=== PATIENT | female | born 1960 | race Caucasian/White ===

== ENCOUNTER 2023-01-25 14:20 | Emergency (ER) | payer OTHER ==
--- OUTSIDE RECORDS SUMMARY | 2023-01-25 14:42 | XMS REPORT | Continuity of Care Document ---
:1960 Author Organization [facility] t Address [address] [place] [address] Care Team Providers Name Role Phone LUCY SMART Attending Clinician Unavailable YISSEL OLVERA Attending Clinician Unavailable Polo Arredondo Attending Clinician Unavailable Polo Cm Attending Clinician Unavailable Von Vallejo Attending Clinician Unavailable Quintin Alanis Attending Clinician Unavailable Thelma, Rosita Sanford Attending Clinician Unavailable Abdoulaye Zarate Attending Clinician Unavailable MICHAELA ARMENDARIZ Attending Clinician Unavailable CONCEPCION ARMANDO Attending Clinician Unavailable OWEN HEMPHILL Attending Clinician Unavailable Pieter Rebolledo Attending Clinician Unavailable MICHAELA ARMENDARIZ Admitting Clinician Unavailable CONCEPCION ARMANDO Admitting Clinician Unavailable OWEN HEMPHILL Admitting Clinician Unavailable Payers Payer Name Policy Type Policy Number Effective Date Expiration Date S ource Problems Condition Condition Condition Status Onset Resolution Last Treating Co mments Source Name Details Category Date Date Treatment Clinician Date h/o Problem 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 (urinary Von tract Regiona infection) l Health Nausea and Problem Inactiv St. vomiting e [facility] Abdominal Problem Active St. pain [facility] Chest pain Problem Inactiv St. e [facility] Severe Problem Active St. malnutriti Von on [facility]a l [facility] Allergies, Adverse Reactions, Alerts Allergy Allergy Status Severity Reaction(s) Onset Inactive Treating Comm ents Source Name Type Date Date Clinician Opioids Allergy Active St[facility] Von Morphine substanc 18:27: Region a Analogue e 04 l s Health Opioids [facility] Morphine substanc 17:27: St. Analogue e 04 [facility] ([place]) Opioids DA [facility] Morphine 00:00: [place] Analogue 00 n s Family History Family Member Diagnosis Comments Start Date Stop Date Source Father Family Myocardial [facility] Regional Infarction? Yes Health Father Family Stroke? Yes [facility] Father Family Diabetes? Yes [facility] Mother Family Breast Cancer? [facility] Yes Health Social History Social Habit Start Date Stop Date Quantity Comments Source Sex Assigned At [birth year] Female [facility] 00:00:00 00:00:00 [facility] Smoking Status Start Date Stop Date Source Unknown if ever smoked [facility] Medications Ordered Filled Start Stop Current Ordering Indication Dosage Frequency Signature Comments Components Source Medication Medication Date Date Medication? Clinician (SIG) Name Name Omeprazole 2019- No 40MG Bedtime St. 03-15 Von 17:58: 18:29 Regiona 05 :50 l Health Omeprazole 2019- No 40MG Bedtime St. 03-15 Von 17:58: 18:29 Regiona 05 :50 l Health Omeprazole 2019- No 40MG Bedtime St. 03-15 Von 17:58: 18:29 Regiona 05 :50 l Health Omeprazole 2019- No 40MG Bedtime [facility] 03[facility]15 [facility] - 16:58: 17:29 St. 05 :50 Von ([place]) Vital Signs Vital Name Observation Time Observation Value Comments Source WEIGHT 2019-05-22 18:25:00 40.179658 kg HEIGHT 2019-05-22 18:25:00 162.56 cm WEIGHT 2019-04-28 04:13:00 39.611437 kg HEIGHT 2019-04-28 04:13:00 162.56 cm WEIGHT 2019-03-15 17:51:00 40.437998 kg HEIGHT 2019-03-15 17:51:00 162.56 cm Procedures Procedure Date / Time Performed Performing Clinician [facility] e CT Abdomen Pelvis W 2022-03-10 14:44:[address] [facility] [address] Brain WO Con 2021-10-31 18:12:00 [facility] ([place]) EKG 12 Lead in 2021-10-31 17:50:00 [facility] Von ([place]) Encounters Start End Encounter Admission Attending Care Care Encounter Source Date/Time Date/Time Type Type Clinicians Facility Department ID 2022-12-30 2022-12-30 Outpatient DIPAK SMART [facility] [id number] [place] 16:02:00 16:02:00 LUCY -[id number] [facility] 2022-12-13 2022-12-13 Outpatient YISSEL ONTIVEROS [facility] [id number] [place] 10:57:00 10:57:00 -[id number] [facility] 2022-03-10 2022-03-10 Emergency ER Arnulfo, STLSJB STLSJB [id number] 14:23:00 17:15:00 Polo -[id number] Jose Renteria n 2022-03-10 2022-03-10 Departed [id number] Reid cfaaaf a1-b St. 14:23:00 17:15:00 Emergency [id number] [place] [id number] 4-a Mckenna -[id number] [facility] [id number] Reg brittany [id number] Ctr-EMERGEN [id number] l Health SERVICES/BS [facility] 2022-02-26 2022-02-26 Emergency ER Bludorn, STLSJB STLSJB [id number] 11:09:00 11:58:00 Polo -[id number] Jose Anno n 2022-02-26 2022-02-26 Outpatient Reid Mathews [id number] St. 11:09:00 11:58:00 [facility] 03 [facility] Ctr-EMERGEN l Ctr-EMERG Health [facility] SERVICES/BS SERVICES/ [facility] 2022-02-26 2022-02-26 Departed [id number] Reid [id number] 40-2 St. 11:09:00 11:58:00 Emergency [id number] [facility] [place] [id number] 8-a Von -afb3-39d Health [id number] Reg brittany [id number] Ctr-EMERGEN [id number] [facility] SERVICES/BS [facility] 2022-02-16 2022-02-16 Departed [id number] Reid [id number] 4d-c St. 13:44:00 16:00:00 Emergency [id number] [facility] [place] [id number] 9-e Von -eba9-8f5 Health [id number] Reg brittany [id number] Ctr-EMERGEN [id number] [facility] SERVICES/BS [facility] 2022-02-16 2022-02-16 [facility] [id number] 13:44:00 16:00:00 Von -[id number] Jose Renteria nando 2021-10-31 2021-10-31 Emergency [facility] [id number] [facility] 16:32:00 22:27:00 Quintin -[id number] Jose Grajeda [place] 2021-10-31 2021-10-31 Departed [id number] [facility] [place] 161e [id number] [facility] 16:32:00 22:27:00 Emergency [id number] [facility] [id number] [facility] - -s7e5-04m [facility] [id number] St [id number] Ctr-EMERGEN [id number] [facility] SERVICES (Randy ) 2021-03-31 2021-03-31 Emergency ER Deneen, STLSJB STLS [id number] 18:07:00 20:29:00 Von -[id number] Jose shaun Anno n 2020-05-14 2020-05-14 Emergency ER [facility] [id number] [facility] 16:39:00 19:40:00 -[id number] Jose shaun Anneloy n 2019-05-24 2019-05-24 Emergency ER Deneen, STLS [facility] [id number] 13:54:00 14:40:00 Von -[id number] Jose Renteria n 2019-05-22 2019-05-23 Inpatient ER Kala, [facility] MED [id number] 16:15:00 16:56:00 Michaela -[id number] Jose Graf 2019-05-09 2019-05-09 Emergency ER Annabelle, [facility] M[id number] [facility] 14:41:00 17:27:00 Quintin -[id number] Jose Graf 2019-04-24 2019-04-28 Inpatient ER Janusz, [facility] [id number] 16:22:00 18:34:00 Concepcion -[id number] Jose Graf 2019-03-15 2019-03-25 Inpatient ER Joby, [facility] [id number] 15:59:00 15:59:00 Owen -[id number] Jose Graf 2018-11-22 2018-11-22 Outpatient R Amaury, [facility] [id number] 07:59:00 08:00:00 Pieter -[id number] Jose Graf Results Test Description Test Time Test Comments Results Result Comments Source Chemistry 2022-03-10 15:14:00 Test Item Value Reference Range Interpretation Comme nts Chemistry (test code = NA-T) 139 mmol/L 136-145 N Chemistry (test code = K-T) 4.1 mmol/L 3.5-5.1 N Chemistry (test code = CL) 103 mmol/L 98-107 N Chemistry (test code = CO2) 27 mmol/L 22-29 N Chemistry (test code = ANGP) 13 mmol/L 10-20 N Chemistry (test code = BUN) 7 mg/dL 9.8-20.1 L Chemistry (test code = CREATT) 0.71 mg/dL 0.6-1.1 N Chemistry (test code = EGFRCR) 98 Reference Range for Estimated GFR: Greater th an 90 mL/min/1.73 m2R eported eGFR is based on the CK D-EPI 2020 equation thatdo es not use a race coefficien t. Chemistry (test code = GLU-T) 95 mg/dL 70-105 N Chemistry (test code = CA) 8.8 mg/dL 7.8-10.44 N Chemistry (test code = TBILI-T) 0.6 mg/dL 0.2-1.2 N Chemistry (test code = TP) 6.3 g/dL 6.0-8.3 N Chemistry (test code = ALB) 4.0 g/dL 3.5-5.0 N Chemistry (test code = GLOB) 2.3 g/dL 2.4-3.5 L Chemistry (test code = AG) 1.7 g/dL 1.2-2.2 N Chemistry (test code = ALP) 56 U/L 40-110 N Chemistry (test code = AST) 15 U/L 5-34 N Chemistry (test code = ALT) 13 U/L 8-55 N [id number] 15:14:00 Test Item Value Reference Range Interpretation Comments Chemistry (test code = LIP) 32 U/L 8-78 N [id number] 15:13:00 Test Item Value Reference Range Interpretation Comments Urinalysis (test code = UACLR) Yellow Yellow Urinalysis (test code = UACLY) Clear Clear Urinalysis (test code = SPGR) 1.015 1.005-1.030 N Urinalysis (test code = NAYELI) 7.5 5.0-9.0 N Urinalysis (test code = UALEU) Negative Negative Urinalysis (test code = UANIT) Negative Negative Urinalysis (test code = Negative mg/dL Neg-Trace PROUADIP) Urinalysis (test code = GLUCU) Negative mg/dL Negative Urinalysis (test code = KETU) Negative mg/dL Negative Urinalysis (test code = 0.2 mg/dL Less than 2 UAUROB) Urinalysis (test code = UABIL) Negative Negative Urinalysis (test code = UABLD) Negative Negative Comment clear yellowUrine Source: Urine Clean CatchUrine [id number] 15:05:00 Test Item Value Reference Range Interpretation Comments Urine Color (test code = 5778-6) Yellow Yellow [facility] [id number] 15:05:00 Test Item Value Reference Range Interpretation Comments Urine Clarity (test code = 97110-3) Clear Clear [facility] gravity of Urine by Test [id number] 15:05:00 Test Item Value Reference Range Interpretation Comments Urine Specific [place] (test code = 1.015 1.005-1.030 5811-5) [facility] pH measurement by automated test [id number] 15:05:00 Test Item Value Reference Range Interpretation Comments Urine pH (test code = 16480-9) 7.5 5.0-9.0 [facility] leukocyte esterase detection by automated test [id number] 15:05:00 Test Item Value Reference Range Interpretation Comments Urine Leukocyte Esterase (test code Negative Negative = 56723-6) [facility] in Urine by Test [id number] 15:05:00 Test Item Value Reference Range Interpretation Comments Urine Nitrite (test code = 5802-4) Negative Negative [facility] protein measurement by automated test strip (mass/volume)2022-03-10 15:05:00 Test Item Value Reference Range Interpretation Comments Urine Protein (test code = Negative mg/dL Neg-Trace 44476-4) [facility] glucose measurement by test strip (mass/volume) 2022-03-10 15:05:00 Test Item Value Reference Range Interpretation Comments Urine Glucose (UA) (test code Negative mg/dL Negative = 5792-7) [facility] ketones measurement by automated test strip (mass/volume)2022-03-10 15:05:00 Test Item Value Reference Range Interpretation Comments Urine Ketones (test code = Negative mg/dL Negative 28403-6) [facility] urobilinogen measurement (units/volume) by test [id number] 15:05:00 Test Item Value Reference Range Interpretation Comments Urine Urobilinogen (test code = 0.2 mg/dL Less than 2 52270-6) [facility] total bilirubin detection by automated test [id number] 15:05:00 Test Item Value Reference Range Interpretation Comments Urine Bilirubin (test code = Negative Negative 37901-5) [facility] hemoglobin detection by automated test strip 2022-03-10 15:05:00 Test Item Value Reference Range Interpretation Comments Urine Blood (test code = 46897-8) Negative Negative [facility]2022-06-30 14:56:00 Test Item Value Reference Range Interpretation Comments Hematology (test code = WBCT) 6.7 thou/uL 4.8-10.8 N Hematology (test code = RBCT) 4.03 mill/uL 4.20-5.40 L Hematology (test code = HGBT) 13.2 g/dL 12.0-16.0 N Hematology (test code = HCTT) 38.7 % 36.0-47.0 N Hematology (test code = MCV) 96.1 fL 78.0-98.0 N Hematology (test code = MCH) 32.8 pg 27.0-31.0 H Hematology (test code = MCHC) 34.2 g/dL 32.0-36.0 N Hematology (test code = RDW) 12.5 % 11.5-14.5 N Hematology (test code = PLTT) 234 thou/uL 130-400 N Hematology (test code = MPV) 7.9 fL 7.4-10.4 N Hematology (test code = %NEUT) 69.3 % 42.0-75.0 N Hematology (test code = %LYMPH) 25.5 % 21.0-51.0 N Hematology (test code = %MONO) 4.3 % 0.0-10.0 N Hematology (test code = %EOS) 0.3 % 0.0-10.0 N Hematology (test code = %BASO) 0.6 % 0.0-1.0 N Hematology (test code = NEUT#) 4.6 thou/uL 1.40-6.50 N Hematology (test code = LYMPH#) 1.7 thou/uL 1.20-3.40 N Hematology (test code = MONO#) 0.3 thou/uL 0.11-0.59 N Hematology (test code = EOS#) 0.0 thou/uL 0.0-0.7 N Hematology (test code = BASO#) 0.0 thou/uL 0.0-0.2 N Automated blood platelet count (count/volume)2022-03-10 14:48:00 Test Item Value Reference Range Interpretation Comments Platelet Count (test code = 234 thou/uL 130-400 777-3) [facility] platelet mean [id number] 14:48:00 Test Item Value Reference Range Interpretation Comments Mean Platelet Volume (test code = 7.9 fL 7.4-10.4 64916-0) [facility] Center[facility] blood neutrophils/100 [id number] 14:48:00 Test Item Value Reference Range Interpretation Comments Neutrophils % (test code = 770-8) 69.3 % 42.0-75.0 [facility] CenterLymphocytes/100 leukocytes in Blood by Automated count 2022-03-10 14:48:00 Test Item Value Reference Range Interpretation Comments Lymphocytes % (test code = 736-9) 25.5 % 21.0-51.0 [facility] monocytes/100 [id number] 14:48:00 Test Item Value Reference Range Interpretation Comments Monocytes % (test code = 5905-5) 4.3 % 0.0-10.0 [facility] eosinophils/100 [id number] 14:48:00 Test Item Value Reference Range Interpretation Comments Eosinophils % (test code = 713-8) 0.3 % 0.0-10.0 [facility] basophils/100 [id number] 14:48:00 Test Item Value Reference Range Interpretation Comments Basophils % (test code = 706-2) 0.6 % 0.0-1.0 [facility] neutrophils automated count (number/volume) 2022-03-10 14:48:00 Test Item Value Reference Range Interpretation Comments Neutrophils # (test code = 751-8) 4.6 thou/uL 1.40-6.50 [facility] Center[facility]ymph[facility] [#/volume] in Blood by Automated count 2022-03-10 14:48:00 Test Item Value Reference Range Interpretation Comments Lymphocytes # (test code = 731-0) 1.7 thou/uL 1.20-3.40 [facility] Center[facility] monocytes automated count (number/volume) 2022-03-10 14:48:00 Test Item Value Reference Range Interpretation Comments Monocytes # (test code = 742-7) 0.3 thou/uL 0.11-0.59 [facility] eosinophils automated count (count/volume) 2022-03-10 14:48:00 Test Item Value Reference Range Interpretation Comments Eosinophils # (test code = 711-2) 0.0 thou/uL 0.0-0.7 [facility] Center[facility] blood basophil count (count/volume) 2022-03-10 14:48:00 Test Item Value Reference Range Interpretation Comments Basophils # (test code = 704-7) 0.0 thou/uL 0.0-0.2 [facility] or plasma sodium measurement (moles/volume) 2022-03-10 14:48:00 Test Item Value Reference Range Interpretation Comments Sodium Level (test code = 2951-2) 139 mmol/L 136-145 [facility] or plasma potassium measurement (moles/volume) 2022-03-10 14:48:00 Test Item Value Reference Range Interpretation Comments Potassium Level (test code = 4.1 mmol/L 3.5-5.1 2823-3) [facility] or plasma chloride measurement (moles/volume) 2022-03-10 14:48:00 Test Item Value Reference Range Interpretation Comments Chloride Level (test code = 103 mmol/L 98-107 5-0) [facility] or plasma carbon dioxide, total measurement (moles/volume)2022-03-10 14:48:00 Test Item Value Reference Range Interpretation Comments Carbon Dioxide Level (test code = 27 mmol/L -29 8-9) [facility] or plasma anion [id number] 14:48:00 Test Item Value Reference Range Interpretation Comments Anion Gap (test code = 59978-3) 13 mmol/L 10-20 [facility] or plasma urea nitrogen measurement (mass/volume)2022-03-10 14:48:00 Test Item Value Reference Range Interpretation Comments Blood Urea Nitrogen (test code = 7 mg/dL 9.8-20.1 3094-0) [facility] or plasma creatinine measurement (mass/volume) 2022-03-10 14:48:00 Test Item Value Reference Range Interpretation Comments Creatinine (test code = 2160-0) 0.71 mg/dL 0.6-1.1 [facility] CenterGlomerular filtration rate/1.73 sq M.predicted [Volume Rate/Area] in Serum, Plasma [id number] 14:48:00 Test Item Value Reference Range Interpretation Comments Estimated GFR (CKD-EPI 2020) (test code 98 = 49372-9) [facility] CenterGlucose [Mass/volume] in Serum or [id number] 14:48:00 Test Item Value Reference Range Interpretation Comments Glucose Level (test code = 2345-7) 95 mg/dL 70-105 [facility] or plasma calcium measurement (mass/volume) 2022-03-10 14:48:00 Test Item Value Reference Range Interpretation Comments Calcium Level (test code = 02149-3) 8.8 mg/dL 7.8-10.44 [facility] or plasma total bilirubin measurement (mass/volume)2022-03-10 14:48:00 Test Item Value Reference Range Interpretation Comments Total Bilirubin (test code = 0.6 mg/dL 0.2-1.2 1974-2) [facility] or plasma protein measurement (mass/volume) 2022-03-10 14:48:00 Test Item Value Reference Range Interpretation Comments Serum Total Protein (test code = 6.3 g/dL 6.0-8.3 2885-2) [facility] or plasma albumin measurement by bromocresol green (BCG) dye binding method ([id number] 14:48:00 Test Item Value Reference Range Interpretation Comments Albumin (test code = 09189-3) 4.0 g/dL 3.5-5.0 [facility] CenterGlobulin [Mass/volume] in Serum by calculation 2022-03-10 14:48:00 Test Item Value Reference Range Interpretation Comments Globulin (test code = 98107-3) 2.3 g/dL 2.4-3.5 [facility] CenterAlbumin/Globulin [Mass Ratio] in Serum or Plasma 2022-03-10 14:48:00 Test Item Value Reference Range Interpretation Comments Albumin/Globulin Ratio (test code = 1.7 g/dL 1.2-2.2 1759-0) [facility] [Enzymatic activity/volume] in Serum or [id number] 14:48:00 Test Item Value Reference Range Interpretation Comments Alkaline Phosphatase (test code = 56 U/L 40-110 6768-6) [facility] or plasma aspartate aminotransferase measurement (enzymatic activity/volume)2022-03-10 14:48:00 Test Item Value Reference Range Interpretation Comments Aspartate Amino Transf (AST/SGOT) 15 U/L 5-34 (test code = 1920-8) [facility] or plasma alanine aminotransferase measurement without P-5'-P (enzymatic [id number] 14:48:00 Test Item Value Reference Range Interpretation Comments Alanine Aminotransferase (ALT/SGPT) 13 U/L 8-55 (test code = 1744-2) [facility] or plasma lipase measurement (enzymatic activity/volume)2022-03-10 14:48:00 Test Item Value Reference Range Interpretation Comments Lipase (test code = 3040-3) 32 U/L 8-78 [facility] CenterLeukocytes [#/volume] in Blood by Automated count 2022-03-10 14:48:00 Test Item Value Reference Range Interpretation Comments White Blood Count (test code = 6.7 thou/uL 4.8-10.8 6690-2) [facility] erythrocytes automated count (number/volume) 2022-03-10 14:48:00 Test Item Value Reference Range Interpretation Comments Red Blood Count (test code = 4.03 mill/uL 4.20-5.40 789-8) [facility] hemoglobin measurement (mass/volume)2022-03-10 14:48:00 Test Item Value Reference Range Interpretation Comments Hemoglobin (test code = 718-7) 13.2 g/dL 12.0-16.0 [facility] CenterAutom[facility] erythrocyte mean corpuscular volume 2022-03-10 14:48:00 Test Item Value Reference Range Interpretation Comments Mean Corpuscular Volume (test code = 96.1 fL 78.0-98.0 787-2) [facility] eryth[facility] mean corpuscular hemoglobin (mass per erythrocyte)2022-03-10 14:48:00 Test Item Value Reference Range Interpretation Comments Mean Corpuscular Hemoglobin (test 32.8 pg 27.0-31.0 code = 785-6) [facility] CenterAutom[facility] erythrocyte mean corpuscular hemoglobin concentration measurement (mass/[id number] 14:48:00 Test Item Value Reference Range Interpretation Comments Mean Corpuscular Hemoglobin Concent 34.2 g/dL 32.0-36.0 (test code = 786-4) [facility] erythrocyte distribution width ratio 2022-03-10 14:48:00 Test Item Value Reference Range Interpretation Comments Red Cell Distribution Width (test code 12.5 % 11.5-14.5 = 788-0) [facility] CenterUrinalysis2022-06-08 15:26:00 Test Item Value Reference Range Interpretation Comments Urinalysis (test code = UACLR) Yellow Yellow Urinalysis (test code = UACLY) Clear Clear Urinalysis (test code = SPGR) 1.015 1.005-1.030 N Urinalysis (test code = NAYELI) 7.0 5.0-9.0 N Urinalysis (test code = UALEU) Negative Negative Urinalysis (test code = UANIT) Negative Negative Urinalysis (test code = Negative mg/dL Neg-Trace PROUADIP) Urinalysis (test code = GLUCU) Negative mg/dL Negative Urinalysis (test code = KETU) Negative mg/dL Negative Urinalysis (test code = 0.2 mg/dL Less than 2 UAUROB) Urinalysis (test code = UABIL) Negative Negative Urinalysis (test code = UABLD) Trace Negative A Urine Source: Urine Clean [id number] 15:26:00 Test Item Value Reference Range Interpretation Comments Urinalysis (test code = UARBC) None Seen HPF 0-3 Urinalysis (test code = UAWBC) None Seen HPF 0-3 Urinalysis (test code = 0-3 HPF 0-3 UASQUAM) Urinalysis (test code = UABAC) None Seen HPF None Seen Urine Source: Urine Clean CatchUrine [id number] 15:15:00 Test Item Value Reference Range Interpretation Comments Urine Color (test code = 5778-6) Yellow Yellow [facility] CenterUrine [id number] 15:15:00 Test Item Value Reference Range Interpretation Comments Urine Clarity (test code = 65283-1) Clear Clear [facility] gravity of Urine by Test [id number] 15:15:00 Test Item Value Reference Range Interpretation Comments Urine Specific [place] (test code = 1.015 1.005-1.030 5811-5) [facility] pH measurement by automated test [id number] 15:15:00 Test Item Value Reference Range Interpretation Comments Urine pH (test code = 42821-8) 7.0 5.0-9.0 [facility] leukocyte esterase detection by automated test [id number] 15:15:00 Test Item Value Reference Range Interpretation Comments Urine Leukocyte Esterase (test code Negative Negative = 55145-4) [facility] in Urine by Test [id number] 15:15:00 Test Item Value Reference Range Interpretation Comments Urine Nitrite (test code = 5802-4) Negative Negative [facility] protein measurement by automated test strip (mass/volume)2022-02-16 15:15:00 Test Item Value Reference Range Interpretation Comments Urine Protein (test code = Negative mg/dL Neg-Trace 89842-8) [facility] glucose measurement by test strip (mass/volume) 2022-02-16 15:15:00 Test Item Value Reference Range Interpretation Comments Urine Glucose (UA) (test code Negative mg/dL Negative = 5792-7) [facility] ketones measurement by automated test strip (mass/volume)2022-02-16 15:15:00 Test Item Value Reference Range Interpretation Comments Urine Ketones (test code = Negative mg/dL Negative 88438-4) [facility] urobilinogen measurement (units/volume) by test [id number] 15:15:00 Test Item Value Reference Range Interpretation Comments Urine Urobilinogen (test code = 0.2 mg/dL Less than 2 53691-2) [facility] total bilirubin detection by automated test [id number] 15:15:00 Test Item Value Reference Range Interpretation Comments Urine Bilirubin (test code = Negative Negative 49610-1) [facility] hemoglobin detection by automated test strip 2022-02-16 15:15:00 Test Item Value Reference Range Interpretation Comments Urine Blood (test code = 72424-4) Trace Negative [facility] sediment erythrocyte count by microscopy (number/high power field)2022-02-16 15:15:00 Test Item Value Reference Range Interpretation Comments Urine RBC (test code = 47430-7) None [facility] sediment by light [id number] 15:15:00 Test Item Value Reference Range Interpretation Comments Urine WBC (test code = 87165-8) None Seen HPF [facility] CenterSquamous epithelial cells detection in urine sediment by light [id number] 15:15:00 Test Item Value Reference Range Interpretation Comments Urine Squamous Epithelial Cells (test 0-3 HPF code = 45266-8) [facility] urine sediment by light [id number] 15:15:00 Test Item Value Reference Range Interpretation Comments Urine Bacteria (test code = None Seen HPF None Seen 67309-2) [facility] [id number] 15:15:00 Test Item Value Reference Range Interpretation Comments Urine Color (test code = 5778-6) Yellow Yellow [facility] [id number] 15:15:00 Test Item Value Reference Range Interpretation Comments Urine Clarity (test code = 82344-0) Clear Clear [facility] gravity of Urine by Test [id number] 15:15:00 Test Item Value Reference Range Interpretation Comments Urine Specific [place] (test code = 1.015 1.005-1.030 5811-5) [facility] pH measurement by automated test [id number] 15:15:00 Test Item Value Reference Range Interpretation Comments Urine pH (test code = 52723-1) 7.0 5.0-9.0 [facility] leukocyte esterase detection by automated test [id number] 15:15:00 Test Item Value Reference Range Interpretation Comments Urine Leukocyte Esterase (test code Negative Negative = 18928-9) [facility]Pres[facility] in Urine by Test [id number] 15:15:00 Test Item Value Reference Range Interpretation Comments Urine Nitrite (test code = 5802-4) Negative Negative [facility] protein measurement by automated test strip (mass/volume)2022-02-16 15:15:00 Test Item Value Reference Range Interpretation Comments Urine Protein (test code = Negative mg/dL Neg-Trace 87462-1) [facility] glucose measurement by test strip (mass/volume) 2022-02-16 15:15:00 Test Item Value Reference Range Interpretation Comments Urine Glucose (UA) (test code Negative mg/dL Negative = 5792-7) [facility] ketones measurement by automated test strip (mass/volume)2022-02-16 15:15:00 Test Item Value Reference Range Interpretation Comments Urine Ketones (test code = Negative mg/dL Negative 30116-9) [facility] urobilinogen measurement (units/volume) by test [id number] 15:15:00 Test Item Value Reference Range Interpretation Comments Urine Urobilinogen (test code = 0.2 mg/dL Less than 2 06548-3) [facility] total bilirubin detection by automated test [id number] 15:15:00 Test Item Value Reference Range Interpretation Comments Urine Bilirubin (test code = Negative Negative 48667-8) [facility] hemoglobin detection by automated test strip 2022-02-16 15:15:00 Test Item Value Reference Range Interpretation Comments Urine Blood (test code = 63707-7) Trace Negative [facility] sediment erythrocyte count by microscopy (number/high power field)2022-02-16 15:15:00 Test Item Value Reference Range Interpretation Comments Urine RBC (test code = 87264-6) None [facility]en HPF [facility] Center[facility]ukocytes detection in urine sediment by light [id number] 15:15:00 Test Item Value Reference Range Interpretation Comments Urine WBC (test code = 74122-0) None Seen HPF [facility] CenterSquamous epithelial cells detection in urine sediment by light [id number] 15:15:00 Test Item Value Reference Range Interpretation Comments Urine Squamous Epithelial Cells (test 0-3 HPF code = 99117-6) [facility] Center[facility] in urine sediment by light [id number] 15:15:00 Test Item Value Reference Range Interpretation Comments Urine Bacteria (test code = None Seen HPF None Seen 98742-6) [facility] [id number] 15:15:00 Test Item Value Reference Range Interpretation Comments Urine Color (test code = 5778-6) Yellow Yellow [facility] [id number] 15:15:00 Test Item Value Reference Range Interpretation Comments Urine Clarity (test code = 81893-5) Clear Clear [facility] gravity of Urine by Test [id number] 15:15:00 Test Item Value Reference Range Interpretation Comments Urine Specific [place] (test code = 1.015 1.005-1.030 5811-5) [facility] pH measurement by automated test [id number] 15:15:00 Test Item Value Reference Range Interpretation Comments Urine pH (test code = 58225-8) 7.0 5.0-9.0 [facility] leukocyte esterase detection by automated test [id number] 15:15:00 Test Item Value Reference Range Interpretation Comments Urine Leukocyte Esterase (test code Negative Negative = 52024-9) [facility] by Test [id number] 15:15:00 Test Item Value Reference Range Interpretation Comments Urine Nitrite (test code = 5802-4) Negative Negative [facility] protein measurement by automated test strip (mass/volume)2022-02-16 15:15:00 Test Item Value Reference Range Interpretation Comments Urine Protein (test code = Negative mg/dL Neg-Trace 02819-0) [facility] glucose measurement by test strip (mass/volume) 2022-02-16 15:15:00 Test Item Value Reference Range Interpretation Comments Urine Glucose (UA) (test code Negative mg/dL Negative = 5792-7) [facility] ketones measurement by automated test strip (mass/volume)2022-02-16 15:15:00 Test Item Value Reference Range Interpretation Comments Urine Ketones (test code = Negative mg/dL Negative 72005-9) [facility] urobilinogen measurement (units/volume) by test [id number] 15:15:00 Test Item Value Reference Range Interpretation Comments Urine Urobilinogen (test code = 0.2 mg/dL Less than 2 61316-4) [facility] total bilirubin detection by automated test [id number] 15:15:00 Test Item Value Reference Range Interpretation Comments Urine Bilirubin (test code = Negative Negative 55045-7) [facility] by automated test strip 2022-02-16 15:15:00 Test Item Value Reference Range Interpretation Comments Urine Blood (test code = 33510-8) Trace Negative [facility] sediment erythrocyte count by microscopy (number/high power field)2022-02-16 15:15:00 Test Item Value Reference Range Interpretation Comments Urine RBC (test code = 93993-9) None Seen HPF [facility] CenterLeukocytes detection in urine sediment by light [id number] 15:15:00 Test Item Value Reference Range Interpretation Comments Urine WBC (test code = 33693-4) None Seen HPF [facility] CenterSquamous epithelial cells detection in urine sediment by light pxghifzqmc6975-22-55 15:15:00 Test Item Value Reference Range Interpretation Comments Urine Squamous Epithelial Cells (test 0-3 HPF code = 48767-8) [facility] CenterB[facility] detection in urine sediment by light [id number] 15:15:00 Test Item Value Reference Range Interpretation Comments Urine Bacteria (test code = None Seen HPF None Seen 91654-5) [facility] Center[facility]istry20[facility] 14:40:00 Test Item Value Reference Range Interpretation Comments Chemistry (test code 141 mmol/L 136-145 N = NA-T) Chemistry (test code 4.1 mmol/L 3.5-5.1 N = K-T) Chemistry (test code 104 mmol/L 98-107 N = CL) Chemistry (test code 27 mmol/L 22-29 N = CO2) Chemistry (test code 14 mmol/L 10-20 N = ANGP) Chemistry (test code 8 mg/dL 9.8-20.1 L = BUN) Chemistry (test code 0.73 mg/dL 0.6-1.1 N = CREATT) Chemistry (test code 82 Referen ce Range for = EGFRMDRD) Estimated GFR: Greater than 90 mL/min/ 1.73 m2NOTE:The MDRD equation has no t been validated for u se with theelderly (ove r 70 years of age), women, patients with serious comorbi d condition or pe rsons with extremes o fbody size, muscle ma ss, or nutritional sta tus. Chemistry (test code 95 mg/dL 70-105 N = GLU-T) Chemistry (test code 9.0 mg/dL 7.8-10.44 N = CA) Chemistry (test code 0.5 mg/dL 0.2-1.2 N = TBILI-T) Chemistry (test code 6.2 g/dL 6.0-8.3 N = TP) Chemistry (test code 4.0 g/dL 3.5-5.0 N = ALB) Chemistry (test code 2.2 g/dL 2.4-3.5 L = GLOB) Chemistry (test code 1.8 g/dL 1.2-2.2 N = AG) Chemistry (test code 64 U/L 40-110 N = ALP) Chemistry (test code 16 U/L 5-34 N = AST) Chemistry (test code 11 U/L 8-55 N = ALT) [id number] 14:24:00 Test Item Value Reference Range Interpretation Comments Hematology (test code = WBCT) 6.2 thou/uL 4.8-10.8 N Hematology (test code = RBCT) 4.03 mill/uL 4.20-5.40 L Hematology (test code = HGBT) 13.4 g/dL 12.0-16.0 N Hematology (test code = HCTT) 38.8 % 36.0-47.0 N Hematology (test code = MCV) 96.3 fL 78.0-98.0 N Hematology (test code = MCH) 33.3 pg 27.0-31.0 H Hematology (test code = MCHC) 34.6 g/dL 32.0-36.0 N Hematology (test code = RDW) 12.7 % 11.5-14.5 N Hematology (test code = PLTT) 177 thou/uL 130-400 N Hematology (test code = MPV) 8.2 fL 7.4-10.4 N Hematology (test code = %NEUT) 66.2 % 42.0-75.0 N Hematology (test code = %LYMPH) 28.0 % 21.0-51.0 N Hematology (test code = %MONO) 4.9 % 0.0-10.0 N Hematology (test code = %EOS) 0.4 % 0.0-10.0 N Hematology (test code = %BASO) 0.6 % 0.0-1.0 N Hematology (test code = NEUT#) 4.1 thou/uL 1.40-6.50 N Hematology (test code = LYMPH#) 1.7 thou/uL 1.20-3.40 N Hematology (test code = MONO#) 0.3 thou/uL 0.11-0.59 N Hematology (test code = EOS#) 0.0 thou/uL 0.0-0.7 N Hematology (test code = BASO#) 0.0 thou/uL 0.0-0.2 N Serum or plasma sodium measurement (moles/volume)2022-02-16 14:16:00 Test Item Value Reference Range Interpretation Comments Sodium Level (test code = 2951-2) 141 mmol/L 136-145 [facility] or plasma potassium measurement (moles/volume) 2022-02-16 14:16:00 Test Item Value Reference Range Interpretation Comments Potassium Level (test code = 4.1 mmol/L 3.5-5.1 2823-3) [facility] or plasma chloride measurement (moles/volume) 2022-02-16 14:16:00 Test Item Value Reference Range Interpretation Comments Chloride Level (test code = 104 mmol/L 98-107 5-0) [facility] or plasma carbon dioxide, total measurement (moles/volume)2022-02-16 14:16:00 Test Item Value Reference Range Interpretation Comments Carbon Dioxide Level (test code = 27 mmol/L 22-29 2027-) [facility] or plasma anion [id number] 14:16:00 Test Item Value Reference Range Interpretation Comments Anion Gap (test code = 11035-0) 14 mmol/L 10-20 [facility] or plasma urea nitrogen measurement (mass/volume)2022-02-16 14:16:00 Test Item Value Reference Range Interpretation Comments Blood Urea Nitrogen (test code = 8 mg/dL 9.8-20.1 3094-0) [facility] or plasma creatinine measurement (mass/volume) 2022-02-16 14:16:00 Test Item Value Reference Range Interpretation Comments Creatinine (test code = 2160-0) 0.73 mg/dL 0.6-1.1 [facility]Gl[facility] [Mass/volume] in Serum or Sqpbgf8487-03-11 14:16:00 Test Item Value Reference Range Interpretation Comments Glucose Level (test code = 2345-7) 95 mg/dL 70-105 [facility] or plasma calcium measurement (mass/volume) 2022-02-16 14:16:00 Test Item Value Reference Range Interpretation Comments Calcium Level (test code = 76576-6) 9.0 mg/dL 7.8-10.44 [facility] or plasma total bilirubin measurement (mass/volume)2022-02-16 14:16:00 Test Item Value Reference Range Interpretation Comments Total Bilirubin (test code = 0.5 mg/dL 0.2-1.2 1974-2) [facility] or plasma protein measurement (mass/volume) 2022-02-16 14:16:00 Test Item Value Reference Range Interpretation Comments Serum Total Protein (test code = 6.2 g/dL 6.0-8.3 2885-2) [facility] or plasma albumin measurement by bromocresol green (BCG) dye binding method ([id number] 14:16:00 Test Item Value Reference Range Interpretation Comments Albumin (test code = 12842-1) 4.0 g/dL 3.5-5.0 [facility] CenterGlobulin [Mass/volume] in Serum by calculation 2022-02-16 14:16:00 Test Item Value Reference Range Interpretation Comments Globulin (test code = 89301-1) 2.2 g/dL 2.4-3.5 [facility] Center[facility]/Globulin [Mass Ratio] in Serum or Plasma 2022-02-16 14:16:00 Test Item Value Reference Range Interpretation Comments Albumin/Globulin Ratio (test code = 1.8 g/dL 1.2-2.2 1759-0) [facility] [Enzymatic activity/volume] in Serum or [id number] 14:16:00 Test Item Value Reference Range Interpretation Comments Alkaline Phosphatase (test code = 64 U/L 40-110 6768-6) [facility] or plasma aspartate aminotransferase measurement (enzymatic activity/volume)2022-02-16 14:16:00 Test Item Value Reference Range Interpretation Comments Aspartate Amino Transf (AST/SGOT) 16 U/L 5-34 (test code = 1920-8) [facility] or plasma alanine aminotransferase measurement without P-5'-P (enzymatic [id number] 14:16:00 Test Item Value Reference Range Interpretation Comments Alanine Aminotransferase (ALT/SGPT) 11 U/L 8-55 (test code = 1744-2) [facility] CenterLeukocytes [#/volume] in Blood by Automated count 2022-02-16 14:16:00 Test Item Value Reference Range Interpretation Comments White Blood Count (test code = 6.2 thou/uL 4.8-10.8 6690-2) [facility] erythrocytes automated count (number/volume) 2022-02-16 14:16:00 Test Item Value Reference Range Interpretation Comments Red Blood Count (test code = 4.03 mill/uL 4.20-5.40 789-8) [facility] hemoglobin measurement (mass/volume)2022-02-16 14:16:00 Test Item Value Reference Range Interpretation Comments Hemoglobin (test code = 718-7) 13.4 g/dL 12.0-16.0 [facility] CenterAutom[facility] erythrocyte mean corpuscular volume 2022-02-16 14:16:00 Test Item Value Reference Range Interpretation Comments Mean Corpuscular Volume (test code = 96.3 fL 78.0-98.0 787-2) [facility] CenterAutom[facility] erythrocyte mean corpuscular hemoglobin (mass per erythrocyte)2022-02-16 14:16:00 Test Item Value Reference Range Interpretation Comments Mean Corpuscular Hemoglobin (test 33.3 pg 27.0-31.0 code = 785-6) [facility] CenterAutom[facility] erythrocyte mean corpuscular hemoglobin concentration measurement (mass/mun7687-06-05 14:16:00 Test Item Value Reference Range Interpretation Comments Mean Corpuscular Hemoglobin Concent 34.6 g/dL 32.0-36.0 (test code = 786-4) [facility] width ratio 2022-02-16 14:16:00 Test Item Value Reference Range Interpretation Comments Red Cell Distribution Width (test code 12.7 % 11.5-14.5 = 788-0) [facility] platelet count (count/volume) 2022-02-16 14:16:00 Test Item Value Reference Range Interpretation Comments Platelet Count (test code = 177 thou/uL 130-400 777-3) [facility] mean [id number] 14:16:00 Test Item Value Reference Range Interpretation Comments Mean Platelet Volume (test code = 8.2 fL 7.4-10.4 50962-2) [facility] neutrophils/100 wlajiuxvny5399-58-39 14:16:00 Test Item Value Reference Range Interpretation Comments Neutrophils % (test code = 770-8) 66.2 % 42.0-75.0 [facility] CenterLymphocytes/100 leukocytes in Blood by Automated count 2022-02-16 14:16:00 Test Item Value Reference Range Interpretation Comments Lymphocytes % (test code = 736-9) 28.0 % 21.0-51.0 [facility] monocytes/100 hnbitlzbot7905-50-92 14:16:00 Test Item Value Reference Range Interpretation Comments Monocytes % (test code = 5905-5) 4.9 % 0.0-10.0 [facility] eosinophils/100 lfwxslavtk5245-06-25 14:16:00 Test Item Value Reference Range Interpretation Comments Eosinophils % (test code = 713-8) 0.4 % 0.0-10.0 [facility] basophils/100 ciojlxfgpy4349-00-34 14:16:00 Test Item Value Reference Range Interpretation Comments Basophils % (test code = 706-2) 0.6 % 0.0-1.0 [facility] neutrophils automated count (number/volume) 2022-02-16 14:16:00 Test Item Value Reference Range Interpretation Comments Neutrophils # (test code = 751-8) 4.1 thou/uL 1.40-6.50 [facility] CenterLymph[facility] [#/volume] in Blood by Automated count 2022-02-16 14:16:00 Test Item Value Reference Range Interpretation Comments Lymphocytes # (test code = 731-0) 1.7 thou/uL 1.20-3.40 [facility] monocytes automated count (number/volume) 2022-02-16 14:16:00 Test Item Value Reference Range Interpretation Comments Monocytes # (test code = 742-7) 0.3 thou/uL 0.11-0.59 [facility] eosinophils automated count (count/volume) 2022-02-16 14:16:00 Test Item Value Reference Range Interpretation Comments Eosinophils # (test code = 711-2) 0.0 thou/uL 0.0-0.7 [facility] CenterAutom[facility] blood basophil count (count/volume) 2022-02-16 14:16:00 Test Item Value Reference Range Interpretation Comments Basophils # (test code = 704-7) 0.0 thou/uL 0.0-0.2 [facility] or plasma sodium measurement (moles/volume) 2022-02-16 14:16:00 Test Item Value Reference Range Interpretation Comments Sodium Level (test code = 2951-2) 141 mmol/L 136-145 [facility] or plasma potassium measurement (moles/volume) 2022-02-16 14:16:00 Test Item Value Reference Range Interpretation Comments Potassium Level (test code = 4.1 mmol/L 3.5-5.1 2823-3) [facility] or plasma chloride measurement (moles/volume) 2022-02-16 14:16:00 Test Item Value Reference Range Interpretation Comments Chloride Level (test code = 104 mmol/L 98-107 5-0) [facility] or plasma carbon dioxide, total measurement (moles/volume)2022-02-16 14:16:00 Test Item Value Reference Range Interpretation Comments Carbon Dioxide Level (test code = 27 mmol/L -29 2028-05) [facility] or plasma anion [id number] 14:16:00 Test Item Value Reference Range Interpretation Comments Anion Gap (test code = 91756-1) 14 mmol/L 10-20 [facility] or plasma urea nitrogen measurement (mass/volume)2022-02-16 14:16:00 Test Item Value Reference Range Interpretation Comments Blood Urea Nitrogen (test code = 8 mg/dL 9.8-20.1 3094-0) [facility] or plasma creatinine measurement (mass/volume) 2022-02-16 14:16:00 Test Item Value Reference Range Interpretation Comments Creatinine (test code = 2160-0) 0.73 mg/dL 0.6-1.1 [facility] CenterGlucose [Mass/volume] in Serum or Tmgioc1997-77-38 14:16:00 Test Item Value Reference Range Interpretation Comments Glucose Level (test code = 2345-7) 95 mg/dL 70-105 [facility] or plasma calcium measurement (mass/volume) 2022-02-16 14:16:00 Test Item Value Reference Range Interpretation Comments Calcium Level (test code = 80739-6) 9.0 mg/dL 7.8-10.44 [facility] or plasma total bilirubin measurement (mass/volume)2022-02-16 14:16:00 Test Item Value Reference Range Interpretation Comments Total Bilirubin (test code = 0.5 mg/dL 0.2-1.2 1975-2) [facility] or plasma protein measurement (mass/volume) 2022-02-16 14:16:00 Test Item Value Reference Range Interpretation Comments Serum Total Protein (test code = 6.2 g/dL 6.0-8.3 2885-2) [facility] or plasma albumin measurement by bromocresol green (BCG) dye binding method ([id number] 14:16:00 Test Item Value Reference Range Interpretation Comments Albumin (test code = 53727-0) 4.0 g/dL 3.5-5.0 [facility] CenterGl[facility] [Mass/volume] in Serum by calculation 2022-02-16 14:16:00 Test Item Value Reference Range Interpretation Comments Globulin (test code = 76946-5) 2.2 g/dL 2.4-3.5 [facility] CenterAlbum[facility]/Globulin [Mass Ratio] in Serum or Plasma 2022-02-16 14:16:00 Test Item Value Reference Range Interpretation Comments Albumin/Globulin Ratio (test code = 1.8 g/dL 1.2-2.2 1759-0) [facility] [Enzymatic activity/volume] in Serum or Bjfcat7790-17-29 14:16:00 Test Item Value Reference Range Interpretation Comments Alkaline Phosphatase (test code = 64 U/L 40-110 6768-6) [facility] aspartate aminotransferase measurement (enzymatic activity/volume)2022-02-16 14:16:00 Test Item Value Reference Range Interpretation Comments Aspartate Amino Transf (AST/SGOT) 16 U/L 5-34 (test code = 1920-8) [facility] alanine aminotransferase measurement without P-5'-P (enzymatic czefua4889-07-04 14:16:00 Test Item Value Reference Range Interpretation Comments Alanine Aminotransferase (ALT/SGPT) 11 U/L 8-55 (test code = 1744-2) [facility]Leuk[facility] [#/volume] in Blood by Automated count 2022-02-16 14:16:00 Test Item Value Reference Range Interpretation Comments White Blood Count (test code = 6.2 thou/uL 4.8-10.8 6690-2) [facility] erythrocytes automated count (number/volume) 2022-02-16 14:16:00 Test Item Value Reference Range Interpretation Comments Red Blood Count (test code = 4.03 mill/uL 4.20-5.40 789-8) [facility] hemoglobin measurement (mass/volume)2022-02-16 14:16:00 Test Item Value Reference Range Interpretation Comments Hemoglobin (test code = 718-7) 13.4 g/dL 12.0-16.0 [facility] CenterAutom[facility] erythrocyte mean corpuscular volume 2022-02-16 14:16:00 Test Item Value Reference Range Interpretation Comments Mean Corpuscular Volume (test code = 96.3 fL 78.0-98.0 787-2) [facility] mean corpuscular hemoglobin (mass per erythrocyte)2022-02-16 14:16:00 Test Item Value Reference Range Interpretation Comments Mean Corpuscular Hemoglobin (test 33.3 pg 27.0-31.0 code = 785-6) [facility] CenterAutom[facility] erythrocyte mean corpuscular hemoglobin concentration measurement (mass/jmr2654-56-86 14:16:00 Test Item Value Reference Range Interpretation Comments Mean Corpuscular Hemoglobin Concent 34.6 g/dL 32.0-36.0 (test code = 786-4) [facility] width ratio 2022-02-16 14:16:00 Test Item Value Reference Range Interpretation Comments Red Cell Distribution Width (test code 12.7 % 11.5-14.5 = 788-0) [facility] count (count/volume) 2022-02-16 14:16:00 Test Item Value Reference Range Interpretation Comments Platelet Count (test code = 177 thou/uL 130-400 777-3) [facility] blood platelet mean [id number] 14:16:00 Test Item Value Reference Range Interpretation Comments Mean Platelet Volume (test code = 8.2 fL 7.4-10.4 55810-5) [facility] blood neutrophils/100 ayulkggymu6720-75-78 14:16:00 Test Item Value Reference Range Interpretation Comments Neutrophils % (test code = 770-8) 66.2 % 42.0-75.0 [facility] leukocytes in Blood by Automated count 2022-02-16 14:16:00 Test Item Value Reference Range Interpretation Comments Lymphocytes % (test code = 736-9) 28.0 % 21.0-51.0 [facility]/100 [id number] 14:16:00 Test Item Value Reference Range Interpretation Comments Monocytes % (test code = 5905-5) 4.9 % 0.0-10.0 [facility]/100 [id number] 14:16:00 Test Item Value Reference Range Interpretation Comments Eosinophils % (test code = 713-8) 0.4 % 0.0-10.0 [facility] bas[facility]/100 [id number] 14:16:00 Test Item Value Reference Range Interpretation Comments Basophils % (test code = 706-2) 0.6 % 0.0-1.0 [facility] neutrophils automated count (number/volume) 2022-02-16 14:16:00 Test Item Value Reference Range Interpretation Comments Neutrophils # (test code = 751-8) 4.1 thou/uL 1.40-6.50 [facility] by Automated count 2022-02-16 14:16:00 Test Item Value Reference Range Interpretation Comments Lymphocytes # (test code = 731-0) 1.7 thou/uL 1.20-3.40 [facility] count (number/volume) 2022-02-16 14:16:00 Test Item Value Reference Range Interpretation Comments Monocytes # (test code = 742-7) 0.3 thou/uL 0.11-0.59 [facility] eosinophils automated count (count/volume) 2022-02-16 14:16:00 Test Item Value Reference Range Interpretation Comments Eosinophils # (test code = 711-2) 0.0 thou/uL [facility]7 [facility] count (count/volume) 2022-02-16 14:16:00 Test Item Value Reference Range Interpretation Comments Basophils # (test code = 704-7) 0.0 thou/uL 0.0-0.2 [facility] or plasma sodium measurement (moles/volume) 2022-02-16 14:16:00 Test Item Value Reference Range Interpretation Comments Sodium Level (test code = 2951-2) 141 mmol/L 136-145 [facility] or plasma potassium measurement (moles/volume) 2022-02-16 14:16:00 Test Item Value Reference Range Interpretation Comments Potassium Level (test code = 4.1 mmol/L 3.5-5.1 2823-3) [facility] or plasma chloride measurement (moles/volume) 2022-02-16 14:16:00 Test Item Value Reference Range Interpretation Comments Chloride Level (test code = 104 mmol/L 98-107 5-0) [facility] or plasma carbon dioxide, total measurement (moles/volume)2022-02-16 14:16:00 Test Item Value Reference Range Interpretation Comments Carbon Dioxide Level (test code = 27 mmol/L -29 2028-05) [facility] or plasma anion [id number] 14:16:00 Test Item Value Reference Range Interpretation Comments Anion Gap (test code = 90757-8) 14 mmol/L 10-20 [facility] or plasma urea nitrogen measurement (mass/volume)2022-02-16 14:16:00 Test Item Value Reference Range Interpretation Comments Blood Urea Nitrogen (test code = 8 mg/dL 9.8-20.1 3094-0) [facility] or plasma creatinine measurement (mass/volume) 2022-02-16 14:16:00 Test Item Value Reference Range Interpretation Comments Creatinine (test code = 2160-0) 0.73 mg/dL 0.6-1.1 [facility] [Mass/volume] in Serum or [id number] 14:16:00 Test Item Value Reference Range Interpretation Comments Glucose Level (test code = 2345-7) 95 mg/dL 70-105 [facility] or plasma calcium measurement (mass/volume) 2022-02-16 14:16:00 Test Item Value Reference Range Interpretation Comments Calcium Level (test code = 09926-2) 9.0 mg/dL 7.8-10.44 [facility] or plasma total bilirubin measurement (mass/volume)2022-02-16 14:16:00 Test Item Value Reference Range Interpretation Comments Total Bilirubin (test code = 0.5 mg/dL 0.2-1.2 1975-2) [facility] or plasma protein measurement (mass/volume) 2022-02-16 14:16:00 Test Item Value Reference Range Interpretation Comments Serum Total Protein (test code = 6.2 g/dL 6.0-8.3 2885-2) [facility] or plasma albumin measurement by bromocresol green (BCG) dye binding method ([id number] 14:16:00 Test Item Value Reference Range Interpretation Comments Albumin (test code = 55112-3) 4.0 g/dL 3.5-5.0 [facility] [Mass/volume] in Serum by calculation 2022-02-16 14:16:00 Test Item Value Reference Range Interpretation Comments Globulin (test code = 68391-0) 2.2 g/dL 2.4-3.5 [facility]Globulin [Mass Ratio] in Serum or Plasma 2022-02-16 14:16:00 Test Item Value Reference Range Interpretation Comments Albumin/Globulin Ratio (test code = 1.8 g/dL 1.2-2.2 1759-0) [facility] CenterAlk[facility] phosphatase [Enzymatic activity/volume] in Serum or [id number] 14:16:00 Test Item Value Reference Range Interpretation Comments Alkaline Phosphatase (test code = 64 U/L 40-110 6768-6) [facility]ate aminotransferase measurement (enzymatic activity/volume)2022-02-16 14:16:00 Test Item Value Reference Range Interpretation Comments Aspartate Amino Transf (AST/SGOT) 16 U/L 5-34 (test code = 1920-8) [facility] or plasma alanine aminotransferase measurement without P-5'-P (enzymatic [id number] 14:16:00 Test Item Value Reference Range Interpretation Comments Alanine Aminotransferase (ALT/SGPT) 11 U/L 8-55 (test code = 1744-2) [facility]uk[facility] [#/volume] in Blood by Automated count 2022-02-16 14:16:00 Test Item Value Reference Range Interpretation Comments White Blood Count (test code = 6.2 thou/uL 4.8-10.8 6690-2) [facility] erythrocytes automated count (number/volume) 2022-02-16 14:16:00 Test Item Value Reference Range Interpretation Comments Red Blood Count (test code = 4.03 mill/uL 4.20-5.40 789-8) [facility] hemoglobin measurement (mass/volume)2022-02-16 14:16:00 Test Item Value Reference Range Interpretation Comments Hemoglobin (test code = 718-7) 13.4 g/dL 12.0-16.0 [facility] Center[facility] erythrocyte mean corpuscular volume 2022-02-16 14:16:00 Test Item Value Reference Range Interpretation Comments Mean Corpuscular Volume (test code = 96.3 fL 78.0-98.0 787-2) [facility] mean corpuscular hemoglobin (mass per erythrocyte)2022-02-16 14:16:00 Test Item Value Reference Range Interpretation Comments Mean Corpuscular Hemoglobin (test 33.3 pg 27.0-31.0 code = 785-6) [facility] erythrocyte mean corpuscular hemoglobin concentration measurement (mass/[id number] 14:16:00 Test Item Value Reference Range Interpretation Comments Mean Corpuscular Hemoglobin Concent 34.6 g/dL 32.0-36.0 (test code = 786-4) [facility] distribution width ratio 2022-02-16 14:16:00 Test Item Value Reference Range Interpretation Comments Red Cell Distribution Width (test code 12.7 % 11.5-14.5 = 788-0) [facility] blood platelet count (count/volume) 2022-02-16 14:16:00 Test Item Value Reference Range Interpretation Comments Platelet Count (test code = 177 thou/uL 130-400 777-3) [facility] blood platelet mean [id number] 14:16:00 Test Item Value Reference Range Interpretation Comments Mean Platelet Volume (test code = 8.2 fL 7.4-10.4 14819-6) [facility] blood neutrophils/100 chhateaqre3536-93-14 14:16:00 Test Item Value Reference Range Interpretation Comments Neutrophils % (test code = 770-8) 66.2 % 42.0-75.0 [facility] leukocytes in Blood by Automated count 2022-02-16 14:16:00 Test Item Value Reference Range Interpretation Comments Lymphocytes % (test code = 736-9) 28.0 % 21.0-51.0 [facility] blood monocytes/100 [id number] 14:16:00 Test Item Value Reference Range Interpretation Comments Monocytes % (test code = 5905-5) 4.9 % 0.0-10.0 [facility]/100 urqnqvhson5664-88-01 14:16:00 Test Item Value Reference Range Interpretation Comments Eosinophils % (test code = 713-8) 0.4 % 0.0-10.0 [facility] basophils/100 [id number] 14:16:00 Test Item Value Reference Range Interpretation Comments Basophils % (test code = 706-2) 0.6 % 0.0-1.0 [facility] neutrophils automated count (number/volume) 2022-02-16 14:16:00 Test Item Value Reference Range Interpretation Comments Neutrophils # (test code = 751-8) 4.1 thou/uL 1.40-6.50 [facility] CenterL[facility] [#/volume] in Blood by Automated count 2022-02-16 14:16:00 Test Item Value Reference Range Interpretation Comments Lymphocytes # (test code = 731-0) 1.7 thou/uL 1.20-3.40 [facility] monocytes automated count (number/volume) 2022-02-16 14:16:00 Test Item Value Reference Range Interpretation Comments Monocytes # (test code = 742-7) 0.3 thou/uL 0.11-0.59 [facility] eosinophils automated count (count/volume) 2022-02-16 14:16:00 Test Item Value Reference Range Interpretation Comments Eosinophils # (test code = 711-2) 0.0 thou/uL 0.0-0.7 [facility] basophil count (count/volume) 2022-02-16 14:16:00 Test Item Value Reference Range Interpretation Comments Basophils # (test code = 704-7) 0.0 thou/uL 0.0-0.2 [facility] CenterChemistry20[facility] 18:47:00 Test Item Value Reference Range Interpretation Comments Chemistry (test code 139 mmol/L 136-145 N = NA-T) Chemistry (test code 3.4 mmol/L 3.5-5.1 L = K-T) Chemistry (test code 108 mmol/L 98-107 H = CL) Chemistry (test code 23 mmol/L 22-29 N = CO2) Chemistry (test code 11 mmol/L 10-20 N = ANGP) Chemistry (test code 8 mg/dL 9.8-20.1 L = BUN) Chemistry (test code 0.76 mg/dL 0.6-1.1 N = CREATT) Chemistry (test code 78 Referen ce Range for = EGFRMDRD) Estimated GFR: Greater than 90 mL/min/ 1.73 m2NOTE:The MDRD equation has no t been validated for u se with theelderly (ove r 70 years of age), women, patients with serious comorbi d condition or pe rsons with extremes o fbody size, muscle ma ss, or nutritional sta tus. Chemistry (test code 86 mg/dL 70-105 N = GLU-T) Chemistry (test code 8.5 mg/dL 7.8-10.44 N = CA) Chemistry (test code 0.5 mg/dL 0.2-1.2 N = TBILI-T) Chemistry (test code 5.8 g/dL 6.0-8.3 L = TP) Chemistry (test code 3.8 g/dL 3.5-5.0 N = ALB) Chemistry (test code 2.0 g/dL 2.4-3.5 L = GLOB) Chemistry (test code 1.9 g/dL 1.2-2.2 N = AG) Chemistry (test code 62 U/L 40-110 N = ALP) Chemistry (test code 15 U/L 5-34 N = AST) Chemistry (test code 7 U/L 8-55 L = ALT) [id number] 18:47:00 Test Item Value Reference Range Interpretation Comments Chemistry (test code = CK) 50 U/L 29-168 N Ymrbjyagi4512-61-52 18:47:00 Test Item Value Reference Range Interpretation Comments Chemistry (test code = LIP) 77 U/L 8-78 N Gabevuqiq1482-01-86 18:47:00 Test Item Value Reference Range Interpretation Comments Chemistry (test code = MG-T) 2.0 mg/dL 1.6-2.6 N Rvzziswlo2319-27-64 18:46:00 Test Item Value Reference Range Interpretation Comments Chemistry (test Less than < 0.028 code = TROPI-R) 0.010 ng/mL Reference Ra nge 0.00 - 0.028 ng /mL Negative 0.029 - 0.29 ng/mL Indetermi flaquita Greater or Equa l to 0.3 ng/mL Stron gly suggests [place] [id number] 18:23:00 Test Item Value Reference Range Interpretation Comments Hematology (test code = WBCT) 4.7 thou/uL 4.8-10.8 L Hematology (test code = RBCT) 3.79 mill/uL 4.20-5.40 L Hematology (test code = HGBT) 12.5 g/dL 12.0-16.0 N Hematology (test code = HCTT) 37.2 % 36.0-47.0 N Hematology (test code = MCV) 98.2 fL 78.0-98.0 H Hematology (test code = MCH) 33.1 pg 27.0-31.0 H Hematology (test code = MCHC) 33.7 g/dL 32.0-36.0 N Hematology (test code = RDW) 11.7 % 11.5-14.5 N Hematology (test code = PLTT) 170 thou/uL 130-400 N Hematology (test code = MPV) 8.6 fL 7.4-10.4 N Hematology (test code = %NEUT) 55.9 % 42.0-75.0 N Hematology (test code = %LYMPH) 37.6 % 21.0-51.0 N Hematology (test code = %MONO) 5.5 % 0.0-10.0 N Hematology (test code = %EOS) 0.6 % 0.0-10.0 N Hematology (test code = %BASO) 0.4 % 0.0-1.0 N Hematology (test code = NEUT#) 2.6 thou/uL 1.40-6.50 N Hematology (test code = LYMPH#) 1.8 thou/uL 1.20-3.40 N Hematology (test code = MONO#) 0.3 thou/uL 0.11-0.59 N Hematology (test code = EOS#) 0.0 thou/uL 0.0-0.7 N Hematology (test code = BASO#) 0.0 thou/uL 0.0-0.2 N [id number] 18:05:00 Test Item Value Reference Range Interpretation Comments Urinalysis (test code = Colorless Yellow UACLR) Urinalysis (test code = Clear Clear UACLY) Urinalysis (test code = SPGR) 1.003 1.002-1.036 N Urinalysis (test code = NAYELI) 6.5 5.0-9.0 N Urinalysis (test code = Negative Trista/uL Negative UALEU) Urinalysis (test code = Negative Negative UANIT) Urinalysis (test code = Negative mg/dL Neg-Trace PROUADIP) Urinalysis (test code = Normal mg/dL Negative GLUCU) Urinalysis (test code = KETU) Negative mg/dL Negative Urinalysis (test code = Normal mg/dL Less than 2 UAUROB) Urinalysis (test code = Negative Negative UABIL) Urinalysis (test code = Negative Negative UABLD) Urine Source: Urine VoidedSerum or plasma sodium measurement (moles/volume) 2021-10-31 18:03:00 Test Item Value Reference Range Interpretation Comments Sodium Level (test code = 2951-2) 139 mmol/L 136-[address] [facility])Serum or plasma potassium measurement (moles/volume)2021-10-31 18:03:00 Test Item Value Reference Range Interpretation Comments Potassium Level (test code = 3.4 mmol/L 3.5-5.1 2823-3) [facility])Serum or plasma chloride measurement (moles/volume)2021-10-31 18:03:00 Test Item Value Reference Range Interpretation Comments Chloride Level (test code = 108 mmol/L 98-107 2075-0) [facility])Serum or plasma carbon dioxide, total measurement (moles/volume)2021-10-31 18:03:00 Test Item Value Reference Range Interpretation Comments Carbon Dioxide Level (test code = 23 mmol/L -2027-9) [facility])Serum or plasma anion [id number] 18:03:00 Test Item Value Reference Range Interpretation Comments Anion Gap (test code = 60593-1) 11 mmol/L 10-[address] [facility])Serum or plasma urea nitrogen measurement (mass/volume)2021-10-31 18:03:00 Test Item Value Reference Range Interpretation Comments Blood Urea Nitrogen (test code = 8 mg/dL 9.8-20.1 3094-0) [facility])Serum or plasma creatinine measurement (mass/volume)2021-10-31 18:03:00 Test Item Value Reference Range Interpretation Comments Creatinine (test code = 2160-0) 0.76 mg/dL 0.6-1.[address] [facility])Glucose [Mass/volume] in Serum or Plasma 2021-10-31 18:03:00 Test Item Value Reference Range Interpretation Comments Glucose Level (test code = 2345-7) 86 mg/dL 70-[address] [facility])Serum or plasma calcium measurement (mass/volume)2021-10-31 18:03:00 Test Item Value Reference Range Interpretation Comments Calcium Level (test code = 52173-1) 8.5 mg/dL 7.8-10.[address] [facility])Serum or plasma total bilirubin measurement (mass/volume)2021-10-31 18:03:00 Test Item Value Reference Range Interpretation Comments Total Bilirubin (test code = 0.5 mg/dL 0.2-1.2 1975-2) [facility]Serum or plasma protein measurement (mass/volume)2021-10-31 18:03:00 Test Item Value Reference Range Interpretation Comments Serum Total Protein (test code = 5.8 g/dL 6.0-8.3 2885-2) [facility])Serum or plasma albumin measurement by bromocresol green (BCG) dye binding method ([id number] 18:03:00 Test Item Value Reference Range Interpretation Comments Albumin (test code = 99807-1) 3.8 g/dL 3.5-5.[address] [facility])Globulin [Mass/volume] in Serum by calculation 2021-10-31 18:03:00 Test Item Value Reference Range Interpretation Comments Globulin (test code = 48912-8) 2.0 g/dL 2.4-3.[address] [facility])Albumin/Globulin [Mass Ratio] in Serum or [id number] 18:03:00 Test Item Value Reference Range Interpretation Comments Albumin/Globulin Ratio (test code = 1.9 g/dL 1.2-2.2 1759-0) [facility])Alkaline phosphatase [Enzymatic activity/volume] in Serum or Gtyzdv6591-11-30 18:03:00 Test Item Value Reference Range Interpretation Comments Alkaline Phosphatase (test code = 62 U/L 40-110 6768-6) [facility])Serum or plasma aspartate aminotransferase measurement (enzymatic activity/volume)2021-10-31 18:03:00 Test Item Value Reference Range Interpretation Comments Aspartate Amino Transf (AST/SGOT) 15 U/L 5-34 (test code = 1920-8) [facility])Creatine kinase [Enzymatic activity/volume] in Serum or [id number] 18:03:00 Test Item Value Reference Range Interpretation Comments Creatine Kinase (test code = 2157-6) 50 U/L 29-[address] [facility])Serum or plasma alanine aminotransferase measurement without P-5'-P (enzymatic [id number] 18:03:00 Test Item Value Reference Range Interpretation Comments Alanine Aminotransferase (ALT/SGPT) 7 U/L 8-55 (test code = 1744-2) [facility])Serum or plasma lipase measurement (enzymatic activity/volume)2021-10-31 18:03:00 Test Item Value Reference Range Interpretation Comments Lipase (test code = 3040-3) 77 U/L 8-[address] [facility])Serum or plasma magnesium measurement (mass/volume)2021-10-31 18:03:00 Test Item Value Reference Range Interpretation Comments Magnesium Level (test code = 2.0 mg/dL 1.6-2.6 68094-0) [facility])Leukocytes [#/volume] in Blood by Automated [id number] 18:03:00 Test Item Value Reference Range Interpretation Comments White Blood Count (test code = 4.7 thou/uL 4.8-10.8 6690-2) [facility])Blood erythrocytes automated count (number/volume)2021-10-31 18:03:00 Test Item Value Reference Range Interpretation Comments Red Blood Count (test code = 3.79 mill/uL 4.20-5.40 789-8) [facility]Blood hemoglobin measurement (mass/volume) 2021-10-31 18:03:00 Test Item Value Reference Range Interpretation Comments Hemoglobin (test code = 718-7) 12.5 g/dL 12.0-16.[address] [facility])Automated erythrocyte mean corpuscular volume 2021-10-31 18:03:00 Test Item Value Reference Range Interpretation Comments Mean Corpuscular Volume (test code = 98.2 fL 78.0-98.0 787-2) [facility])Automated erythrocyte mean corpuscular hemoglobin (mass per erythrocyte)2021-10-31 18:03:00 Test Item Value Reference Range Interpretation Comments Mean Corpuscular Hemoglobin (test 33.1 pg 27.0-31.0 code = 785-6) [facility]Automated erythrocyte mean corpuscular hemoglobin concentration measurement (mass/niv8877-01-32 18:03:00 Test Item Value Reference Range Interpretation Comments Mean Corpuscular Hemoglobin Concent 33.7 g/dL 32.0-36.0 (test code = 786-4) [facility]Automated erythrocyte distribution width ratio 2021-10-31 18:03:00 Test Item Value Reference Range Interpretation Comments Red Cell Distribution Width (test code 11.7 % 11.5-14.5 = 788-0) [facility]Automated blood platelet count (count/volume) 2021-10-31 18:03:00 Test Item Value Reference Range Interpretation Comments Platelet Count (test code = 170 thou/uL 130-400 777-3) [facility])Automated blood platelet mean nckndm6328-03-08 18:03:00 Test Item Value Reference Range Interpretation Comments Mean Platelet Volume (test code = 8.6 fL 7.4-10.4 57318-1) [facility])Automated blood neutrophils/100 leukocytes 2021-10-31 18:03:00 Test Item Value Reference Range Interpretation Comments Neutrophils % (test code = 770-8) 55.9 % 42.0-75.[address] [facility])Lymphocytes/100 leukocytes in Blood by Automated [id number] 18:03:00 Test Item Value Reference Range Interpretation Comments Lymphocytes % (test code = 736-9) 37.6 % 21.0-51.[address] [facility])Automated blood monocytes/100 leukocytes 2021-10-31 18:03:00 Test Item Value Reference Range Interpretation Comments Monocytes % (test code = 5905-5) 5.5 % 0.0-10.[address] [facility])Automated blood eosinophils/100 leukocytes 2021-10-31 18:03:00 Test Item Value Reference Range Interpretation Comments Eosinophils % (test code = 713-8) 0.6 % 0.0-10.[address] [facility])Automated blood basophils/100 leukocytes 2021-10-31 18:03:00 Test Item Value Reference Range Interpretation Comments Basophils % (test code = 706-2) 0.4 % 0.0-1.[address] [facility])Blood neutrophils automated count (number/volume)2021-10-31 18:03:00 Test Item Value Reference Range Interpretation Comments Neutrophils # (test code = 751-8) 2.6 thou/uL 1.40-6.50 [facility]Lymphocytes [#/volume] in Blood by Automated wctnx3545-04-02 18:03:00 Test Item Value Reference Range Interpretation Comments Lymphocytes # (test code = 731-0) 1.8 thou/uL 1.20-3.40 [facility]Blood monocytes automated count (number/volume)2021-10-31 18:03:00 Test Item Value Reference Range Interpretation Comments Monocytes # (test code = 742-7) 0.3 thou/uL 0.11-0.[address] [facility])Blood eosinophils automated count (count/volume)2021-10-31 18:03:00 Test Item Value Reference Range Interpretation Comments Eosinophils # (test code = 711-2) 0.0 thou/uL 0.0-0.[address] [facility])Automated blood basophil count (count/volume) 2021-10-31 18:03:00 Test Item Value Reference Range Interpretation Comments Basophils # (test code = 704-7) 0.0 thou/uL 0.0-0.[address] [facility])Urine clarity by refractometry automated 2021-10-31 17:17:00 Test Item Value Reference Range Interpretation Comments Urine Clarity (test code = 69361-4) Clear Clear [facility])Specific gravity of Urine by Test strip 2021-10-31 17:17:00 Test Item Value Reference Range Interpretation Comments Urine Specific [place] (test code = 1.003 1.002-1.036 5811-5) [facility])Urine pH measurement by automated test strip 2021-10-31 17:17:00 Test Item Value Reference Range Interpretation Comments Urine pH (test code = 37365-2) 6.5 5.0-9.[address] [facility])Urine leukocyte esterase detection by automated test [id number] 17:17:00 Test Item Value Reference Range Interpretation Comments Urine Leukocyte Esterase Negative Trista/uL Negative (test code = 94115-7) [facility])Nitrite [Presence] in Urine by Test strip 2021-10-31 17:17:00 Test Item Value Reference Range Interpretation Comments Urine Nitrite (test code = 5802-4) Negative Negative [facility])Urine protein measurement by automated test strip (mass/volume)2021-10-31 17:17:00 Test Item Value Reference Range Interpretation Comments Urine Protein (test code = Negative mg/dL Neg-Trace 31090-2) [facility])Glucose [Moles/volume] in Urine by Test strip 2021-10-31 17:17:00 Test Item Value Reference Range Interpretation Comments Urine Glucose (UA) (test code = Normal mg/dL Negative 78477-5) [facility])Urine ketones measurement by automated test strip (mass/volume)2021-10-31 17:17:00 Test Item Value Reference Range Interpretation Comments Urine Ketones (test code = Negative mg/dL Negative 08641-8) [facility])Urine urobilinogen measurement (units/volume) by test [id number] 17:17:00 Test Item Value Reference Range Interpretation Comments Urine Urobilinogen (test code = Normal mg/dL Less than 2 34588-9) [facility] [facility])Urine total bilirubin detection by automated test [id number] 17:17:00 Test Item Value Reference Range Interpretation Comments Urine Bilirubin (test code = Negative Negative 60250-0) [facility])Urine hemoglobin detection by automated test [id number] 17:17:00 Test Item Value Reference Range Interpretation Comments Urine Blood (test code = 37295-0) Negative Negative [facility])Color of Urine by [id number] 17:17:00 Test Item Value Reference Range Interpretation Comments Urine Color (test code = 23642-8) Colorless Yellow [facility])Culture, [id number] 17:07:00 Test Item Value Reference Range Interpretation Comments Culture, Urine (test code = URC) NF Culture, Urine (test code = URC1) 25 MSF [id number] 19:26:00 Test Item Value Reference Range Interpretation Comments Urinalysis (test code = UACLR) Yellow Yellow Urinalysis (test code = UACLY) Clear Clear Urinalysis (test code = SPGR) 1.025 1.005-1.030 N Urinalysis (test code = NAYELI) 5.5 5.0-9.0 N Urinalysis (test code = UALEU) Negative Negative Urinalysis (test code = UANIT) Negative Negative Urinalysis (test code = Negative mg/dL Neg-Trace PROUADIP) Urinalysis (test code = GLUCU) Negative mg/dL Negative Urinalysis (test code = KETU) Negative mg/dL Negative Urinalysis (test code = 0.2 mg/dL Less than 2 UAUROB) Urinalysis (test code = UABIL) Negative Negative Urinalysis (test code = UABLD) Trace Negative A Urine Source: Urine Clean [id number] 19:26:00 Test Item Value Reference Range Interpretation Comments Urinalysis (test code = 0-3 HPF 0-3 UARBC) Urinalysis (test code = 0-3 HPF 0-3 UAWBC) Urinalysis (test code = 0-3 HPF 0-3 UASQUAM) Urinalysis (test code = 1+ HPF None Seen A UABAC) Urinalysis (test code = 1+ LPF See_Comment [Au tomated message] [facility]) The system M-Files generated this result transmitted ref erence range: <2+. The reference range was not used to interpr et this result as normal/abnormal . Urine Source: Urine Clean [id number] 19:26:00 Test Item Value Reference Range Interpretation Comments Chemistry (test code 138 mmol/L 136-145 N = NA-T) Chemistry (test code 4.3 mmol/L 3.5-5.1 N = K-T) Chemistry (test code 104 mmol/L 98-107 N = CL) Chemistry (test code 25 mmol/L 22-29 N = CO2) Chemistry (test code 13 mmol/L 10-20 N = ANGP) Chemistry (test code 13 mg/dL 9.8-20.1 N = BUN) Chemistry (test code 0.83 mg/dL 0.6-1.1 N = CREATT) Chemistry (test code 71 Referen ce Range for = EGFRMDRD) Estimated GFR: Greater than 90 mL/min/ 1.73 m2NOTE:The MDRD equation has no t been validated for u se with theelderly (ove r 70 years of age), women, patients with serious comorbi d condition or pe rsons with extremes o fbody size, muscle ma ss, or nutritional sta tus. Chemistry (test code 79 mg/dL 70-105 N = GLU-T) Chemistry (test code 8.7 mg/dL 7.8-10.44 N = CA) Chemistry (test code 0.3 mg/dL 0.2-1.2 N = TBILI-T) Chemistry (test code 6.5 g/dL 6.0-8.3 N = TP) Chemistry (test code 4.1 g/dL 3.5-5.0 N = ALB) Chemistry (test code 2.4 g/dL 2.4-3.5 N = GLOB) Chemistry (test code 1.7 g/dL 1.2-2.2 N = AG) Chemistry (test code 68 U/L 40-110 N = ALP) Chemistry (test code 19 U/L 5-34 N = AST) Chemistry (test code 15 U/L 8-55 N = ALT) [id number] 19:26:00 Test Item Value Reference Range Interpretation Comments Chemistry (test code = LIP) 57 U/L 8-78 N [id number] 19:24:00 Test Item Value Reference Range Interpretation Comments Hematology (test code = WBCT) 9.5 thou/uL 4.8-10.8 N Hematology (test code = RBCT) 4.24 mill/uL 4.20-5.40 N Hematology (test code = HGBT) 13.7 g/dL 12.0-16.0 N Hematology (test code = HCTT) 42.3 % 36.0-47.0 N Hematology (test code = MCV) 99.6 fL 78.0-98.0 H Hematology (test code = MCH) 32.3 pg 27.0-31.0 H Hematology (test code = MCHC) 32.4 g/dL 32.0-36.0 N Hematology (test code = RDW) 12.9 % 11.5-14.5 N Hematology (test code = PLTT) 169 thou/uL 130-400 N Hematology (test code = MPV) 9.7 fL 7.4-10.4 N Hematology (test code = %NEUT) 64.5 % 42.0-75.0 N Hematology (test code = %LYMPH) 30.3 % 21.0-51.0 N Hematology (test code = %MONO) 4.0 % 0.0-10.0 N Hematology (test code = %EOS) 0.4 % 0.0-10.0 N Hematology (test code = %BASO) 0.8 % 0.0-1.0 N Hematology (test code = NEUT#) 6.1 thou/uL 1.40-6.50 N Hematology (test code = LYMPH#) 2.9 thou/uL 1.20-3.40 N Hematology (test code = MONO#) 0.4 thou/uL 0.11-0.59 N Hematology (test code = EOS#) 0.0 thou/uL 0.0-0.7 N Hematology (test code = BASO#) 0.1 thou/uL 0.0-0.2 N Occult Blood, Stool [id number] 18:59:00 Test Item Value Reference Range Interpretation Comments Occult Blood, Stool DIAGNOSTIC (test IFOB A code = OCCSTD) Occult Blood, Stool DIAGNOSTIC (test P A code = OCCSTD1) [id number] 19:09:00 Test Item Value Reference Range Interpretation Comments Urinalysis (test Yellow Yellow code = UACLR) Urinalysis (test Clear Clear code = UACLY) Urinalysis (test 1.025 1.005-1.030 N code = SPGR) Urinalysis (test 5.5 5.0-9.0 N code = NAYELI) Urinalysis (test Negative Negative code = UALEU) Urinalysis (test Negative Negative code = UANIT) Urinalysis (test Negative mg/dL Neg-Trace code = PROUADIP) Urinalysis (test Negative mg/dL Negative code = GLUCU) Urinalysis (test 40 mg/dL Negative A code = KETU) Urinalysis (test 0.2 mg/dL Less than 2 code = UAUROB) Urinalysis (test Small Negative A code = UABIL) CAUTION *Urine Bilirubin has a high incidence of fa lse positiveresults due to urine color interference.In terpret results in conj unction with other clinicalfinding s. Urinalysis (test Negative Negative code = UABLD) Urine Source: Urine VoidedChemistry - [id number] 17:54:00 Test Item Value Reference Range Interpretation Comments Chemistry - Lactate (test code = 1.1 mmol/L 0.5-2.2 N LACTSEP-T) [id number] 17:29:00 Test Item Value Reference Range Interpretation Comments Chemistry (test code 140 mmol/L 136-145 N = NA-T) Chemistry (test code 4.0 mmol/L 3.5-5.1 N = K-T) Chemistry (test code 105 mmol/L 98-107 N = CL) Chemistry (test code 22 mmol/L 22-29 N = CO2) Chemistry (test code 17 mmol/L 10-20 N = ANGP) Chemistry (test code 11 mg/dL 9.8-20.1 N = BUN) Chemistry (test code 0.85 mg/dL 0.6-1.1 N = CREATT) Chemistry (test code 69 Referen ce Range for = EGFRMDRD) Estimated GFR: Greater than 90 mL/min/ 1.73 m2NOTE:The MDRD equation has no t been validated for u se with theelderly (ove r 70 years of age), women, patients with serious comorbi d condition or pe rsons with extremes o fbody size, muscle ma ss, or nutritional sta tus. Chemistry (test code 90 mg/dL 70-105 N = GLU-T) Chemistry (test code 9.3 mg/dL 7.8-10.44 N = CA) Chemistry (test code 0.6 mg/dL 0.2-1.2 N = TBILI-T) Chemistry (test code 7.0 g/dL 6.0-8.3 N = TP) Chemistry (test code 4.6 g/dL 3.5-5.0 N = ALB) Chemistry (test code 2.4 g/dL 2.4-3.5 N = GLOB) Chemistry (test code 1.9 g/dL 1.2-2.2 N = AG) Chemistry (test code 70 U/L 40-110 N = ALP) Chemistry (test code 15 U/L 5-34 N = AST) Chemistry (test code 12 U/L 8-55 N = ALT) [id number] 17:29:00 Test Item Value Reference Range Interpretation Comments Chemistry (test code = LIP) 17 U/L 8-78 N [id number] 17:17:00 Test Item Value Reference Range Interpretation Comments Hematology (test code = WBCT) 5.4 thou/uL 4.8-10.8 N Hematology (test code = RBCT) 4.35 mill/uL 4.20-5.40 N Hematology (test code = HGBT) 13.6 g/dL 12.0-16.0 N Hematology (test code = HCTT) 41.8 % 36.0-47.0 N Hematology (test code = MCV) 96.0 fL 78.0-98.0 N Hematology (test code = MCH) 31.2 pg 27.0-31.0 H Hematology (test code = MCHC) 32.5 g/dL 32.0-36.0 N Hematology (test code = RDW) 13.7 % 11.5-14.5 N Hematology (test code = PLTT) 216 thou/uL 130-400 N Hematology (test code = MPV) 9.5 fL 7.4-10.4 N Hematology (test code = %NEUT) 47.0 % 42.0-75.0 N Hematology (test code = %LYMPH) 46.3 % 21.0-51.0 N Hematology (test code = %MONO) 5.7 % 0.0-10.0 N Hematology (test code = %EOS) 0.2 % 0.0-10.0 N Hematology (test code = %BASO) 0.9 % 0.0-1.0 N Hematology (test code = NEUT#) 2.6 thou/uL 1.40-6.50 N Hematology (test code = LYMPH#) 2.5 thou/uL 1.20-3.40 N Hematology (test code = MONO#) 0.3 thou/uL 0.11-0.59 N Hematology (test code = EOS#) 0.0 thou/uL 0.0-0.7 N Hematology (test code = BASO#) 0.0 thou/uL 0.0-0.2 N [id number] 05:29:00 Test Item Value Reference Range Interpretation Comments Chemistry (test code 141 mmol/L 136-145 N = NA-T) Chemistry (test code 3.9 mmol/L 3.5-5.1 N = K-T) Chemistry (test code 110 mmol/L 98-107 H = CL) Chemistry (test code 26 mmol/L 22-29 N = CO2) Chemistry (test code 9 mmol/L 10-20 L = ANGP) Chemistry (test code 8 mg/dL 9.8-20.1 L = BUN) Chemistry (test code 0.76 mg/dL 0.6-1.1 N = CREATT) Chemistry (test code 78 Referen ce Range for = EGFRMDRD) Estimated GFR: Greater than 90 mL/min/ 1.73 m2NOTE:The MDRD equation has no t been validated for u se with theelderly (ove r 70 years of age), women, patients with serious comorbi d condition or pe rsons with extremes o fbody size, muscle ma ss, or nutritional sta tus. Chemistry (test code 82 mg/dL 70-105 N = GLU-T) Chemistry (test code 8.6 mg/dL 7.8-10.44 N = CA) Chemistry (test code 0.5 mg/dL 0.2-1.2 N = TBILI-T) Chemistry (test code 5.6 g/dL 6.0-8.3 L = TP) Chemistry (test code 3.7 g/dL 3.5-5.0 N = ALB) Chemistry (test code 1.9 g/dL 2.4-3.5 L = GLOB) Chemistry (test code 1.9 g/dL 1.2-2.2 N = AG) Chemistry (test code 53 U/L 40-150 N = ALP) Chemistry (test code 26 U/L 5-34 N = AST) Chemistry (test code 15 U/L 8-55 N = ALT) [id number] 05:10:00 Test Item Value Reference Range Interpretation Comments Hematology (test code = WBCT) 4.2 thou/uL 4.8-10.8 L Hematology (test code = RBCT) 3.75 mill/uL 4.20-5.40 L Hematology (test code = HGBT) 12.0 g/dL 12.0-16.0 N Hematology (test code = HCTT) 35.4 % 36.0-47.0 L Hematology (test code = MCV) 94.3 fL 78.0-98.0 N Hematology (test code = MCH) 31.9 pg 27.0-31.0 H Hematology (test code = MCHC) 33.9 g/dL 32.0-36.0 N Hematology (test code = RDW) 12.5 % 11.5-14.5 N Hematology (test code = PLTT) 155 thou/uL 130-400 N Hematology (test code = MPV) 8.4 fL 7.4-10.4 N Hematology (test code = %NEUT) 37.7 % 42.0-75.0 L Hematology (test code = %LYMPH) 49.6 % 21.0-51.0 N Hematology (test code = %MONO) 9.3 % 0.0-10.0 N Hematology (test code = %EOS) 1.6 % 0.0-10.0 N Hematology (test code = %BASO) 1.8 % 0.0-1.0 H Hematology (test code = NEUT#) 1.6 thou/uL 1.40-6.50 N Hematology (test code = LYMPH#) 2.1 thou/uL 1.20-3.40 N Hematology (test code = MONO#) 0.4 thou/uL 0.11-0.59 N Hematology (test code = EOS#) 0.1 thou/uL 0.0-0.7 N Hematology (test code = BASO#) 0.1 thou/uL 0.0-0.2 N [id number] 22:00:00 Test Item Value Reference Range Interpretation Comments Hematology (test code = HGBT) 11.4 g/dL 12.0-16.0 L Hematology (test code = HCTT) 33.5 % 36.0-47.0 L [id number] 17:00:00 Test Item Value Reference Range Interpretation Comments Toxicology Detected NotDetected A (test code = NISHA) Toxicology Not Detected NotDetected (test code = PCP) Toxicology Not Detected NotDetected (test code = COCN) Toxicology Not Detected NotDetected (test code = METHAMPU) Toxicology Not Detected NotDetected (test code = OPIA) Toxicology Not Detected NotDetected (test code = AMPHU) Toxicology Not Detected NotDetected (test code = MAX) Toxicology Not Detected NotDetected (test code = TRICY) Toxicology Not Detected NotDetected (test code = MTD) Toxicology Not Detected NotDetected (test code = RAYSA) Toxicology Not Detected NotDetected (test code = OXYCOD) Toxicology Not Detected NotDetected (test code = PPX) Toxicology The [employer] Pro file-V Panel (test code = for Qualitative Drugs MTCUTOFF) ofAbuse assays are for presumptive scr eening testing only.Th e drug class and detec tion limits are as follows: Drug Class Detection Limit Amphetamine 500 ng/mL*Brielle turates 200 ng/mLBenzodiaze pines 150 ng/mL*Cocaine 1 50 ng/mL*Methamphe tamine 500 ng/mL*Methadone 200 ng/mL*Opiates 100 ng/mL*Oxycodone 100 ng/mLPCP 25 ng/mLPropoxyphe ne 300 ng/mLTricyclic Antidepressants 300 ng/mLCannabinoi ds (THC) 50 ng/mLTests whic h yield a presumptive pos itive result must bet ested using a more specific alternate chemical method inorder to obtain a confir med analytical resu lt. Additionalconfi rmation and identification may be ordered on a utinebasis, if desired. Pre sumptive positive urines are held fortwo weeks. Urine Source: Urine Clean CatchType [id number] 16:23:00 Test Item Value Reference Range Interpretation Comments Blood Type Rh (test code = BT) AB POSITIVE Antibody Screen (test code = NEGATIVE ABSC) Received Blood Or Been w/in Past 90 Days? UNKNOWNScheduled Surgery Date: NO SURGERYIs Surgery Date Greater than 7 days from now? NORetype Verify- Blood Type [id number] 16:22:00 Test Item Value Reference Range Interpretation Comments Blood Type Rh (test code = BT) AB POSITIVE [id number] 16:22:00 Test Item Value Reference Range Interpretation Comments Coagulation (test 12.9 SEC 12.0-14.7 N code = PT-T) Coagulation (test 1.0 ATTE NTION: READ code = INR) CAREFULLY-- The recommended the rapeutic ranges for oral anticoagulanttr eatments are: ------ Low Inte nsity: 1.5 - 2.0 Moderate In tensity: 2.0 - 3.0 High Inte nsity (1): 2.5 - 3.5 High Inte nsity (2): 3.0 - 4.0 CRITICAL: > 4.0 Anticoagulant? NONEMedical Necessity SUSPECT [id number] 15:21:00 Test Item Value Reference Range Interpretation Comments Chemistry (test code 138 mmol/L 136-145 N = NA-T) Chemistry (test code 3.7 mmol/L 3.5-5.1 N = K-T) Chemistry (test code 105 mmol/L 98-107 N = CL) Chemistry (test code 25 mmol/L 22-29 N = CO2) Chemistry (test code 12 mmol/L 10-20 N = ANGP) Chemistry (test code 9 mg/dL 9.8-20.1 L = BUN) Chemistry (test code 0.79 mg/dL 0.6-1.1 N = CREATT) Chemistry (test code 75 Referen ce Range for = EGFRMDRD) Estimated GFR: Greater than 90 mL/min/ 1.73 m2NOTE:The MDRD equation has no t been validated for u se with theelderly (ove r 70 years of age), women, patients with serious comorbi d condition or pe rsons with extremes o fbody size, muscle ma ss, or nutritional sta tus. Chemistry (test code 87 mg/dL 70-105 N = GLU-T) Chemistry (test code 9.9 mg/dL 7.8-10.44 N = CA) Chemistry (test code 0.5 mg/dL 0.2-1.2 N = TBILI-T) Chemistry (test code 7.2 g/dL 6.0-8.3 N = TP) Chemistry (test code 4.7 g/dL 3.5-5.0 N = ALB) Chemistry (test code 2.5 g/dL 2.4-3.5 N = GLOB) Chemistry (test code 1.9 g/dL 1.2-2.2 N = AG) Chemistry (test code 64 U/L 40-150 N = ALP) Chemistry (test code 23 U/L 5-34 N = AST) Chemistry (test code 17 U/L 8-55 N = ALT) Chemistry - [id number] 15:08:00 Test Item Value Reference Range Interpretation Comments Chemistry - Lactate (test code = 1.1 mmol/L 0.5-2.2 N LACTSEP-T) [id number] 14:51:00 Test Item Value Reference Range Interpretation Comments Hematology (test code = WBCT) 4.8 thou/uL 4.8-10.8 N Hematology (test code = RBCT) 4.30 mill/uL 4.20-5.40 N Hematology (test code = HGBT) 14.0 g/dL 12.0-16.0 N Hematology (test code = HCTT) 39.9 % 36.0-47.0 N Hematology (test code = MCV) 92.9 fL 78.0-98.0 N Hematology (test code = MCH) 32.5 pg 27.0-31.0 H Hematology (test code = MCHC) 34.9 g/dL 32.0-36.0 N Hematology (test code = RDW) 12.4 % 11.5-14.5 N Hematology (test code = PLTT) 185 thou/uL 130-400 N Hematology (test code = MPV) 8.5 fL 7.4-10.4 N Hematology (test code = %NEUT) 50.1 % 42.0-75.0 N Hematology (test code = %LYMPH) 40.6 % 21.0-51.0 N Hematology (test code = %MONO) 8.6 % 0.0-10.0 N Hematology (test code = %EOS) 0.5 % 0.0-10.0 N Hematology (test code = %BASO) 0.3 % 0.0-1.0 N Hematology (test code = NEUT#) 2.4 thou/uL 1.40-6.50 N Hematology (test code = LYMPH#) 1.9 thou/uL 1.20-3.40 N Hematology (test code = MONO#) 0.4 thou/uL 0.11-0.59 N Hematology (test code = EOS#) 0.0 thou/uL 0.0-0.7 N Hematology (test code = BASO#) 0.0 thou/uL 0.0-0.2 N Occult Blood, Stool [id number] 14:39:00 Test Item Value Reference Range Interpretation Comments Occult Blood, Stool DIAGNOSTIC (test IFOB code = OCCSTD) Occult Blood, Stool DIAGNOSTIC (test N code = OCCSTD1) [id number] 14:02:00 Test Item Value Reference Range Interpretation Comments Urinalysis (test code = Colorless Yellow UACLR) Urinalysis (test code = Clear Clear UACLY) Urinalysis (test code = SPGR) 1.004 1.002-1.036 N Urinalysis (test code = NAYELI) 7.5 5.0-9.0 N Urinalysis (test code = Negative Trista/uL Negative UALEU) Urinalysis (test code = Negative Negative UANIT) Urinalysis (test code = Negative mg/dL Neg-Trace PROUADIP) Urinalysis (test code = Normal mg/dL Negative GLUCU) Urinalysis (test code = KETU) Negative mg/dL Negative Urinalysis (test code = Normal mg/dL Less than 2 UAUROB) Urinalysis (test code = Negative Negative UABIL) Urinalysis (test code = Negative Negative UABLD) Urine Source: Urine [id number] 16:34:00 Test Item Value Reference Range Interpretation Comments Urinalysis (test code = UACLR) Yellow Yellow Urinalysis (test code = UACLY) Clear Clear Urinalysis (test code = SPGR) 1.015 1.005-1.030 N Urinalysis (test code = NAYELI) 8.0 5.0-9.0 N Urinalysis (test code = UALEU) Negative Negative Urinalysis (test code = UANIT) Negative Negative Urinalysis (test code = Negative mg/dL Neg-Trace PROUADIP) Urinalysis (test code = GLUCU) Negative mg/dL Negative Urinalysis (test code = KETU) 40 mg/dL Negative A Urinalysis (test code = 0.2 mg/dL Less than 2 UAUROB) Urinalysis (test code = UABIL) Negative Negative Urinalysis (test code = UABLD) Trace Negative A Urinalysis (test code = UARBC) 0-3 HPF 0-3 Urinalysis (test code = UAWBC) None Seen HPF 0-3 Urinalysis (test code = None Seen HPF 0-3 UASQUAM) Urinalysis (test code = UABAC) None Seen HPF None Seen Urine Source: Urine [id number] 16:17:00 Test Item Value Reference Range Interpretation Comments Chemistry (test Less than < 0.028 code = TROPI-R) 0.010 ng/mL Reference Ra nge 0.00 - 0.028 ng /mL Negative 0.029 - 0.29 ng/mL Indetermi flaquita Greater or Equa l to 0.3 ng/mL Stron gly suggests [place] [id number] 16:14:00 Test Item Value Reference Range Interpretation Comments Chemistry (test code 134 mmol/L 136-145 L = NA-T) Chemistry (test code 3.9 mmol/L 3.5-5.1 N = K-T) Chemistry (test code 100 mmol/L 98-107 N = CL) Chemistry (test code 25 mmol/L 22-29 N = CO2) Chemistry (test code 13 mmol/L 10-20 N = ANGP) Chemistry (test code 10 mg/dL 9.8-20.1 N = BUN) Chemistry (test code 0.77 mg/dL 0.6-1.1 N = CREATT) Chemistry (test code 77 Referen ce Range for = EGFRMDRD) Estimated GFR: Greater than 90 mL/min/ 1.73 m2NOTE:The MDRD equation has no t been validated for u se with theelderly (ove r 70 years of age), women, patients with serious comorbi d condition or pe rsons with extremes o fbody size, muscle ma ss, or nutritional sta tus. Chemistry (test code 98 mg/dL 70-105 N = GLU-T) Chemistry (test code 9.0 mg/dL 7.8-10.44 N = CA) Chemistry (test code 0.4 mg/dL 0.2-1.2 N = TBILI-T) Chemistry (test code 6.1 g/dL 6.0-8.3 N = TP) Chemistry (test code 4.0 g/dL 3.5-5.0 N = ALB) Chemistry (test code 2.1 g/dL 2.4-3.5 L = GLOB) Chemistry (test code 1.9 g/dL 1.2-2.2 N = AG) Chemistry (test code 57 U/L 40-150 N = ALP) Chemistry (test code 23 U/L 5-34 N = AST) Chemistry (test code 21 U/L 8-55 N = ALT) [id number] 16:14:00 Test Item Value Reference Range Interpretation Comments Chemistry (test code = LIP) 19 U/L 8-78 N [id number] 15:57:00 Test Item Value Reference Range Interpretation Comments Hematology (test code = WBCT) 6.5 thou/uL 4.8-10.8 N Hematology (test code = RBCT) 3.82 mill/uL 4.20-5.40 L Hematology (test code = HGBT) 12.6 g/dL 12.0-16.0 N Hematology (test code = HCTT) 35.6 % 36.0-47.0 L Hematology (test code = MCV) 93.3 fL 78.0-98.0 N Hematology (test code = MCH) 33.0 pg 27.0-31.0 H Hematology (test code = MCHC) 35.3 g/dL 32.0-36.0 N Hematology (test code = RDW) 12.3 % 11.5-14.5 N Hematology (test code = PLTT) 194 thou/uL 130-400 N Hematology (test code = MPV) 7.9 fL 7.4-10.4 N Hematology (test code = %NEUT) 65.7 % 42.0-75.0 N Hematology (test code = %LYMPH) 26.8 % 21.0-51.0 N Hematology (test code = %MONO) 6.8 % 0.0-10.0 N Hematology (test code = %EOS) 0.3 % 0.0-10.0 N Hematology (test code = %BASO) 0.3 % 0.0-1.0 N Hematology (test code = NEUT#) 4.2 thou/uL 1.40-6.50 N Hematology (test code = LYMPH#) 1.7 thou/uL 1.20-3.40 N Hematology (test code = MONO#) 0.4 thou/uL 0.11-0.59 N Hematology (test code = EOS#) 0.0 thou/uL 0.0-0.7 N Hematology (test code = BASO#) 0.0 thou/uL 0.0-0.2 N [id number] 12:11:00 Test Item Value Reference Range Interpretation Comments Chemistry (test Less than < 0.028 code = TROPI-T) 0.010 ng/mL Reference Ra nge 0.00 - 0.028 ng /mL Negative 0.029 - 0.29 ng/mL Indetermi flaquita Greater or Equa l to 0.3 ng/mL Stron gly suggests [place] [id number] 08:59:00 Test Item Value Reference Range Interpretation Comments Chemistry (test code 141 mmol/L 136-145 N = NA-T) Chemistry (test code 3.3 mmol/L 3.5-5.1 L = K-T) Chemistry (test code 109 mmol/L 98-107 H = CL) Chemistry (test code 20 mmol/L 22-29 L = CO2) Chemistry (test code 15 mmol/L 10-20 N = ANGP) Chemistry (test code 5 mg/dL 9.8-20.1 L = BUN) Chemistry (test code 0.75 mg/dL 0.6-1.1 N = CREATT) Chemistry (test code 80 Referen ce Range for = EGFRMDRD) Estimated GFR: Greater than 90 mL/min/ 1.73 m2NOTE:The MDRD equation has no t been validated for u se with theelderly (ove r 70 years of age), women, patients with serious comorbi d condition or pe rsons with extremes o fbody size, muscle ma ss, or nutritional sta tus. Chemistry (test code 101 mg/dL 70-105 N = GLU-T) Chemistry (test code 9.5 mg/dL 7.8-10.44 N = CA) [id number] 08:59:00 Test Item Value Reference Range Interpretation Comments Coagulation (test 14.2 SEC 12.0-14.7 N code = PT-T) Coagulation (test 1.1 ATTE NTION: READ code = INR) CAREFULLY-- The recommended the rapeutic ranges for oral anticoagulanttr eatments are: ------ Low Inte nsity: 1.5 - 2.0 Moderate In tensity: 2.0 - 3.0 High Intens ity (1): 2.5 - 3.5 High Intens ity (2): 3.0 - 4.0 CRITICAL: > 4.0 Coagulation (test 31.7 SEC 22.9-36.1 N code = PTT) Anticoagulant? [id number] 08:54:00 Test Item Value Reference Range Interpretation Comments Hematology (test code = WBCT) 3.3 thou/uL 4.8-10.8 L Hematology (test code = RBCT) 3.77 mill/uL 4.20-5.40 L Hematology (test code = HGBT) 12.3 g/dL 12.0-16.0 N Hematology (test code = HCTT) 35.4 % 36.0-47.0 L Hematology (test code = MCV) 93.7 fL 78.0-98.0 N Hematology (test code = MCH) 32.5 pg 27.0-31.0 H Hematology (test code = MCHC) 34.7 g/dL 32.0-36.0 N Hematology (test code = RDW) 12.5 % 11.5-14.5 N Hematology (test code = PLTT) 154 thou/uL 130-400 N Hematology (test code = MPV) 8.2 fL 7.4-10.4 N Hematology (test code = %NEUT) 44.9 % 42.0-75.0 N Hematology (test code = %LYMPH) 44.0 % 21.0-51.0 N Hematology (test code = %MONO) 9.5 % 0.0-10.0 N Hematology (test code = %EOS) 1.6 % 0.0-10.0 N Hematology (test code = %BASO) 0.1 % 0.0-1.0 N Hematology (test code = NEUT#) 1.5 thou/uL 1.40-6.50 N Hematology (test code = LYMPH#) 1.4 thou/uL 1.20-3.40 N Hematology (test code = MONO#) 0.3 thou/uL 0.11-0.59 N Hematology (test code = EOS#) 0.1 thou/uL 0.0-0.7 N Hematology (test code = BASO#) 0.0 thou/uL 0.0-0.2 N [id number] 08:16:00 Test Item Value Reference Range Interpretation Comments Chemistry (test Less than < 0.028 code = TROPI-T) 0.010 ng/mL Reference Ra nge 0.00 - 0.028 ng /mL Negative 0.029 - 0.29 ng/mL Indetermi flaquita Greater or Equa l to 0.3 ng/mL Stro ngly suggests [place] [id number] 08:15:00 Test Item Value Reference Range Interpretation Comments Coagulation (test 0.27 *mcg/mL 0.27-0.43 N * Referenc e Range code = DDIMTT) Units: mcg/mL of fibrinogen equi valent units(FEU)[facility], a result of"Less than 0. 44 mcg/mL FEU" is predictive of t he absence ofa DVT or PE. Culture, [id number] 12:30:00 Test Item Value Reference Range Interpretation Comments Culture, Urine (test Low [place] Count:Gram code = URC) negative jr Culture, Urine (test clinically indicated. code = URC1) O:ESCOL (test code = Escherichia coli ESCOL) Amikacin (test code = <=2 S AN) Ampicillin (test code = >=32 R AMV) Ampicillin/Sulbactam >=32 R (test code = NICOLETTE) Cefepime (test code = >=64 R FEP) Ceftazidime (test code = 16 R CAZV) Ceftriaxone (test code = >=64 R AFTER SCHOOL COORDINATOR) Cefoxitin (test code = <=4 S CFX) Ciprofloxacin (test code >=4 R = CIP) Gentamicin (test code = <=1 S GMV) Levofloxacin (test code >=8 R = LEV) Meropenem (test code = <=0.25 S MEM) Nitrofurantoin (test <=16 S code = FT) Piperacillin/Tazobactam <=4 S (test code = TZP) Tobramycin (test code = <=1 S TM) Trimethoprim/Sulfamethox <=20 S azole (test code = SXTV) Culture, Urine (test QUANTITATION: code = URC1.1) Culture, Urine (test >100,000 cfu/mL code = URC1.1) O:GNR (test code = GNR) Gram Negative Jr Culture, Urine (test QUANTITATION: code = URC1.2) Culture, Urine (test <5,000 cfu/mL code = URC1.2) [id number] 06:25:00 Test Item Value Reference Range Interpretation Comments Chemistry (test code 138 mmol/L 136-145 N = NA-T) Chemistry (test code 3.6 mmol/L 3.5-5.1 N = K-T) Chemistry (test code 110 mmol/L 98-107 H = CL) Chemistry (test code 23 mmol/L 22-29 N = CO2) Chemistry (test code 9 mmol/L 10-20 L = ANGP) Chemistry (test code 7 mg/dL 9.8-20.1 L = BUN) Chemistry (test code 0.68 mg/dL 0.6-1.1 N = CREATT) Chemistry (test code 89 Referen ce Range for = EGFRMDRD) Estimated GFR: Greater than 90 mL/min/ 1.73 m2NOTE:The MDRD equation has no t been validated for u se with theelderly (ove r 70 years of age), women, patients with serious comorbi d condition or pe rsons with extremes o fbody size, muscle ma ss, or nutritional sta tus. Chemistry (test code 92 mg/dL 70-105 N = GLU-T) Chemistry (test code 8.8 mg/dL 7.8-10.44 N = CA) [id number] 06:01:00 Test Item Value Reference Range Interpretation Comments Hematology (test code = WBCT) 4.0 thou/uL 4.8-10.8 L Hematology (test code = RBCT) 3.75 mill/uL 4.20-5.40 L Hematology (test code = HGBT) 12.2 g/dL 12.0-16.0 N Hematology (test code = HCTT) 35.5 % 36.0-47.0 L Hematology (test code = MCV) 94.7 fL 78.0-98.0 N Hematology (test code = MCH) 32.7 pg 27.0-31.0 H Hematology (test code = MCHC) 34.5 g/dL 32.0-36.0 N Hematology (test code = RDW) 12.7 % 11.5-14.5 N Hematology (test code = PLTT) 162 thou/uL 130-400 N Hematology (test code = MPV) 8.0 fL 7.4-10.4 N Hematology (test code = %NEUT) 47.7 % 42.0-75.0 N Hematology (test code = %LYMPH) 39.9 % 21.0-51.0 N Hematology (test code = %MONO) 9.1 % 0.0-10.0 N Hematology (test code = %EOS) 2.3 % 0.0-10.0 N Hematology (test code = %BASO) 0.9 % 0.0-1.0 N Hematology (test code = NEUT#) 1.9 thou/uL 1.40-6.50 N Hematology (test code = LYMPH#) 1.6 thou/uL 1.20-3.40 N Hematology (test code = MONO#) 0.4 thou/uL 0.11-0.59 N Hematology (test code = EOS#) 0.1 thou/uL 0.0-0.7 N Hematology (test code = BASO#) 0.0 thou/uL 0.0-0.2 N [id number] 16:13:00 Test Item Value Reference Range Interpretation Comments Urinalysis (test code = Colorless Yellow UACLR) Urinalysis (test code = Clear Clear UACLY) Urinalysis (test code = SPGR) 1.053 1.002-1.036 H Urinalysis (test code = NAYELI) 7.5 5.0-9.0 N Urinalysis (test code = Negative Trista/uL Negative UALEU) Urinalysis (test code = Negative Negative UANIT) Urinalysis (test code = Negative mg/dL Neg-Trace PROUADIP) Urinalysis (test code = Normal mg/dL Negative GLUCU) Urinalysis (test code = KETU) Negative mg/dL Negative Urinalysis (test code = Normal mg/dL Less than 2 UAUROB) Urinalysis (test code = Negative Negative UABIL) Urinalysis (test code = Negative Negative UABLD) Urine Source: Urine VoidedChemistry - [id number] 15:17:00 Test Item Value Reference Range Interpretation Comments Chemistry - Lactate (test code = 0.9 mmol/L 0.5-2.2 N LACT-T) [id number] 14:49:00 Test Item Value Reference Range Interpretation Comments Chemistry (test code 138 mmol/L 136-145 N = NA-T) Chemistry (test code 3.9 mmol/L 3.5-5.1 N = K-T) Chemistry (test code 104 mmol/L 98-107 N = CL) Chemistry (test code 27 mmol/L 22-29 N = CO2) Chemistry (test code 11 mmol/L 10-20 N = ANGP) Chemistry (test code 10 mg/dL 9.8-20.1 N = BUN) Chemistry (test code 0.76 mg/dL 0.6-1.1 N = CREATT) Chemistry (test code 78 Referen ce Range for = EGFRMDRD) Estimated GFR: Greater than 90 mL/min/ 1.73 m2NOTE:The MDRD equation has no t been validated for u se with theelderly (ove r 70 years of age), women, patients with serious comorbi d condition or pe rsons with extremes o fbody size, muscle ma ss, or nutritional sta tus. Chemistry (test code 84 mg/dL 70-105 N = GLU-T) Chemistry (test code 9.8 mg/dL 7.8-10.44 N = CA) Chemistry (test code 0.4 mg/dL 0.2-1.2 N = TBILI-T) Chemistry (test code 6.9 g/dL 6.0-8.3 N = TP) Chemistry (test code 4.4 g/dL 3.5-5.0 N = ALB) Chemistry (test code 2.5 g/dL 2.4-3.5 N = GLOB) Chemistry (test code 1.8 g/dL 1.2-2.2 N = AG) Chemistry (test code 69 U/L 40-150 N = ALP) Chemistry (test code 20 U/L 5-34 N = AST) Chemistry (test code 12 U/L 8-55 N = ALT) [id number] 14:49:00 Test Item Value Reference Range Interpretation Comments Chemistry (test code = LIP) 29 U/L 8-78 N [id number] 14:30:00 Test Item Value Reference Range Interpretation Comments Hematology (test code = WBCT) 5.8 thou/uL 4.8-10.8 N Hematology (test code = RBCT) 4.16 mill/uL 4.20-5.40 L Hematology (test code = HGBT) 13.3 g/dL 12.0-16.0 N Hematology (test code = HCTT) 38.3 % 36.0-47.0 N Hematology (test code = MCV) 92.0 fL 78.0-98.0 N Hematology (test code = MCH) 32.0 pg 27.0-31.0 H Hematology (test code = MCHC) 34.7 g/dL 32.0-36.0 N Hematology (test code = RDW) 12.7 % 11.5-14.5 N Hematology (test code = PLTT) 193 thou/uL 130-400 N Hematology (test code = MPV) 8.1 fL 7.4-10.4 N Hematology (test code = %NEUT) 58.9 % 42.0-75.0 N Hematology (test code = %LYMPH) 34.3 % 21.0-51.0 N Hematology (test code = %MONO) 6.0 % 0.0-10.0 N Hematology (test code = %EOS) 0.5 % 0.0-10.0 N Hematology (test code = %BASO) 0.3 % 0.0-1.0 N Hematology (test code = NEUT#) 3.4 thou/uL 1.40-6.50 N Hematology (test code = LYMPH#) 2.0 thou/uL 1.20-3.40 N Hematology (test code = MONO#) 0.4 thou/uL 0.11-0.59 N Hematology (test code = EOS#) 0.0 thou/uL 0.0-0.7 N Hematology (test code = BASO#) 0.0 thou/uL 0.0-0.2 N [id number] 12:06:00 Test Item Value Reference Range Interpretation Comments Accuchek (test code = ACU) 92 mg/dL 70-110 N [id number] 06:02:00 Test Item Value Reference Range Interpretation Comments Accuchek (test code = ACU) 90 mg/dL 70-110 N [id number] 05:18:00 Test Item Value Reference Range Interpretation Comments Chemistry (test code 138 mmol/L 136-145 N = NA-T) Chemistry (test code 4.4 mmol/L 3.5-5.1 N = K-T) Chemistry (test code 102 mmol/L 98-107 N = CL) Chemistry (test code 31 mmol/L 22-29 H = CO2) Chemistry (test code 9 mmol/L 10-20 L = ANGP) Chemistry (test code 24 mg/dL 9.8-20.1 H = BUN) Chemistry (test code 0.68 mg/dL 0.6-1.1 N = CREATT) Chemistry (test code 90 Referen ce Range for = EGFRMDRD) Estimated GFR: Greater than 90 mL/min/ 1.73 m2NOTE:The MDRD equation has no t been validated for u se with theelderly (ove r 70 years of age), women, patients with serious comorbi d condition or pe rsons with extremes o fbody size, muscle ma ss, or nutritional sta tus. Chemistry (test code 98 mg/dL 70-105 N = GLU-T) Chemistry (test code 9.5 mg/dL 7.8-10.44 N = CA) Chemistry (test code 0.3 mg/dL 0.2-1.2 N = TBILI-T) Chemistry (test code 6.3 g/dL 6.0-8.3 N = TP) Chemistry (test code 3.9 g/dL 3.5-5.0 N = ALB) Chemistry (test code 2.4 g/dL 2.4-3.5 N = GLOB) Chemistry (test code 1.6 g/dL 1.2-2.2 N = AG) Chemistry (test code 69 U/L 40-150 N = ALP) Chemistry (test code 26 U/L 5-34 N = AST) Chemistry (test code 32 U/L 8-55 N = ALT) [id number] 05:18:00 Test Item Value Reference Range Interpretation Comments Chemistry (test code = LIP) 25 U/L 8-78 N [id number] 04:54:00 Test Item Value Reference Range Interpretation Comments Hematology (test code = WBCT) 4.2 thou/uL 4.8-10.8 L Hematology (test code = RBCT) 3.86 mill/uL 4.20-5.40 L Hematology (test code = HGBT) 12.2 g/dL 12.0-16.0 N Hematology (test code = HCTT) 36.6 % 36.0-47.0 N Hematology (test code = MCV) 94.7 fL 78.0-98.0 N Hematology (test code = MCH) 31.5 pg 27.0-31.0 H Hematology (test code = MCHC) 33.2 g/dL 32.0-36.0 N Hematology (test code = RDW) 12.5 % 11.5-14.5 N Hematology (test code = PLTT) 141 thou/uL 130-400 N Hematology (test code = MPV) 9.3 fL 7.4-10.4 N Hematology (test code = %NEUT) 45.8 % 42.0-75.0 N Hematology (test code = %LYMPH) 38.4 % 21.0-51.0 N Hematology (test code = %MONO) 13.5 % 0.0-10.0 H Hematology (test code = %EOS) 1.7 % 0.0-10.0 N Hematology (test code = %BASO) 0.7 % 0.0-1.0 N Hematology (test code = NEUT#) 1.9 thou/uL 1.40-6.50 N Hematology (test code = LYMPH#) 1.6 thou/uL 1.20-3.40 N Hematology (test code = MONO#) 0.6 thou/uL 0.11-0.59 H Hematology (test code = EOS#) 0.1 thou/uL 0.0-0.7 N Hematology (test code = BASO#) 0.0 thou/uL 0.0-0.2 N [id number] 00:21:00 Test Item Value Reference Range Interpretation Comments Accuchek (test code = ACU) 110 mg/dL 70-110 N [id number] 18:29:00 Test Item Value Reference Range Interpretation Comments Accuchek (test code = ACU) 91 mg/dL 70-110 N [id number] 12:25:00 Test Item Value Reference Range Interpretation Comments Accuchek (test code = ACU) 108 mg/dL 70-110 N [id number] 09:22:00 Test Item Value Reference Range Interpretation Comments Chemistry (test code 138 mmol/L 136-145 N = NA-T) Chemistry (test code 4.6 mmol/L 3.5-5.1 N = K-T) Chemistry (test code 101 mmol/L 98-107 N = CL) Chemistry (test code 29 mmol/L 22-29 N = CO2) Chemistry (test code 13 mmol/L 10-20 N = ANGP) Chemistry (test code 24 mg/dL 9.8-20.1 H = BUN) Chemistry (test code 0.69 mg/dL 0.6-1.1 N = CREATT) Chemistry (test code 88 Referen ce Range for = EGFRMDRD) Estimated GFR: Greater than 90 mL/min/ 1.73 m2NOTE:The MDRD equation has no t been validated for u se with theelderly (ove r 70 years of age), women, patients with serious comorbi d condition or pe rsons with extremes o fbody size, muscle ma ss, or nutritional sta tus. Chemistry (test code 105 mg/dL 70-105 N = GLU-T) Chemistry (test code 10.1 mg/dL 7.8-10.44 N = CA) [id number] 09:00:00 Test Item Value Reference Range Interpretation Comments Hematology (test code = WBCT) 4.8 thou/uL 4.8-10.8 N Hematology (test code = RBCT) 4.55 mill/uL 4.20-5.40 N Hematology (test code = HGBT) 13.9 g/dL 12.0-16.0 N Hematology (test code = HCTT) 43.2 % 36.0-47.0 N Hematology (test code = MCV) 94.9 fL 78.0-98.0 N Hematology (test code = MCH) 30.6 pg 27.0-31.0 N Hematology (test code = MCHC) 32.2 g/dL 32.0-36.0 N Hematology (test code = RDW) 12.3 % 11.5-14.5 N Hematology (test code = PLTT) 156 thou/uL 130-400 N Hematology (test code = MPV) 8.9 fL 7.4-10.4 N Hematology (test code = %NEUT) 57.0 % 42.0-75.0 N Hematology (test code = %LYMPH) 30.6 % 21.0-51.0 N Hematology (test code = %MONO) 10.1 % 0.0-10.0 H Hematology (test code = %EOS) 1.4 % 0.0-10.0 N Hematology (test code = %BASO) 0.9 % 0.0-1.0 N Hematology (test code = NEUT#) 2.8 thou/uL 1.40-6.50 N Hematology (test code = LYMPH#) 1.5 thou/uL 1.20-3.40 N Hematology (test code = MONO#) 0.5 thou/uL 0.11-0.59 N Hematology (test code = EOS#) 0.1 thou/uL 0.0-0.7 N Hematology (test code = BASO#) 0.0 thou/uL 0.0-0.2 N [id number] 06:04:00 Test Item Value Reference Range Interpretation Comments Accuchek (test code = ACU) 96 mg/dL 70-110 N [id number] 00:51:00 Test Item Value Reference Range Interpretation Comments Accuchek (test code = ACU) 90 mg/dL 70-110 N [id number] 18:12:00 Test Item Value Reference Range Interpretation Comments Accuchek (test code = ACU) 108 mg/dL 70-110 N [id number] 12:16:00 Test Item Value Reference Range Interpretation Comments Accuchek (test code = ACU) 105 mg/dL 70-110 N [id number] 05:51:00 Test Item Value Reference Range Interpretation Comments Accuchek (test code = ACU) 101 mg/dL 70-110 N [id number] 00:16:00 Test Item Value Reference Range Interpretation Comments Accuchek (test code = ACU) 95 mg/dL 70-110 N [id number] 17:51:00 Test Item Value Reference Range Interpretation Comments Accuchek (test code = ACU) 112 mg/dL 70-110 H [id number] 12:02:00 Test Item Value Reference Range Interpretation Comments Accuchek (test code = ACU) 108 mg/dL 70-110 N [id number] 06:02:00 Test Item Value Reference Range Interpretation Comments Accuchek (test code = ACU) 92 mg/dL 70-110 N [id number] 00:56:00 Test Item Value Reference Range Interpretation Comments Accuchek (test code = ACU) 111 mg/dL 70-110 H [id number] 18:08:00 Test Item Value Reference Range Interpretation Comments Accuchek (test code = ACU) 111 mg/dL 70-110 H [id number] 13:00:00 Test Item Value Reference Range Interpretation Comments Accuchek (test code = ACU) 136 mg/dL 70-110 H [id number] 11:13:00 Test Item Value Reference Range Interpretation Comments Chemistry (test code = PHOS-T) 4.5 mg/dL 2.3-4.7 N [id number] 10:08:00 Test Item Value Reference Range Interpretation Comments Chemistry (test code = MG) 2.1 mg/dL 1.6-2.6 N [id number] 06:17:00 Test Item Value Reference Range Interpretation Comments Accuchek (test code = ACU) 93 mg/dL 70-110 N [id number] 02:33:00 Test Item Value Reference Range Interpretation Comments Accuchek (test code = ACU) 100 mg/dL 70-110 N [id number] 18:17:00 Test Item Value Reference Range Interpretation Comments Accuchek (test code = ACU) 105 mg/dL 70-110 N [id number] 14:06:00 Test Item Value Reference Range Interpretation Comments Accuchek (test code = ACU) 123 mg/dL 70-110 H [id number] 09:52:00 Test Item Value Reference Range Interpretation Comments Chemistry (test code 138 mmol/L 136-145 N = NA-T) Chemistry (test code 4.9 mmol/L 3.5-5.1 N = K-T) Chemistry (test code 101 mmol/L 98-107 N = CL) Chemistry (test code 26 mmol/L 22-29 N = CO2) Chemistry (test code 16 mmol/L 10-20 N = ANGP) Chemistry (test code 15 mg/dL 9.8-20.1 N = BUN) Chemistry (test code 0.72 mg/dL 0.6-1.1 N = CREATT) Chemistry (test code 84 Referen ce Range for = EGFRMDRD) Estimated GFR: Greater than 90 mL/min/ 1.73 m2NOTE:The MDRD equation has no t been validated for u se with theelderly (ove r 70 years of age), women, patients with serious comorbi d condition or pe rsons with extremes o fbody size, muscle ma ss, or nutritional sta tus. Chemistry (test code 97 mg/dL 70-105 N = GLU-T) Chemistry (test code 9.6 mg/dL 7.8-10.44 N = CA) Chemistry (test code 0.2 mg/dL 0.2-1.2 N = TBILI-T) Chemistry (test code 7.1 g/dL 6.0-8.3 N = TP) Chemistry (test code 4.5 g/dL 3.5-5.0 N = ALB) Chemistry (test code 2.6 g/dL 2.4-3.5 N = GLOB) Chemistry (test code 1.7 g/dL 1.2-2.2 N = AG) Chemistry (test code 76 U/L 40-150 N = ALP) Chemistry (test code 17 U/L 5-34 N = AST) Chemistry (test code 18 U/L 8-55 N = ALT) [id number] 09:52:00 Test Item Value Reference Range Interpretation Comments Chemistry (test code = MG) 2.6 mg/dL 1.6-2.6 N [id number] 09:36:00 Test Item Value Reference Range Interpretation Comments Chemistry (test code = PHOS-T) 4.8 mg/dL 2.3-4.7 H [id number] 07:41:00 Test Item Value Reference Range Interpretation Comments Accuchek (test code = ACU) 106 mg/dL 70-110 N Chemistry - Anna [id number] 11:44:00 Test Item Value Reference Range Interpretation Comments Chemistry - Anna Negative Negative Testing (test code = ANASC) Chemistry - Anna Negative Negative SYMPHONY SC REEN Testing (test code INCLUDES: GARCIA, = ANASYM) SS-A/Ro, SS-B/L a, U1RNP,RNP70, SCL-70, CENP, J o-1 Chemistry - Anna 0.1 Ratio < 0.7 Negative Less th an 0.7 Testing (test code Ratio = N egative = ANASYMQUANT) 0.7 - 1.0 Rat io = Equivocal Great er than 1.0 Ratio = POSITIVE Chemistry - Anna Less than 0.5 <10 Negative Testing (test code IU/mL = DSDNAIGG) Chemistry - Anna dsDNA Less than Testing (test code 10.0 IU/m L = = DSDNAINTERP) Negative 10.0 - 15.0 IU/mL = Equivocal Great er than 15.0 IU/mL = POSITIVE Chemistry - Anna NEW METHOD Values o btained Testing (test code with diff erent = ELIAANANEWMETH) assay meth ods CANNOT be usedINTERCHANGE ABLY .If in the cour se of monitoring a patient, the as say methodused for determining lev els is changed, a newbaseline/ser ial monitoring may need to be performed .SEE REFERENCE RANGE S FOR NEW METHODOLOGY.Met hod: Enzyme Linked Fluorescent Immunoassay (Anna)Reference s: [employer] Anna Package Inserts - Directions forU se, November,December 29, [employer]. [id number] 06:04:00 Test Item Value Reference Range Interpretation Comments Chemistry (test code 136 mmol/L 136-145 N = NA-T) Chemistry (test code 4.3 mmol/L 3.5-5.1 N = K-T) Chemistry (test code 107 mmol/L 98-107 N = CL) Chemistry (test code 23 mmol/L 22-29 N = CO2) Chemistry (test code 10 mmol/L 10-20 N = ANGP) Chemistry (test code 8 mg/dL 9.8-20.1 L = BUN) Chemistry (test code 0.76 mg/dL 0.6-1.1 N = CREATT) Chemistry (test code 79 Referen ce Range for = EGFRMDRD) Estimated GFR: Greater than 90 mL/min/ 1.73 m2NOTE:The MDRD equation has no t been validated for u se with theelderly (ove r 70 years of age), women, patients with serious comorbi d condition or pe rsons with extremes o fbody size, muscle ma ss, or nutritional sta tus. Chemistry (test code 79 mg/dL 70-105 N = GLU-T) Chemistry (test code 8.4 mg/dL 7.8-10.44 N = CA) Chemistry (test code 0.6 mg/dL 0.2-1.2 N = TBILI-T) Chemistry (test code 5.7 g/dL 6.0-8.3 L = TP) Chemistry (test code 3.6 g/dL 3.5-5.0 N = ALB) Chemistry (test code 2.1 g/dL 2.4-3.5 L = GLOB) Chemistry (test code 1.7 g/dL 1.2-2.2 N = AG) Chemistry (test code 65 U/L 40-150 N = ALP) Chemistry (test code 26 U/L 5-34 N = AST) Chemistry (test code 29 U/L 8-55 N = ALT) [id number] 05:36:00 Test Item Value Reference Range Interpretation Comments Hematology (test code = WBCT) 5.5 thou/uL 4.8-10.8 N Hematology (test code = RBCT) 3.92 mill/uL 4.20-5.40 L Hematology (test code = HGBT) 12.4 g/dL 12.0-16.0 N Hematology (test code = HCTT) 37.2 % 36.0-47.0 N Hematology (test code = MCV) 94.9 fL 78.0-98.0 N Hematology (test code = MCH) 31.8 pg 27.0-31.0 H Hematology (test code = MCHC) 33.5 g/dL 32.0-36.0 N Hematology (test code = RDW) 12.2 % 11.5-14.5 N Hematology (test code = PLTT) 163 thou/uL 130-400 N Hematology (test code = MPV) 8.0 fL 7.4-10.4 N Hematology (test code = %NEUT) 59.3 % 42.0-75.0 N Hematology (test code = %LYMPH) 31.7 % 21.0-51.0 N Hematology (test code = %MONO) 7.3 % 0.0-10.0 N Hematology (test code = %EOS) 1.2 % 0.0-10.0 N Hematology (test code = %BASO) 0.6 % 0.0-1.0 N Hematology (test code = NEUT#) 3.3 thou/uL 1.40-6.50 N Hematology (test code = LYMPH#) 1.7 thou/uL 1.20-3.40 N Hematology (test code = MONO#) 0.4 thou/uL 0.11-0.59 N Hematology (test code = EOS#) 0.1 thou/uL 0.0-0.7 N Hematology (test code = BASO#) 0.0 thou/uL 0.0-0.2 N [id number] 14:38:00 Test Item Value Reference Range Interpretation Comments Chemistry (test code = C3) 97.00 mg/dL 83-193 N [id number] 14:38:00 Test Item Value Reference Range Interpretation Comments Chemistry (test code = C4) 18.00 mg/dL 15-57 N [id number] 14:15:00 Test Item Value Reference Range Interpretation Comments Hematology (test code = SED) 1 mm/hr Less than 30 [id number] 05:58:00 Test Item Value Reference Range Interpretation Comments Chemistry (test code 136 mmol/L 136-145 N = NA-T) Chemistry (test code 3.9 mmol/L 3.5-5.1 N = K-T) Chemistry (test code 107 mmol/L 98-107 N = CL) Chemistry (test code 22 mmol/L 22-29 N = CO2) Chemistry (test code 11 mmol/L 10-20 N = ANGP) Chemistry (test code 11 mg/dL 9.8-20.1 N = BUN) Chemistry (test code 0.78 mg/dL 0.6-1.1 N = CREATT) Chemistry (test code 76 Referen ce Range for = EGFRMDRD) Estimated GFR: Greater than 90 mL/min/ 1.73 m2NOTE:The MDRD equation has no t been validated for u se with theelderly (ove r 70 years of age), women, patients with serious comorbi d condition or pe rsons with extremes o fbody size, muscle ma ss, or nutritional sta tus. Chemistry (test code 84 mg/dL 70-105 N = GLU-T) Chemistry (test code 8.2 mg/dL 7.8-10.44 N = CA) Chemistry (test code 0.6 mg/dL 0.2-1.2 N = TBILI-T) Chemistry (test code 5.7 g/dL 6.0-8.3 L = TP) Chemistry (test code 3.7 g/dL 3.5-5.0 N = ALB) Chemistry (test code 2.0 g/dL 2.4-3.5 L = GLOB) Chemistry (test code 1.9 g/dL 1.2-2.2 N = AG) Chemistry (test code 50 U/L 40-150 N = ALP) Chemistry (test code 15 U/L 5-34 N = AST) Chemistry (test code 9 U/L 8-55 N = ALT) [id number] 05:24:00 Test Item Value Reference Range Interpretation Comments Hematology (test code = WBCT) 5.0 thou/uL 4.8-10.8 N Hematology (test code = RBCT) 3.80 mill/uL 4.20-5.40 L Hematology (test code = HGBT) 12.0 g/dL 12.0-16.0 N Hematology (test code = HCTT) 36.0 % 36.0-47.0 N Hematology (test code = MCV) 94.9 fL 78.0-98.0 N Hematology (test code = MCH) 31.7 pg 27.0-31.0 H Hematology (test code = MCHC) 33.4 g/dL 32.0-36.0 N Hematology (test code = RDW) 12.4 % 11.5-14.5 N Hematology (test code = PLTT) 162 thou/uL 130-400 N Hematology (test code = MPV) 8.0 fL 7.4-10.4 N Hematology (test code = %NEUT) 47.3 % 42.0-75.0 N Hematology (test code = %LYMPH) 43.6 % 21.0-51.0 N Hematology (test code = %MONO) 7.5 % 0.0-10.0 N Hematology (test code = %EOS) 0.7 % 0.0-10.0 N Hematology (test code = %BASO) 0.8 % 0.0-1.0 N Hematology (test code = NEUT#) 2.4 thou/uL 1.40-6.50 N Hematology (test code = LYMPH#) 2.2 thou/uL 1.20-3.40 N Hematology (test code = MONO#) 0.4 thou/uL 0.11-0.59 N Hematology (test code = EOS#) 0.0 thou/uL 0.0-0.7 N Hematology (test code = BASO#) 0.0 thou/uL 0.0-0.2 N [id number] 15:07:00 Test Item Value Reference Range Interpretation Comments Toxicology Detected NotDetected A (test code = NISHA) Toxicology Not Detected NotDetected (test code = PCP) Toxicology Not Detected NotDetected (test code = COCN) Toxicology Not Detected NotDetected (test code = METHAMPU) Toxicology Not Detected NotDetected (test code = OPIA) Toxicology Not Detected NotDetected (test code = AMPHU) Toxicology Not Detected NotDetected (test code = MAX) Toxicology Not Detected NotDetected (test code = TRICY) Toxicology Not Detected NotDetected (test code = MTD) Toxicology Not Detected NotDetected (test code = RAYSA) Toxicology Not Detected NotDetected (test code = OXYCOD) Toxicology Not Detected NotDetected (test code = PPX) Toxicology The [employer] Pro file-V Panel (test code = for Qualitative Drugs MTCUTOFF) ofAbuse assays are for presumptive scr eening testing only.Th e drug class and detec tion limits are as follows: Drug Class Detection Limit Amphetamine 500 ng/mL*Brielle turates 200 ng/mLBenzodiaze pines 150 ng/mL*Cocaine 1 50 ng/mL*Methamphe tamine 500 ng/mL*Methadone 200 ng/mL*Opiates 1 00 ng/mL*Oxycodone 100 ng/mLPCP 25 ng/mLPropoxyphe ne 300 ng/mLTricyclic Antidepressants 300 ng/mLCannabinoi ds (THC) 50 ng/mLTests whic h yield a presumptive pos itive result must bet ested using a more specific alternate chemical method inorder to obtain a confir med analytical resu lt. Additionalconfi rmation and identification may be ordered on a ro utinebasis, if desired. Pre sumptive positive urines are held fortwo weeks. Urine Source: Urine Straight [id number] 14:53:00 Test Item Value Reference Range Interpretation Comments Urinalysis (test code = Colorless Yellow UACLR) Urinalysis (test code = Clear Clear UACLY) Urinalysis (test code = SPGR) 1.006 1.002-1.036 N Urinalysis (test code = NAYELI) 7.5 5.0-9.0 N Urinalysis (test code = Negative Trista/uL Negative UALEU) Urinalysis (test code = Negative Negative UANIT) Urinalysis (test code = Negative mg/dL Neg-Trace PROUADIP) Urinalysis (test code = Normal mg/dL Negative GLUCU) Urinalysis (test code = KETU) Negative mg/dL Negative Urinalysis (test code = Normal mg/dL Less than 2 UAUROB) Urinalysis (test code = Negative Negative UABIL) Urinalysis (test code = Negative Negative UABLD) Urine Source: Urine Straight [id number] 14:46:00 Test Item Value Reference Range Interpretation Comments Accuchek (test code = ACU) 100 mg/dL 70-110 N [id number] 14:29:00 Test Item Value Reference Range Interpretation Comments Chemistry (test code 138 mmol/L 136-145 N = NA-T) Chemistry (test code 3.8 mmol/L 3.5-5.1 N = K-T) Chemistry (test code 102 mmol/L 98-107 N = CL) Chemistry (test code 17 mmol/L 22-29 L = CO2) Chemistry (test code 23 mmol/L 10-20 H = ANGP) Chemistry (test code 10 mg/dL 9.8-20.1 N = BUN) Chemistry (test code 0.88 mg/dL 0.6-1.1 N = CREATT) Chemistry (test code 66 Referen ce Range for = EGFRMDRD) Estimated GFR: Greater than 90 mL/min/ 1.73 m2NOTE:The MDRD equation has no t been validated for u se with theelderly (ove r 70 years of age), women, patients with serious comorbi d condition or pe rsons with extremes o fbody size, muscle ma ss, or nutritional sta tus. Chemistry (test code 108 mg/dL 70-105 H = GLU-T) Chemistry (test code 10.2 mg/dL 7.8-10.44 N = CA) Chemistry (test code 0.6 mg/dL 0.2-1.2 N = TBILI-T) Chemistry (test code 7.3 g/dL 6.0-8.3 N = TP) Chemistry (test code 4.8 g/dL 3.5-5.0 N = ALB) Chemistry (test code 2.5 g/dL 2.4-3.5 N = GLOB) Chemistry (test code 1.9 g/dL 1.2-2.2 N = AG) Chemistry (test code 67 U/L 40-150 N = ALP) Chemistry (test code 17 U/L 5-34 N = AST) Chemistry (test code 10 U/L 8-55 N = ALT) [id number] 14:28:00 Test Item Value Reference Range Interpretation Comments Chemistry (test Less than 10.0-30.0 L Therapeutic Range: 10.0 - code = ACET-T) 6.0 mcg/mL 30.0 ug/mLTox ic Range: Possible toxici ty: 150 - 200 ug/mL Probable toxicity: Greater than 20 0 ug/mL*IMPORTANT TESTING INFORMATION* Th e half-life of NAC is 2 jimbo rs. The total NAC clearanceis 5.6 hours for adults and 11 hours for Newborns. Testi ng acetaminophen l evels prior to a reasonable timeframe for clearance c an cause falsely decreasedacetam inophen levels. Chemistry (test Less than Less than 10 The pharmaco logical response code = ETOH) 10 mg/dL to blood alcoho l levels mayvary from in dividual to individual. Neg ative: Less than 10 mg/dL T oxic: 50 - 100 mg/dL Depre ssion of [employer]: Greater than 10 0 mg/dL Fatalities repo rted: Greater than 400 mg/dL Chemistry (test Less than 15.0-30.0 L code = SALCY) 8.0 mg/dL [id number] 14:05:00 Test Item Value Reference Range Interpretation Comments Hematology (test code = WBCT) 9.3 thou/uL 4.8-10.8 N Hematology (test code = RBCT) 4.58 mill/uL 4.20-5.40 N Hematology (test code = HGBT) 14.5 g/dL 12.0-16.0 N Hematology (test code = HCTT) 42.8 % 36.0-47.0 N Hematology (test code = MCV) 93.5 fL 78.0-98.0 N Hematology (test code = MCH) 31.6 pg 27.0-31.0 H Hematology (test code = MCHC) 33.8 g/dL 32.0-36.0 N Hematology (test code = RDW) 12.4 % 11.5-14.5 N Hematology (test code = PLTT) 251 thou/uL 130-400 N Hematology (test code = MPV) 8.3 fL 7.4-10.4 N Hematology (test code = %NEUT) 51.7 % 42.0-75.0 N Hematology (test code = %LYMPH) 42.5 % 21.0-51.0 N Hematology (test code = %MONO) 5.0 % 0.0-10.0 N Hematology (test code = %EOS) 0.0 % 0.0-10.0 N Hematology (test code = %BASO) 0.7 % 0.0-1.0 N Hematology (test code = NEUT#) 4.8 thou/uL 1.40-6.50 N Hematology (test code = LYMPH#) 3.9 thou/uL 1.20-3.40 H Hematology (test code = MONO#) 0.5 thou/uL 0.11-0.59 N Hematology (test code = EOS#) 0.0 thou/uL 0.0-0.7 N Hematology (test code = BASO#) 0.1 thou/uL 0.0-0.[address] Abdomen Pelvis W Con [facility]: FAYE TONY SAVI : 1960 Sex: FLETICIA [facility] Pt Name: TONY MCKINNEY [address] Phys: [place] [address] : 1960 Age: 61 SEX:F [phone] Exam Date: 03/10/22 Status: REG ER Acct: [id number] Loc: CATHERINE Pt Unit #: [id number] Report #: [id number] CC: oPlo Arredondo DO CAT SCAN REPORT Order # Category/Exam [id number] CT/CT Abdomen Pelvis W Con ([id number]): . Results CT abdomen pelvis with contrast (03/10/2022) HISTORY: Abdominal pain. History of intestinal removal. FINDINGS: The lung bases are clear. The liver, spleen, pancreas, adrenal glands, kidneys and abdominal aortashowed no acute findings. A small 7 to 8 mm cyst in the right lobe of the liver has not changed overtime. Various tubing is seen in the patient. A gastrostomy tube is present in other internal drain tubes are seen. There is no dilation of remaining bowel to suggest obstruction. No free air is present. No focal abscess was appreciated. The pelvis shows a small amount of free fluid in cul-de-sac. IMPRESSION: Aside from a small amount of fluid in the cul-de-sac, there were no other findings of currentconcern. The latter may be expected given the patient's prior surgeries and drainage patterns. Findings discussed with Dr. Arredondo at 1700 on 03/10/2022. Reported By: REHANA TELLEZ MD Electronically Signed Date/Time: 03/10/22 172 Technologist: Dictated Date/Time: 03/10/22 1719 Transcribed Date/Time:CT Brain WO Con [facility] 1960 [facility]: [facility] MCKIN[facility] [address] Phys: Quintin Alanis MD [place], [place] [address] : 1960 Age: 61 SEX:F [phone] Exam Date: 10/31/21 Status: REG ER Acct: [id number] Loc: ERS Pt Unit #: [id number] Report #: [id number] CC: ED TEMP PROVIDER Quintin Alanis MD CAT SCAN REPORT Order # Category/Exam [id number] CT/CT Brain WO Con ([id number]): . R esults Head CT without contrast 10/31/2021: COMPARISON: 03/15/2019 HISTORY: Fall, head trauma, possibleseizure TECHNIQUE: Axial CT imaging at 2.5 mm intervals from vertex through skull base without contrast. Coronal and sagittal reformatted imaging provided FINDINGS: The visualized paranasal sinuses and mastoid air cells are well-aerated. There is no displaced calvarial fracture. There is no intracranial hemorrhage, midline shift, mass effect, or ventricular enlargement. If there is clinical concern for a seizure focus, follow-up brain MRI may be beneficial. IMPRESSION: No intracranial hemorrhage or displaced calvarial fracture. Reported By: Jorge Eaton MD Electronically Signed Date/Time: 10/31/211828 Technologist: YESENIA Dictated Date/Time: 10/31/211826 Transcribed Date/Time:CT [facility] 1960 [facility]: [facility] MCKINNEY [address] Phys: [place] [address] : 1960 Age: 60 SEX:F [phone] Exam Date: 03/31/21 Status: REG ER Acct: [id number] Loc: CATHERINE Pt Unit #: [id number] Report #: [id number] CC: VON VALLEJO MD CAT SCAN REPORT Order # Category/Exam [id number] CT/CT Abdomen Pelvis W Con ([id number]): . Results CT ab domen pelvis with contrast (03/31/2021) HISTORY: Ileostomy 1.5 years ago. Bloody mucus drainage todayand abdominal pain. COMPARISON: 06/10/2020 FINDINGS: The lung bases are clear. The liver shows a small 8 mm cyst in the right lobe of no concern. The left lobe extends over into the left flank, but the liver does not appear abnormal internally. The spleen and pancreas were unremarkable. There has been a prior cholecystectomy. The kidneys and aorta appear normal. An ileostomy is noted. There are multiple fluid-filled loops of bowel, but no loops are dilated or tremendously thick. No free air or free fluid was detected. CT of the pelvis shows no pelvic masses, fluid collections or inflammatory changes. No acute bony changes were appreciated. IMPRESSION: Nonspecific fluid-filled loops of bowel. Enteritis or similar entities might be entertained. Preliminary findings called to Dr. Vallejo at 1957 on 03/31/2021. Reported By: REHANA TELLEZ MD Electronically Signed Date/Time: 03/31/212002 Technologist: CINDY Dictated Date/Time: 03/31/211958 Transcribed Date/Time:CT Abdomen Pelvis WO [facility] Pt Name: TONY MCKINNEY [address] Phys: Abdoulaye Zarate DO [place] [address] : 1960 Age: 60 SEX:F [phone] Exam Date: 05/14/20 Status: DEP ERAcct: [id number] Loc: BURERS Pt Unit #: [id number] Report #: [id number] CC: Abdoulaye Zarate DO CAT SCAN REPORT Order # Category/Exam [id number] CT/CT Abdomen Pelvis WO Con ([id number]): . Results CR CT ABDOMEN AND PELVIS WIHTOUT CONTRAST: 05/14/20 Comparison is made with the 05/09/19 study. The lung bases are clear. The liver, spleen, pancreas, kidneys, adrenal glands, and abdominal aorta showed no acute findings within the limitations of a noncontrast study. No free air or free fluid was detected. CT of the pelvis suggests some mild thickening of the residual portion of the rectum compared to the 2019 study. The differences are only slight. An ileostomy is seen in place. There are no distended loops ofbowel at any point. No free fluid was seen in the pelvis. The bony structures showed no acute findings. IMPRESSION: Equivocal thickening of the rectal wall. The rest of the scan was unremarkable. Findings called to Dr. Zarate at 1812 on 05/14/20. POS: HOME Reported By: REHANA TELLEZ MD Electronically Signed Date/Time: 05/14/20 2311 Technologist: AMY Dictated Date/Time: 05/14/20 1915 Transcribed Date/Time: 05/14/20 1936 [facility] Name: TONY MCKINNEY [address] Phys: [place] [address] : 1960 Age: 59 SEX:F [phone] Exam Date: 05/23/19 Status: ADM IN Acct: [id number] Loc: 2SW Pt Unit #: [id number] Report #: [id number] CC: MICHAELA ARMENDARIZ MD, Joshua MD IMAGING SERVICES REPORT Order # Category/Exam [id number] RAD/XR Small Bowel STANDARD ([id number]): . Results XR Small Bowel STANDARD HISTORY: Abnormal pain and constipation history of partial colectomy. COMPARISON: CT examination of 05/09/2019. FINDINGS: Gastrografin was used for this examination. These small bowel transit time was approximately 1 hour. Surgical chain type sutures are seen within the pelvis. There is a small remnant of colon seen. No obstruction. Small bowel folds are normal in caliber. The anastomosis between the colon and small bowel is obscured by overlapping bowel loops. IMPRESSION: No evidence of obstruction. Small bowel transit time of 1 hour. Reported By: Alvarado Ocampo MD Electronically Signed Date/Time: 05/23/19 1133 Technologist: ELISEO Dictated Date/Time: 05/23/19 1119 Transcribed Date/Time:XR Abdomen 2 [facility]St [facility] Name: TONY [facility]CKINNEY [employer] Phys: [place] [address] : 1960 Age: 59 SEX:F [phone] Exam Date: 05/22/19 Status: REG ER Acct: [id number] Loc: ERS Pt Unit #: [id number] Report #: [id number] CC: Rebeca Paredes MD IMAGING SERVICES REPORT Order # Category/Exam [id number] RAD/XR Abdomen 2 View ([id number]): . Results 2 VIEW ABDOMEN: Date: 05/22/19 INDICATION: Abdominal pain. Comparison made to abdominal film of 04/25/19. CT abdomen and pelvis dated 05/09/19. FINDINGS: Scattered stool in the colon. There is scattered small bowel gas which appears nonspecific. No evidence of small bowel dilatation. A gas- filled loop in the pelvis appears to represent dilated colon in the pelvis, which was also noted on the prior CT. The patient is post partial colectomy. No free air identified under the hemidiaphragm. IMPRESSION: Nonspecific bowel gas pattern. POS: OFF Reported By: Tez Barber MD Electronically Signed Date/Time: 05/22/19 1540 Technologist: [email or web address] Dictated Date/Time: 05/22/19 1504 Transcribed Date/Time: 05/22/19 1517CT Abdomen Pelvis W [facility] Pt Name: TONY GUERRA [employer] [place]: [place] [address] : 1960 Age: 59 SEX:F [phone] Exam Date: 05/09/19 Status: REG ER Acct: [id number] Loc: ERS Pt Unit #: [id number] Report #: [id number] CC: ED TEMP PROVIDER Anaih Lawrence MD *gonzalez CAT SCAN REPORT Order # Category/Exam [id number] CT/CT Abdomen Pelvis W Con ([id number]): . Results CT ABDOMEN AND PELVIS WITH CONTRAST: 05/09/19 INDICATION: Back pain, left lower extremity pain. FINDINGS: There is no evidence of consolidation or effusion at the lower chest. Prior cholecystectomy. Heterogeneity of the liver and spleen due to phase of enhancement. No hydronephrosis of either kidney or evidence of adrenal mass. Mild vascular calcification. Suture material seen at distal colon, within the pelvis. Patient is status post partial colectomy. No compression fracture of the lumbar spine. Disc bulges of the lumbar spine are present at multiple levels, incompletely evaluated. IMPRESSION: No acute process identified. POS: [facility] Reported By: Ubaldo vAila MD Electronically Signed Date/Time: 05/09/19 1610 Technologist: SANTI Dictated Date/Time: 05/09/19 1556 Transcribed Date/Time: 05/09/[address] [facility] Pt Name: TONY GUERRA [employer] Phys: [place] [address] : 1960 Age: 59 SEX:F [phone] Exam Date: 04/28/19 Status: ADM IN Acct: [id number] Loc: T4-B Pt Unit #: [id number] Report #: [id number] CC: NAYA TAO MD MRI REPORT Order # Category/Exam [id number] MRI/MRI Brain WO Con ([id number]): . Results MRI BRAIN WITHOUT CONTRAST: HISTORY: Left upper extremity weakness. COMPARISON: 03/16/2019 FINDINGS: No restricted diffusion is seen. Changes of mild chronic small vessel ischemic disease are again noted. No infarct, hemorrhage, midline shift, or abnormal extraaxial fluid collections are seen. The ventricular size is normal, and the basilar cisterns are patent. IMPRESSION: No evidence of acute intracran ial process. POS: [facility] Reported By: Jurgen Galdamez MD Electronically Signed Date/Time: 04/28/19 1236 Technologist: LG Dictated Date/Time: 04/28/19 1221 Transcribed Date/Time: 04/28/19 1224[facility]: CHARLIETONY Montejo [employer] Phys: [place] [address] : 1960 Age: 59 SEX:F [phone] Exam Date: 04/28/19 Status: ADM IN Acct: [id number] Loc: T4-B Pt Unit #: [id number] Report #: [id number] CC: CONCEPCION ARMANDO MD, VINAYA KUMAR MD IMAGING SERVICES REPORT Order # Category/Exam [id number] RAD/XR Chest 1 View Portable ([id number]): . Results AP CHEST: HISTORY: Shortness of breath. FINDINGS: The lung fieldsare clear. The heart and mediastinum appear normal. The vasculature is normal. IMPRESSION: No acutefindings. POS: [facility] Reported By: Tez Barber MD Electronically Signed Date/Time: 04/28/19 1053 Technologist: AM3 Dictated Date/Time: 04/28/19 0801 Transcribed Date/Time: 04/28/[address] Pelvis WO [facility] Pt Name: TONY GUERRA [address] Phys: [place] [address] : 1960 Age: 59 SEX:F [phone] Exam Date: 04/26/19 Status: ADM IN Acct: [id number] Loc: T4-B Pt Unit #: [id number] Report #: [id number] CC: CONCEPCION ARMANDO MD,Carmelo Bowles MD CAT SCAN REPORT Order # Category/Exam [id number] CT/CT Abdomen Pelvis WO Con ([id number]): . Results CT Abdomen Pelvis WO Con 04/26/2019 1:08 PM HISTORY: Post surgery with stretching of sigmoid colon. Evaluate for perforation of the ilial pouch. History of prior bowel resection and hysterectomy as well as cholecystectomy. COMPARISON: 04/24/2019 Technique: Multiple contiguous axial CT images are obtained through the abdomen and pelvis without IV contrast. Coronal reformats are provided. FINDINGS:This examination is limited for the evaluation of solid organs and vascular structures due to the lack of intravenous contrast. Lower Chest: Lung bases are clear. Abdomen: Liver: Grossly normal nonenhanced CT appearance. Gallbladder: Surgically absent. Pancreas: Grossly normal nonenhanced CT appearance. Spleen: Small splenic granuloma present. Adrenals: Grossly normal nonenhanced CT appearance. Kidneys: Grossly normal nonenhanced CT appearance. No renal calculi are seen, and there is no hydronephrosis. There is prominence of an extrarenal pelvis on the right. Ureters: No evidence of hydroureter, and no definite ureteral calculus is appreciated.. Pelvis: Urinary bladder: within normal limits. Reproductive Organs: Evidence of prior hysterectomy. Lymph Nodes: No definite enlarged lymph nodes are appreciated on this nonenhanced CT scan exam. Bowel: There are postsurgical changes related to a prior colectomy with small bowel to ileal pouch anastomosis versus anastomosis with a portion of the sigmoidcolon. There is suggestion of narrowing at the level of the anastomosis, but there is no extravasation of contrast seen to suggest a leak. No adjacent free fluid or fluid collection is seen. No free intraperitoneal gas is identified. Loops of small bowel proximal to this region are normal in caliber.Peritoneum: No free fluid, free air, or fluid collection. Retroperitoneum: within normal limits. Vessels: Vascular calcifications are again seen in the abdominal aorta and involving the iliac arteries.. Abdominal Wall: within normal limits. Bones: within normal limits. IMPRESSION: 1. Postsurgical changes related to colectomy. There is a small bowel anastomosis with a dilated loop of bowel within the lower pelvis which may represent an ileal pouch. This difficult to definitively confirm, and small bowel to sigmoid colon anastomosis is also a possibility. There is no evidence of extravasation of contrast to suggest a leak, and no free fluid, free intraperitoneal gas, or fluid collection is seen in the abdomen or pelvis. There does appear to be least a degree of narrowing in the region of the anastomosis with normal caliber small bowel, but the small bowel proximal to this region is normal in caliber. 2. Above findings discussed with Dr. [place] on 04/26/2019 at 1409 hours. Reported By: Ed Solo MD Electronically Signed Da te/Time: 04/26/19 1413 Technologist: YESENIA Dictated Date/Time: 04/26/19 1358 Transcribed Date/Time:[facility] 2 [facility] Pt Name: TONY GUERRA [employer] Phys: [place] [address] : 1960 Age: 59 SEX:F [phone] Exam Date: 04/25/19 Status: ADM IN Ac ct: [id number] Loc: T4-B Pt Unit #: [id number] Report #: [id number] CC: CONCEPCION ARMANDO MD, Charles H MD IMAGING SERVICES REPORT Order # Category/Exam [id number] RAD/XR Abdomen 2 View ([id number]): .Results XR Abdomen 2 View History: Fecal impaction Comparison: CT prior day Findings: No dilated air-filled loops of large or small bowel. No abnormal calcifications projecting over the renal shadows. Mild gaseous distention patulous sigmoid colon. Impression: No evidence for bowel obstruction. Reported By: JIA DAVIESElectronically Signed Date/Time: 04/25/19 1528 Technologist: MIGUEL Dictated Date/Time: 04/25/19 Transcribed Date/Time:CT [facility]domen Pelvis [facility] Pt Name: TONY GUERRA [employer] Phys: aMndy Tapia PA-C, [place] [address] : 1960 Age: 59 SEX:F [phone] Exam Date: 04/24/19 Status: REG ERAcct: [id number] Loc: ERS Pt Unit #: [id number] Report #: [id number] CC: ED TEMP PROVIDER Mandy Tapia PA-C CAT SCAN REPORT Order # Category/Exam [id number] CT/CT Abdomen Pelvis W Con ([id number]): . Results CT ABDOMEN AND PELVIS WITH IV CONTRAST: DATE: 04/24/2019. PROVIDED CLINICAL HISTORY: Constipation and abdominal pain. COMPARISON: 03/18/2019. FINDINGS: The visualized lung bases are free of significant opacity. The solid abdominal organs demonstrate an unremarkable CT appearance. Postoperative changes of prior colectomy are redemonstrated. There is no bowel dilatation, inflammatory fat stranding, free fluid, or free air apparent. There is moderate colonic fecal retention at the region of the enterorectal anastomosis. Scattered vascular calcifications are seen. The osseous structures demonstrate no concerning lytic or blastic lesions. IMPRESSION: No evidence for an acute process. POS: [facility] Repo rted By: Rene Middleton MD Electronically Signed Date/Time: 04/24/19 1659 Technologist: AC.TG Dictated Date/Time: 04/24/19 1528 Transcribed Date/Time: 04/24/19 1552SPC CVP LINE PICC INITAL >5[facility] Pt Name: TONY GUERRA [employer] Phys: [place] [address] : 1960 Age: 58 SEX:F [phone] Exam Date: 03/18/19 Status: ADM IN Acct: [id number] Loc: 2SE Pt Unit #: [id number] Report #: [id number] CC: DERRELL ADAMSON MD, TONI W MD Patel, Pulin MD SPEC. IMAGING SERVICES REPORT Order # Category/Exam Results Exam: ULTRASOUND GUIDED LEFT UPPER EXTREMITY PICC LINE PLACEMENT: HISTORY: Patient requires TPN. EXPOSURE: 0.6 minutes, 87 mGy/cm2. FINDINGS: Successful left upper extremity PICC line placement with ultrasound guidance. Distal tip is in the superior vena cava. Trim length 47 cm. Both lumens flush and aspirate without difficulty TECHNIQUE: Consent obtained to perform a left upper extremity PICC line plac ement with ultrasound guidance. Left arm was prepped and draped in the usual sterile fashion. The basilic vein was identified. 1% lidocaine, buffered with sodium bicarbonate was used for local anesthesia. Under ultrasound guidance, a micropuncture needle was used to cannulate the basilic vein. A 0.018guidewire was advanced through the needle to the level of the superior vena cava. Under fluoroscopy,the wire was advanced into the inferior vena cava to document venous access. Wire was subsequently pulled back to the superior vena cava. Tract was dilated. A dual lumen 5 Icelandic catheter was advanced over the wire. Wire was removed. Both lumens flush and aspirate without difficulty. Trim length is 47cm. IMPRESSION: Successful left upper extremity PICC line placement with ultrasound guidance. Transcribed Date/Time: 03/18/2019 12:05 PM Reported By: Tan Chavez MD Electronically Signed Date/Time: 03/18/19 1400 Technologist: MIGUEL Dictated Date/Time: 03/18/19 1054 Transcribed Date/Time:CT Abdomen Pelvis W [facility] Pt Name: TONY GUERRA [employer] Phys: [place] [address] : 1960 Age: 58 SEX:F [phone] Exam Date: 03/18/19 Status: ADM IN Acct: [id number] Loc: 2SE Pt Unit #: [id number] Report #: [id number] CC: DERRELL ADAMSON MD, TONI W MD CAT SCAN REPORT Order # Category/Exam [id number] CT/CT Abdomen Pelvis W Con ([id number]): . Results CT ABDOMEN AND PELVIS WITH CONTRAST: HISTORY: Nausea and vomiting for a year. Weight loss. COMPARISON: None. TECHNIQUE: Multiple contiguous axial images were obtained in a CT of the abdomen and pelvis with contrast. Contrast was administered p.o. Coronal reformats were performed. FINDINGS: The gallbladder has been removed. There are small, subcentimeter hypodensities scattered throughout the liver, which are too small to definitely characterize. No biliary dilatation is seen. The kidneys, adrenal glands, spleen, and pancreas are unremarkable. No free air, free fluid, or stranding changes are seen in the abdomen or pelvis. The patient is status post hysterectomy. The large andsmall bowel are unremarkable. The appendix is not definitely seen. The osseous structures, the visualized inferior thorax, and the abdominal wall soft tissues are unremarkable. IMPRESSION: 1. No evidence of acute intraabdominal/pelvic abnormality. 2. Subcentimeter hypodensities in the liver are too small to definitely characterize. These could represent small cysts or hemangiomas. POS: [facility] Reported By: Jr Lewis MD Electronically Signed Date/Time: 03/18/192132 Technologist: TY DictatedDate/Time: 03/18/192031 Transcribed Date/Time: 03/18/192132MRI Brain WO [facility] Pt Name: TONY GUERRA [employer] Phys: Isadora Rachel [place] [address] : 1960 Age: 58 SEX:F [phone] Exam Date: 03/16/19 Status: ADM IN Acct: [id number] Loc: 2SE Pt Unit #: [id number] Report #: [id number] CC: Isadora Rachel MRI REPORT Order # Category/Exam [id number] MRI/MRI Brain WO Con ([id number]): . Results MRI BRAIN NONCONTRAST: DATE: 03/16/2019 HISTORY: 58-year-old female with seizure FINDINGS: There is no obstructive hydrocephalus. There is no midline shift or any other evidence of mass effect. There is no extra-axial fluid collection. There are mild chronic ischemic white matter changes due to microvascular atherosclerosis. There is otherwise no major intra-axial signal abnormality, recent hemorrhage, or restricted diffusion. IMPRESSION: 1) mild chronic ischemic white matter changes. 2) otherwise negative Reported By: Jason Akhtar MD Electronically SignedDate/Time: 03/16/19 0951 Technologist: SANTO Dictated Date/Time: 03/16/1949 Transcribed Date/Time:CTA Angio Head W WO [facility] Pt Name: TONY GUERRA [employer] Phys: [place] [address] : 1960 Age: 58 SEX:F [id number] Exam Date: 03/15/19 Status: REG ER Acct: [id number] Loc: ERS Pt Unit #: [id number] Report #: [id number] CC: ED TEMP PROVIDER Abdoulaye Payne MD CAT SCAN REPORT Order # Category/Exam [id number] CT/CTA Angio Head W WO Con ([id number]): . Results CT ANGIOGRAM NECK WITH CONTRAST CT ANGIOGRAM OF BRAIN WITH AND WITHOUT CONTRAST: DATE: 03/15/2019 HISTORY: 58-year-old female status post seizure and left upper extremity weakness. COMPARISON: None TECHNIQUE: After IV contrast injection, arterial bolus chasing technique scan performed from aortopulmonic windowto vertex of head. Coronal and sagittal 3-D MIP reconstructions. FINDINGS: Brachiocephalic: No stenosis. Right subclavian: No stenosis. Left subclavian: No stenosis proximally. Distal portion obscured by streak artifact from adjacent contrast bolus in left subclavian vein. Right common carotid: Normal. Left common carotid: Normal. Right cervical internal carotid: Normal. No plaque. Left cervical internal carotid: Normal. No plaque. Bilateral carotid siphons: Normal. No plaque. Right vertebral: Dominant. No stenosis. Left vertebral: Diminutive. No significant stenosis. Basilar: Normal Bilateral posterior cerebral: Normal Bilateral superior cerebellar: Patent. Bilateral anterior cerebral: Normal A1and A2 segments. Bilateral middle cerebral's: Normal M1 segments bilaterally. No intracranial aneurysm identified. IMPRESSION: Negative. Reported By: Jason Akhtar MD Electronically Signed Date/Time: 03/15/19 1525 Technologist: LISA Dictated Date/Time: 03/15/19 1508 Transcribed Date/Time:CT Cervical Spine WO [facility] Pt Name: TONY GUERRA [employer] Phys: Abdoulaye Payne MD, [place] [id number] : 1960 Age: 58 SEX:F [phone] Exam Date: 03/15/19 Status: REG ER Acct: [id number] Loc: ERS Pt Unit #: [id number] Report #: [id number] CC: ED TEMP PROVIDER Abdoulaye Payne MD CAT SCAN REPORT Order # Category/Exam CT/CT Cervical Spine WO Con ([id number]): . Results EXAM:CT cervical spine PROVIDED CLINICAL HISTORY: Code green. Patient fell after a seizure. Injury after a fall. TECHNIQUE: Contiguous axial CT images are obtained through the cervical spine from the skull base to the T2 level. Sagittal and coronal reformatted images are provided. COMPARISON: None FINDINGS: No fracture or subluxation is seen involving the cervical spine. Postsurgical changes related to anterior cervical fusion are present at the C5-6 level with anterior plate and screws transfixing this level. Intradiscal graft material is present at this level. Facet degenerative changes are seen in the cervical spine. There is moderate to severe bilateral neural foraminal narrowing at the C6-7 level due to posterior osteophyte formation and facet degenerative changes. No prevertebral soft tissue swelling apparent. Emphysematous changes are seen in the visualized lung apices bilaterally, and there is also a biapical pleural and parenchymal scarring present. Visualized thyroid gland demonstrates a grossly normal nonenhanced CT appearance. IMPRESSION: Degenerative and postoperative changes involvingthe cervical spine, but no fracture or subluxation is seen. Reported By: Ed Solo MD Electronically Signed Date/Time: 03/15/19 1428 Technologist: LISA Dictated Date/Time: 03/15/19 1421 Transcribed Date/Time: CT Brain WO [facility] Pt Name: TONY GUERRA [employer] Phys: [place] [address] : 1960 Age: 58 SEX:F [phone] Exam Date: 03/15/19 Status: REG ER Acct: [id number] Loc: ERS Pt Unit #: [id number] Report #: [id number] CC: ED TEMP PROVIDER Abdoulaye Payne MD CAT SCAN REPORT Order # Category/Exam [id number] CT/CT Brain WO Con ([id number]): . Results EXAM: Brain CTWithout contrast: HISTORY: Seizure in the hospital lobby with fall and injury COMPARISON: None FINDINGS: No focal mass or midline shift. No intra or extra-axial hemorrhage. Sinuses and mastoids are clear of acute process. IMPRESSION: No mass or bleed or other significant acute intracranial process. Reported By: Yemi Vaca MD Electronically Signed Date/Time: 03/15/19 1423 Technologist: CLW Dictated Date/Time: 03/15/19 1419 Transcribed Date/Time: Notes Date/Time Note Provider Source 2019-05-23 [facility] Name: TONY MCKINNEY MICHAELA ARMENDARIZ LSJH 19:33:00-00:[address] : 1960, Age: 59, Sex: [place] [address] Unit #: [id number], Status: DIS IN [phone] Location: [address] [place] [address] Dictated by: MICHAELA ARMENDARIZ MD Admission Date: 05/22/19 Report #: [id number] Discharge Date: 05/23/19 CC: Mandy Pavon MALIK MD DISCHARGE SUMMARY REPORT DATE OF ADMISSION: 05/22/2019 DATE OF DISCHARGE: 05/23/2019 DISCHARGE DISPOSITION: Home. FOLLOWUP: 1. Follow up with primary care physician, Dali Pavon in 1 week. 2. Follow up with Gastroenterology, Dr. Amaury dunn scheduled. ALLERGIES: THE PATIENT IS ALLERGIC TO OPIOIDS. DISCHARGE MEDICATIONS: Same as admission medica tion. The patient was seen and examined on the day of discharge. Denies any new complaints. The patient is tolerating liquid co nsistency. BRIEF HOSPITAL COURSE: The patient is a 59-year-old female with colectomy in the past, presented to the [facility] room with abdominal discomfort along with nausea and vomiting. She also had a small amount of da rk stool. Please refer to the history and physical for further details. The patient was admitted to the hospital with a diagnosis of nausea, vomiting along with abdominal discomfort o f unclear etiology. Urine drug screen was positive for cannabinoid. Her creatinine remained normal at 0.79. She was started on IV fluids. In November 2018, she underwen t EGD and colonoscopy, which were negative for acute findings except for constip ation. She also had flexible sigmoidoscopy last month. She was evaluated by Gastro enterology, Dr. Rebolledo. Her hemoglobin stayed stable. She had a small bowel x-ray that showed small bowel transit time of 1 hour. The patient has been cleared by Gastroenterology for discharge. She was extensively counseled to discontinue ca nnabis abuse. She appears stable for discharge. She was advised to start bjva-pjc-eiupidl proton pump i nhibitor. FINAL DIAGNOSES: 1. Nausea, vomiting, and abdominal discomfort o f unclear etiology, improved. 2. Melena/black stool of un clear etiology. Her H and H were negative. Stool for occult blood remained negative. 3. Gastroesophageal reflux disease. 4. Peptic ulcer disease. 5. Systemic lupus erythematosus. 6. Cannabis abuse. 7. Familial adenomatous lukasz yposis syndrome, status post subtotal colectomy with colonic remnant and ileoanal pouch anastomosis. 8. Chronic constipation. Plan of care was discussed with the patient in detail, she stated understanding. Job ID: [id number] K Dictated by: MICHAELA ARMENDARIZ MD <Electronically signed by MICHAELA ARMENDARIZ MD> 05/12 02/27 0753 K Dictated Date/Time: 05/23/191853 Transcribed Date/Time: 05/23/191927 Watch Guard Gate: RAFA 2019-05-23 [facility] Name: CHARLIETONY [facility]:00 [facility] : 1960, Age: 59, Sex: SHIR[place] [id number] Unit #: [id number], Status: DIS IN [phone] Location: [address] [place] [address] Dictated by: Pieter Rebolledo MD Admission Date: 05/22/19 Report #: [id number] Discharge Date: 05/23/19 CC: Mandy Pavon MALIK MD Sultz, Joshua MD PROGRESS NOTE DATE OF SERVICE: 05/23/2019 REASON FOR CONSULTATION: Nausea, vomiting, and abdominal pain. SUBJECTIVE: Overnight, per the patient and per the nursing staff, she had repeated episodes of nausea and vomi ting with nonbloody emesis; however, that has improved significantly with the admi nistration of Zofran during this admission. She also continues to have midepigas tric/periumbilical abdominal pain, but that is also improving when compared to previous. This morning, she did undergo a small bowel follow through with adminis tration of oral contrast, and with the ingestion of the oral contrast, it resulted in multiple watery bowel movements, and no significant increase in her pain. She a lso denies any further episodes of the dark black stools that she had endorsed both in clinic and on admission to the ER. Otherwise, she denies any fevers, chills, hematemesis, hematochezia, dysphagia, or odynophagia. OBJECTIVE: VITAL SIGNS: Temperature 98.1, pulse 64, blood pressure 163/85, respiratory rate 16, saturating 100% on room ai r. GENERAL: The patient was ly ing in bed, in no acute distress. Alert and oriented x4. CARDIOVASCULAR: Regular rate and rhythm. RESPIRATORY: Clear to auscultation bilaterally. ABDOMEN: Normoactive bowel sounds. Soft and nondistended. Tenderness to palpation in the midepigastric and periumbilical regions. EXTREMITIES: No cyanosis, clubbing, or edema. LABORATORY DATA: CBC with a white blood cell co unt of 4.2, hemoglobin 12, hematocrit 35.4, platelets 155. Chemistry; sodium of 141, potassium 3.9, chloride 110, CO2 of 26, BUN 8, creatinine 0.76, glucose 82, AST 26, ALT 15, alkaline phosphatase 53, total bilirubin 0.5, lipase 19. IMAGING DATA: CT of the abd omen and pelvis was obtained on May 09, 2019, which showed no evidence of conso lidation or effusion in the lower chest. Surgical change consistent with cholecystec moshe was noted. Suture material was seen at the distal colon within the pelvis ind icative of partial colectomy. There was no mention of obstruction or transition point mentioned durin g this examination. A KUB was obtained on 2018, which showed scattered stool seen within the colon as well as a nons pecific bowel gas pattern. There was no evidence of small bowel dilatation, although a gas-filled l oop in the pelvis appeared to represent dilated colon wit hin the pelvis. There was no evidence of obstruction or free air underneath the diaphragm. Small bowel follow through obtained on May 23, 2019, showed small bowel transit time of approximate ly 1 hour with surgical chain-type sutures seen within the pelvis consistent with ileocolectomy with a small remnant of colon seen. There was no evidence of obstruct ion. The anastomosis between the colon and the small bowel was obscured by overlapping bowel loops. ASSESSMENT AND PLAN: The vinnie marin is a 59-year-old female with past medical history of familial adenomatous lukasz yposis syndrome, status post subtotal colectomy with colonic remnant and ileoana l pouch anastomosis, gastroesophageal reflux disease, osteoarthritis, peptic ulce r disease, lupus, and marijuana abuse, presenting with nausea, vomiting, and dark black stools concern ing for melena. Nausea/vomiting/abdominal p ain: The patient is presenting with a chronic history of nausea and vomiting in agusto tion to midepigastric/periumbilical abdominal pain that has been present for several months to this shea e. She has undergone both esophagogastroduodenoscopy and colonoscopy on November 13, 2018, which did not show any overt pathology within the upper GI tract as well as a colonoscopy that showed stool retained within the rectum and a tight anastomosis between the ileum and rectum. A flexible sigmoidoscopy was further performed on April 26, 2019, which showed that the ileocolonic anastomosis was widely patent a nd easily traversed with the endoscope. During her previous hospital ization, there was some question about possible anastomotic strict ure contributing to retained stool and dilation of the proximal small bowel, but t hat has not been evident on recent imaging including the small bowel follow through obtained earlier today showing complete movement of contrast from the small bow el rapidly into the colon/rectum. However, she does have an extensive history of mar ijuana abuse and has been counseled on multiple occasions about cessation and further use contributing to cannabinoid hyperemesis syndrome. During her most recent clin ic visit, she denied any additional use, but drug screen during this admission was p ositive for cannabis. Upon speaking with the patient today, she states that she has recently used it, but it has "not been on a regular basis". At this point, the increased nausea, vomiting, and abdominal pain could very well be to her recurre nce of a cannabinoid hyperemesis syndrome, in which case the mainstay of therapy wou ld be marijuana cessation. She also does have a recent history of constipation wit h inability to have any bowel movements for 1 week prior to admission, but as eviden lashanda by the small bowel follow through today, there was no evidence of obstruction, an d the contrast flowed through without difficulty making this a much lesser diagnosis. Recommendations: 1. Strongly encourage the p atient against marijuana use as it can contribute to nausea, vomiting, and continued abdominal pain. 2. Would continue with anti emetic medications as you are doing, but be mindful of constipation with increased Zofran use. 3. Pain control per primary team. Melena/black stools: The vinnie marin is presenting with a recent history of increased nausea and vomiting as well as the appearance of black semi-solid to liquid stools. She was ultimately seen in the GI Clinic on May 21, for this reason with the CBC at that time showing no derangement from her baseline H and H. However, she continued to have these kely ck stools concerning for active gastrointestinal bleeding and was subsequently advise d to go to the ER for further evaluation. While in the ER, there was again no derangement in her H and H consistent with active gastrointestinal bleeding. At this time, the appearance of these black stools could be due to her increased allyssa sea and vomiting with esophagitis contributing to minimal bleeding generating a black stool, but not nece ssarily enough to generate a significant drop in her H and H. Given her rece nt negative esophagogastroduodenoscopy and colonoscopy/flexible sigmoidoscopy, the likelihood of either upper or lower gastrointestinal tract an omaly is highly unlikely. Recommendations: 1. Would continue to trend her H and H and transfuse as necessary to maintain an H and H of 7/21. 2. Continue to monitor clin ically for signs of active gastrointestinal bleeding. 3. Further endoscopic intervention is not indic ated at this time. 4. Proceed with aggressive antiemetic control as above in addition to PPI use. With the improvement in the patient's abdominal pain, ability to tolerate some p.o., and now having liquid bowel movements, her curr ent clinical situation is stabilizing. We will sign off at this time with the patient to follow up in the GI Clinic within the next 2 to 3 weeks. Job ID: [id number] K Dictated by: Pieter Rebolledo MD <Electronically signed by Pieter Rebolledo MD> 1344 K Dictated Date/Time: 05/23/19 1743 Transcribed Date/Time: 05/23/19 1825 Watch Guard Gate: RAFA 2019-05-23 [facility] Name: TONY GUERRA Isadora Rachel LSJ 01:24:00-00:[address] : 1960, Age: 59, Sex: [place]IR[place] [address] Unit #: [id number], Status: DIS IN [phone] Location: [address] [place] [address] Dictated by: Isadora Rachel Admission Date: 05/22/19 Report #: [id number] Discharge Date: 05/23/19 CC: Mandy Pavon MALIK MD O'Briant, Deborah FNP HISTORY AND PHYSICAL REPORT PRIMARY CARE PHYSICIAN: Roe Chavez HISTORY OF PRESENT ILLNESS: Ms. Mckinney is a 59-year-old female with evaluation in the emergency room for abdomina l pain. Reports that she has been dealing with this for quite some time. Saw Dr. Dianne coughlin yesterday in the office, but today when she woke up, she had increased cramping with vomiting x2 and also reports she noticed some melena today when she went to sit down to urinate. The patient reports having several episodes of melena today at least 3 or 4 times and she reports that the feeling to have a bowel movement is no longer there, which she reports is new. PAST MEDICAL HISTORY: Inclu anjali FAP and lupus and that her large intestine has been removed and had an ileoanal anastomosis and ileal pouch, a small opening within the ileal pouch that was dilate d to 2 mm on the last visit, which was 04/24/2019. The patient also has severe pro tein calorie malnutrition. The patient states that she has not been able to have a bowel movement on her own without the use of enemas, Magnesium citrate, Colace, and she reports that before today the last bowel movement she is able to have and the last use of any laxatives was on Monday. The patient today had some nausea, vomi ting, increase of reflux symptoms, and then the diarrhea today with the melena that she noted, which precipitated her visit to the emergency room. She was seen here on 04/24/2019 for simil ar symptoms. Dr. Blackwood did a flexible sigmoidoscopy on t , which showed the ileoanal anastomosis in the ileal pouch and at that poi nt, it was dilated to 10 mm. Per patient, when she saw Dr. Rebolledo yesterday, he was concerned that part of her small intestine was ischemic and this might account for some of the symptoms that she continues to have. Dr. Rebolledo was contacted [facility] today and he asked for the patient to be admitted and he would follow up and she was admitted to the observation unit. ALLERGIES: MORPHINE. MEDICATIONS: 1. Omeprazole 40 mg p.o. at bedtime. 2. Lyrica 75 mg p.o. twice a day. 3. Zantac 300 mg p.o. daily. 4. Albuterol inhaler q.6 hours p.r.n. 5. Vitamin C p.o. daily. 6. Bentyl 10 mg p.o. q.i.d. p.r.n. as needed fo r abdominal pain. 7. Folic acid 1 mg p.o. daily. 8. Vitamin B12 1000 mcg p.o. daily. 9. Multivitamin once a day. 10. MiraLAX 17 g daily. 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 PAST SURGICAL HISTORY: Neck surgery, right wris t surgery, appendectomy, cholecystectomy, total colectomy. SOCIAL HISTORY: The patient has abused marijuana in the past. Smokes tobacco 1 pack per day. Lives with her mom and her brothe r. FAMILY HISTORY: Significant for mom with oskar peraza. REVIEW OF SYSTEMS: Positive for nausea, vomiting, abdominal pain, melena. Reports unable to take more than 2 or 3 bites of anythi ng without vomiting. Reports low-grade fever over the st week. All remaining review of systems are reviewed and are negative unless mentioned in the HPI. PHYSICAL EXAMINATION: VITAL SIGNS: Blood pressure 105/60, pulse is 63, respiratory rate is 16, PO2 sats are 98% on room air. CONSTITUTIONAL: The patient appears in no distress. She appears pain free. She is alert and oriented to person, place, and time. HEENT: Head is atraumatic and normocephalic. Ey es; eyelids are normal to inspection. Pupils are equa l, round, and reactive to light ENT; mucous membranes are moist. Mouth exam is normal. NECK: Normal range of motion. Trachea is midlin e. RESPIRATORY/CHEST: Breath sounds are clear. No findings of any respiratory distress. CARDIOVASCULAR: Regular rate and rhythm. Heart sounds are normal. ABDOMEN: Mild tenderness to the left lower quad rant. There is some guarding present. Bowel sounds are heard. BACK: Normal range of motion. No tenderness. EXTREMITIES: Upper extremit y inspection is normal. Normal range of motion. Motor strength is normal. Radial pulses are normal. Lower extremity, normal range of motion. Motor strength is normal. Pedal pulses are normal. NEUROLOGIC: The patient is oriented to person, place, and time. Speech is normal. SKIN: Warm, dry, normal in color. PSYCHIATRIC: Has a normal affect. DIAGNOSTIC STUDIES: EKG in the emergency room shows junctional rhythm, beats per minute 72, ST segments, T-w aves, axis is normal. Radiology interpretation, she had a pelvic x-ray, which showe d scattered stool in the colon. Scattered bowel gas pattern, which appears nons pecific. No evidence of any small bowel dilatation. There is a gas-filled loop in the pelvis, appears to represent dilated colon in the pelvis, which is also noted on the prior CT. The patient is post colectomy. No free air is identified unde r the hemidiaphragm. Chemistry unremarkable. Hematology also unremarkable. Hemoglob in is 14, hematocrit is 39.9, and platelet count is 185. PT 12.9, INR 1. Urine is ne gative. Toxicology positive for cannabinoids. Guaiac stool is negative for occult blood. ASSESSMENT AND PLAN: 1. The patient reports that the nausea has improved with Zofran that she received in the emergency room as well as the Marcy l. Dr. Rebolledo was contacted. He will be consulted to follow up with the patient in the morning. IV fluid hydration NS 100 mL per hour. We will keep her n.p.o. fo r now, but will increase to her normal liquid diet as tolerated on ce seen by GI. We will start her on Protonix b.i.d. Continue her Lyrica. Serial H and H. 2. Deep venous thrombosis p rophylaxis. The patient was ambulatory and we will use SCDs and gastrointestinal p rophylaxis with the Protonix. Case discussed with Dr. Armendariz, who agrees to plan. Job ID: [id number] K Dictated by: Isadora Rachel <Electronically signed by Isadora Rachel > 07/22/19 1749 K Dictated Date/Time: 05/22/19 1856 Transcribed Date/Time: 05/23/19 0119 Watch Guard Gate: RAFA 2019-04-28 [facility] Name: CHARLIETONYNAYA CLARK STLSJH 15:32:00-00:[address] : 1960, Age: 59, Sex: SHIR[place] [address] Unit #: [id number], Status: DIS IN [phone] Location: [address] Dictated by: NAYA TAO MD Admission Date: 04/24/19 Report #: [id number] Discharge Date: 04/28/19 CC: CONCEPCION ARMANDO MD, Kimberly PA JAGADEESHAN, VINAYA KUMAR MD DISCHARGE SUMMARY REPORT DATE OF ADMISSION: 04/24/2019 DATE OF DISCHARGE: 04/28/2019 DISCHARGE DISPOSITION: Home. PRIMARY DISCHARGE DIAGNOSES: Chronic abdominal pain, likely functional; urinary tract infection; nausea and vomiting, resolved; severe malnutrition due to poor oral intake; history of familial adenomatous polyposis syndrome with subtotal colectomy in the past. PROCEDURES DONE DURING HOSPI TALIZATION: The patient had a flexible sigmoidoscopy done on 04/26/[address] Shirley Blackwood. This showed ileoanal anastomosis, ileal pouch, and small opening wit hin the ileal pouch that was dilated to 10 mm with a balloon; however, this turne d out to be just a tunnel through the other side of the ileal pouch at the suture po int. There was no evidence of obstruction or stricture. CT abdomen and pelvis witho ut contrast post sigmoidoscopy done showed no evidence of extravasation of contrast to suggest a leak. There was no free fluid, free intraperitoneal gas or colle ction seen in the abdomen or pelvis. Initial abdomen and pelvis CAT scan done on 04/24/2019 on admission showed no evidence of acute process. There was moderate colonic fecal retention at the region of enterorectal anastomosis. MRI of brain sh owed no acute intracranial process. Chest x-ray done showed no acute findings. Urine culture grew E c odalis sensitive to Bactrim. Discharge BUN and creatinine 5 and 0.7. Troponin x2 negative. Lipase was 29 on admission. H and H 12 and 35 , platelet count 154, and MCV is 93 with white count of 3.3. DISCHARGE MEDICATIONS: 1. Omeprazole 40 mg p.o. at bedtime. 2. Lyrica 75 mg twice daily. 3. Ranitidine 300 mg p.o. daily. 4. Albuterol inhaler q.6 hourly p.r.n. 5. Vitamin C 500 mg p.o. daily. 6. Bentyl 10 mg p.o. 4 times daily p.r.n. for ab dominal pain. 7. Folic acid 1 mg p.o. daily. 8. Vitamin B12 1000 mcg p.o. daily. 9. Multivitamin one tablet once daily. 10. Bactrim 1 tablet twice daily for another 3 d ays for UTI. 11. MiraLax 17 g daily. ALLERGIES: OPIOIDS. INPATIENT CONSULT: Dr. Carmelo Blackwood for Gastroe nterology. DISCHARGE PLAN: The patient to follow up with Dr. Rebolledo in 2 weeks and primary care physician in 1 week. BRIEF COURSE DURING HOSPITAL IZATION: The patient initially came in with complaints of abdominal pain, nausea, v omiting, and failure to thrive. She has been steadily losing weight. She had known history of familial adenomatous polyposis coli and had a subtotal colectomy done in the past with ileor ectal anastomosis. Ms. Charlie Wilkins has had a flexible s igmoidoscopy done to rule out ileorectal stricture. This was ruled out. She was found to have had an ileal pouch. The patient has had two CAT scans done, which dean ve not revealed any acute pathology except for stool. She has been passing stool during her stay here. The patient's abdominal pain likely is chronic and mostly functional. She also carries a history of lupus and will have followups with Dr. Rebolledo in 2 weeks to see if her abdominal pain is resolved or is there a compo nent of serositis involved. Her abdominal pain gets completely resolved with Alejo tyl and a prescription for the same has been given. On the day of discharge, the vinnie marin had an episode of panic attack with chest pain and left upper extremity weaknes s. Two sets of troponin were done, which were negative. EKG did not reveal any acut e ST-T wave changes. MRI for the brain done showed no acute CVA. She is tolerating full-liquid diet. She is counseled to drink at least three cans of Ensure along w ith heart healthy liquid diet that she can manage. She is otherwise hemodynamically stable and has been cleared by Gastroenterology for discharge as well. Prior to discharge, she was a mbulating in the hallway. She needs to follow up with Dr. Rebolledo in 10 days for further followup posthospitalization. Please see a [id number] d ocumentation for the day of discharge on [employer]. Job ID: [id number] K Dictated by: NAYA TAO MD <Electronically signed by NAYA TAO MD> 04/30/19 0839 K Dictated Date/Time: 04/28/19 1501 Transcribed Date/Time: 04/28/19 1529 Watch Guard Gate: RAFA 2019-04-28 [facility] Name: TONY GUERRA Carmelo Blackwood STLSJH 14:51:00-00:[address] : 1960, Age: 59, Sex: SHIRA Arza[place] [id number] Unit #: [id number], Status: DIS IN [phone] Location: [address] Dictated by: Carmelo Blackwood MD Admission Date: 04/24/19 Report #: [id number] Discharge Date: 04/28/19 CC: CONCEPCION ARMANDO MD, Kimberly PA Moore, Charles H MD PROGRESS NOTE DATE OF SERVICE: 04/28/2019 SUBJECTIVE: Ms. Guerra had an episode of shortne ss of breath and anxiety this morning. She was evaluated by the hospitalist and EKG was done and chest x-ray, which were negative. She then reported some pos sible weakness on one side, questionably and she did dean ve an MRI of her brain that was negative. She complains of some continued upper abd ominal pain with any solid food, but she appears to be tolerating the Ensures pretty well at this poin t. OBJECTIVE: VITAL SIGNS: Temperature is 98.1, pulse 78, blood pressure 116/68. GENERAL: She is in no acute distress. Alert and oriented x3. LUNGS: Clear to auscultation bilaterally. HEART: Regular rate and rhythm without murmur. ABDOMEN: Soft. Mild tenderness in the upper abd omen without guarding. Bowel sounds are present. EXTREMITIES: No lower extremity edema. LABORATORY DATA: Creatinine 0.75. IMPRESSION: 1. Chronic abdominal pain, which is more postprandial with solid foods in the upper abdomen. This appears to be more of a functional pain. She did have improvement temporarily with dicyclomine. No structural les ion has been identified by endoscopy. She has had prio r colectomy, but there was no true stricture at the ileorectal anastomosis. 2. History of familial adenomatous polyposis sy ndrome. 3. History of systemic lupus erythematous ptosi s. Consideration of serosal involvement can be given if the pain continues and we find no improvement with symptomatic care. RECOMMENDATIONS: 1. Smoking cessation. 2. NSAID avoidance. 3. Dicyclomine as needed. 4. Continue to push a full liquid diet and liquid supplements. She can get the nutrition that she needs from these supplements. 5. Continue pantoprazole daily. 6. When she is tolerating adequate oral intake, she can be discharged with outpatient followup with Dr. Rebolledo. Job ID: [id number] K Dictated by: Carmelo Blackwood MD <Electronically signed by Carmelo Blackwood MD> 0 04/29/19 1706 K Dictated Date/Time: 04/28/19 1405 Transcribed Date/Time: 04/28/19 5998 Watch Guard Gate: RAFA 2019-04-28 [facility] Name: TONY ALBERT VINAYA LSJH 12:31:00-00:[address] : 1960, Age: 59, Sex: A[place] [address] Unit #: [id number], Status: ADM IN [phone] Location: T4-B [facility] Report Dict : NAYA TAO MD Admission Date: 04/24/19 Report #: [id number] Discharge Date: CC: Hospitalist Progress Note - Subjective Encounter Date: 04/28/19 Encounter Time: 08:30 Subjective: code faustino was called this for chest pain, palp with hr of 120's later pt developed left ue weakness chest pain was worse with deep breathing has prior h/o panic attacks/anxiety issues - Objective Vital Signs Weight: Vital Signs (12 hours) Pulse Resp Pulse Ox 04/28/19 08:00 95 04/28/19 07:45 93 24 H 98 04/28/19 07:25 98 Weight Admit Weight 88 lb Weight 87 lb 4.8 oz I O: 04/27/19 04/28/19 04/29/19 06:59 06:59 06:59 Intake Total 1895 2524 350 Output Total 50 50 Balance 1845 2474 350 Result Diagrams: 04/28/19 08:37 04/28/19 08:37 ROS - Medication Medications: Active Medications Generic Name Dose Route Start Last Admin Trade Name Freq PRN Reason Stop Dose Admin Acetaminophen 650 mg 04/24/19 19:00 04/28/19 04: 14 Tylenol PO 650 mg Q4H PRN Administration Headache/Fever/Mild Pain (1-3) Aspirin 81 mg 04/28/19 10:30 04/28/19 11:27 Ecotrin PO 04/28/19 13:00 81 mg NOW REUBEN Administration Dicyclomine HCl 10 mg 04/26/19 17:32 04/28/19 04 :14 Bentyl PO 10 mg QID PRN Administration abdominal pain Dextrose/Sodium Chloride 1,000 mls @ 75 mls/hr 0 04/24/19 19:15 04/28/19 02:24 D5 1/2 Ns IV 1,000 mls .[id number] REUBEN Administration Lactulose 30 gm 04/24/19 19:03 04/25/19 08:11 Lactulose PO 30 gm QID PRN Administration Constipation Ondansetron HCl 4 mg 04/24/19 19:00 04/27/19 19: 59 Zofran IVP 4 mg Q6H PRN Administration Nausea/Vomiting Pantoprazole Sodium 40 mg 04/24/19 21:00 9 19:59 Protonix PO 40 mg HS REUBEN Administration Pregabalin 75 mg 04/24/19 21:00 04/28/19 08:30 Lyrica PO 75 mg BID REUBEN Administration Sodium Chloride 10 ml 04/25/19 21:00 04/28/19 08 :31 Flush - Normal Saline IVF Not Given Q12HR [facility] Trimethoprim/Sulfamethoxazole 1 tab 04/27/19 09: 00 04/28/19 08:31 Bactrim Ds PO 1 tab BID REUBEN Administration Zolpidem Tartrate 5 mg 04/25/19 09:11 04/27/19 1 9:59 Ambien PO 5 mg HSPRN PRN Administration Insomnia - Exam NAD, awake alert Eye: PERRL, anicteric sclera ENT: no oropharyngeal lesions, moist mucosa Neck: supple, no JVD Heart: RRR, no murmur Respiratory: no wheezes, no rales, no ronchi Gastrointestinal: soft, non-tender, normal bowel sounds Extremities: no cyanosis, no clubbing Neurological: CN's grossly intact, no focal defi cits Psychiatric: A O x 3 Hosp A/P (1) Abdominal pain Code(s): R10.9 - UNSPECIFIED ABDOMINAL PAIN Stat us: Acute Qualifiers: Abdominal location: general ized Qualified Code(s): R10.84 - Generalized abdominal pain (2) h/o familial adenomatous polyposis syndr Status: Chronic (3) UTI (urinary tract infection) Status: Acute Qualifiers: Urinary tract infection typ e: acute cystitis Hematuria presence: without hematuria Qualified Code(s): N30.00 - Acute cystitis without hematur ia (4) Nausea vomiting Code(s): R11.2 - NAUSEA WITH VOMITING, UNSPECIFI ED Status: Resolved (5) Severe malnutrition Code(s): E43 - UNSPECIFIED SEVERE PROTEI N-CALORIE MALNUTRITION Status: Chronic (6) Chest pain Code(s): R07.9 - CHEST PAIN, UNSPECIFIED Status: Resolved Qualifiers: Chest pain type: chest pain on breathing Qualified Code(s): R07.1 - Chest pain on breathing; R07.81 - Pleurodynia - Plan trop x2 is -ve, MRI is -ve for ac cva had panic attack this am which has resolved now full liq diet, ensure tid d/w Dr. Blackwood, pt will f/u with will dc home this afternoon no evidence of ileorectal stricture, has ileal p ouch abd pain better with bentyl encourage po intake continue protonix, lyrica and lactulose prn <Electronically signed by Naya Tao MD> 04/28/19 1235 2019-04-27 [facility] Name: TONY ALBERT NAYA TAO LSJH 12:44:00-00:[address] : 1960, Age: 59, Sex: SHIRA Arz[place] [address] Unit #: [id number], Status: ADM IN [phone] Location: [address] Report Dict Dr.: NAYA TAO MD Admission Date: 04/24/19 Report #: [id number] Discharge Date: CC: Hospitalist Progress Note - Subjective Encounter Date: 04/27/19 Encounter Time: 09:00 Subjective: abd pain is better this am is not eating much, counselled to try ensure can s no nausea, is amb in room - Objective Vital Signs Weight: Vital Signs (12 hours) Temp Pulse Resp BP Pulse Ox 04/27/19 11:33 98.3 F 60 16 116/69 97 04/27/19 08:00 98.1 F 53 L 16 112/72 99 04/27/19 04:57 97.9 F 50 L 16 92/54 L 96 Weight Admit Weight 88 lb Weight 86 lb 12.8 oz I O: 04/26/19 04/27/19 04/28/19 06:59 06:59 06:59 Intake Total 2084 1895 Output Total 100 50 Balance 19845 Result Diagrams: 04/25/19 05:25 04/25/19 05:25 ROS - Medication Medications: Active Medications Generic Name Dose Route Start Last Admin Trade Name Freq PRN Reason Stop Dose Admin Acetaminophen 650 mg 04/24/19 19:00 04/26/19 20: 22 Tylenol PO 650 mg Q4H PRN Administration Headache/Fever/Mild Pain (1-3) Dicyclomine HCl 10 mg 04/26/19 17:32 04/27/19 07 :32 Bentyl PO 10 mg QID PRN Administration abdominal pain Dextrose/Sodium Chloride 1,000 mls @ 75 mls/hr 0 04/24/19 19:15 04/27/19 10:09 D5 1/2 Ns IV 1,000 mls .[id number] REUBEN Administration Lactulose 30 gm 04/24/19 19:03 04/25/19 08:11 Lactulose PO 30 gm QID PRN Administration Constipation Ondansetron HCl 4 mg 04/24/19 19:00 04/27/19 07: 36 Zofran IVP 4 mg Q6H PRN Administration Nausea/Vomiting Pantoprazole Sodium 40 mg 04/24/19 21:00 9 20:22 Protonix PO 40 mg HS REUBEN Administration Pregabalin 75 mg 04/24/19 21:00 04/27/19 07:32 Lyrica PO 75 mg BID REUBEN Administration Sodium Chloride 10 ml 04/25/19 21:00 04/27/19 07 :33 Flush - Normal Saline IVF 10 ml Q12HR REUBEN Administration Trimethoprim/Sulfamethoxazole 1 tab 04/27/19 09: 00 04/27/19 08:31 Bactrim Ds PO Not Given BID [facility] Zolpidem Tartrate 5 mg 04/25/19 09:11 04/26/19 2 0:22 Ambien PO 5 mg HSPRN PRN Administration Insomnia - Exam NAD, awake alert Eye: PERRL, anicteric sclera ENT: no oropharyngeal lesions, moist mucosa Neck: supple, no JVD Heart: RRR, no murmur Respiratory: no wheezes, no rales Gastrointestinal: soft, non- distended, normal bowel sounds, no guarding, no rigidity Gastrointestinal - other findings: mild tenderne ss in right LQ Extremities: no cyanosis, no edema Neurological: CN's grossly intact, no focal defi cits Psychiatric: normal affect, A O x 3 Hosp A/P (1) Abdominal pain Code(s): R10.9 - UNSPECIFIED ABDOMINAL PAIN Stat us: Acute Qualifiers: Abdominal location: general ized Qualified Code(s): R10.84 - Generalized abdominal pain (2) h/o familial adenomatous polyposis syndr Status: Chronic (3) UTI (urinary tract infection) Status: Acute Qualifiers: Urinary tract infection typ e: acute cystitis Hematuria presence: without hematuria Qualified Code(s): N30.00 - Acute cystitis without hematur ia (4) Nausea vomiting Code(s): R11.2 - NAUSEA WITH VOMITING, UNSPECIFI ED Status: Resolved (5) Severe malnutrition Code(s): E43 - UNSPECIFIED SEVERE PROTEI N-CALORIE MALNUTRITION Status: Chronic - Plan no evidence of ileorectal stricture, has ileal p ouch abd pain better with bentyl encourage po intake continue iv fluids, protonix, lyrica and lactulo se prn dc plan when oral intake improves <Electronically signed by Naya Tao MD> 04/27/19 1246 2019-04-27 [facility] Name: TONY GUERRA Carmelo LSJH 10:59:00-00:[address] : 1960, Age: 59, Sex: [place] [address] Unit #: [id number], Status: ADM IN [phone] Location: [address] Dictated by: Carmelo Blackwood MD Admission Date: 04/24/19 Report #: [id number] Discharge Date: CC: CONCEPCION ARMADNO MD, Kimberly PA Moore, Charles H MD PROGRESS NOTE DATE OF SERVICE: 04/27/2019 SUBJECTIVE: Ms. Guerra feels much better today. I evaluated her last night and she was writhing in pain with s evere diffuse cramping abdominal pain that started about 5 minutes after eating some solid food. This morning, she feels better, but still sore, more in her lower abdomen. She was given dicyclomine last night with improvement in her pain. OBJECTIVE: VITAL SIGNS: Temperature 98.1, pulse 53, blood pressure 112/72. GENERAL: She is in no acute distress. She is al ert and oriented x3. EYES: Have no scleral icterus. LUNGS: Clear to auscultation bilaterally. HEART: Regular rate and rhythm without murmur. ABDOMEN: Soft. Mild tenderness in the lower abd omen without guarding. Bowel sounds are present. EXTREMITIES: No lower extremity edema. She is t hin and frail. IMPRESSION: 1. Postprandial lower to diffuse crampi ng abdominal pain. Originally, we were thinking that this was rela lucy to constipation above her ileorectal anastomosis. However, her bowel has been cleared with laxatives and she has still has ongoing pain that now seems to be more postprandial. En doscopy yesterday showed no stricture at the ileorectal anastomosis. Followup CT scan following the flexible sigmoidoscopy yesterday david mon no evidence of perforation and now her pain is better today. I reviewed the contrast enhanced CT scan s with Radiology. The celiac arteries and SMA appear pat ent without narrowing to suggest risk for ischemia as a cause of her abdominal pain . At this point, her pain seems to be more functional in nature. 2. She did have subcentimet er lesions too small to characterize in her liver on prior imaging. Subsequent C T scans with different venous phase contrast did not show these. These will requ yandel no further evaluation unless she has progressive enlargement on future imaging of any particular liver mass or lesion. 3. History of familial kaylen omatous polyposis, status post colectomy with ileorectal anastomosis. 4. She has a history of sys temic lupus erythematosus. This has not been treated with immunosuppression per her report due to the history of familial adenomatous polyposis. Serosal involvem ent of lupus could be a consideration for her abdominal pain. However, this is not likely. I would see how she does with the antispasmodic medications and avoidance o f nonsteroidal antiinflammatory drugs and then consider further evaluation of the lupus from there in t he future. RECOMMENDATIONS: 1. Smoking cessation. 2. Avoid NSAIDs. She can ta ke Tylenol instead. She has had problems with chronic pain, but cannot take opioi ds and has been on chronic NSAIDs for pain instead. At this point, she needs to transition to Tylenol or acetaminophen. 3. Dicyclomine 10 mg as needed for abdo harinder cramps. She did have significant improvement in her pain with the dicyclomine ye . 4. Once she is tolerating diet adequate ly, then she can likely discharge home tomorrow or the next day to follow up with Dr. Guzman. 5. Continue pantoprazole 40 mg daily given the chronic NSAID use. Job ID: [id number] K Dictated by: Carmelo Blackwood MD <Electronically signed by Carmelo Blackwood MD> 0 04/27/19 1223 K Dictated Date/Time: 04/27/19 1027 Transcribed Date/Time: 04/27/19 1048 Watch Guard Gate: RAFA 2019-04-26 [facility] Name: TONY GUERRA Charles STLSJH 14:34:00-00:[address] : 1960, Age: 59, Sex: F [place] [address] Unit #: [id number], Status: ADM IN [phone] Location: T4-B 4423-P Dictated by: Carmelo Blackwood MD Admission Date: 04/24/19 Report #: [id number] Discharge Date: CC: CONCEPCION ARMANDO MD, Kimberly PA Moore, Charles H MD OPERATIVE NOTE DATE OF PROCEDURE: 04/26/2019 PROCEDURE PERFORMED: Flexible sigmoidoscopy. DESCRIPTION OF PROCEDURE: I nformed consent was obtained from the patient. She was sedated with total intraven ous anesthesia. The rectal exam was performed and was normal. The upper endoscope was advanced easily to the distal ileum. There was stool staining in the spangler of the ileal pouch. There was an ileal rectal anastomosis/ileal anal anas tomosis. There was a suture line in the ileum, where the creation of the ileal pouch was present. The opening from the ileal pouch to the terminal ileum was difficul t to identify. Only a small opening could be identified ultimately through which a 10-mm balloon dilator was passed. Then, the balloon was passed through without resi stance. The balloon was inflated to 10 mm and deflated. At this point, the tip of t he dilator could then be seen still within the ileal pouch that this was a loop within the suture line. This was not dilated further. An extensive amount of time was then performed searching again for the actual ileum to ileal pouch opening. Fin ally, it was identified and the scope was passed through easily to the distal ileum. The mucosa of the distal ileum was normal. The ileum to ileal pouch opening was not strictured or ti ght. There was no evidence of obstruction above that site. IMPRESSION: 1. Ileal anal anastomosis. 2. Ileal pouch. 3. Small opening within the ileal pouch that was dilated to 10 mm with a balloon. However, this turns out to just tunnel through to the other side of the ileal pouch at a suture point. 4. The ileum to the ileal p ouch opening ultimately was identified and was found to have no evidence of obstruction or stricture. RECOMMENDATIONS: 1. Scheduled MiraLAX daily. 2. I will repeat a CT to ru le out any complication with the dilation, however, this all appears to be within the pouch. Job ID: [id number] K Dictated by: Carmelo Blackwood MD <Electronically signed by Carmelo Blackwood MD> 0 04/27/19 0805 K Dictated Date/Time: 04/26/19 1307 Transcribed Date/Time: 04/26/19 9629 Watch Guard Gate: MODL 2019-04-26 [facility] Name: ANTONIO SANGEETHANAYA GARAYLSJH 13:26:00-00:[address] : 1960, Age: 59, Sex: SH[place] [address] Unit #: [id number], Status: ADM IN [phone] Location: [address] Report Dict Dr.: NAYA TAO MD Admission Date: 04/24/19 Report #: [id number] Discharge Date: CC: Hospitalist Progress Note - Subjective Encounter Date: 04/26/19 Encounter Time: 10:45 Subjective: no abd pain or nausea. Is npo for scope today - Objective Vital Signs Weight: Vital Signs (12 hours) Temp Pulse Resp BP Pulse Ox 04/26/19 08:45 97 04/26/19 08:00 97.9 F 61 16 138/84 97 Weight Admit Weight 88 lb Weight 88 lb 11.777 oz I O: 04/25/19 04/26/19 04/27/19 06:59 06:59 06:59 Intake Total 780 2084 Output Total 100 Balance 780 1984 Result Diagrams: 04/25/19 05:25 04/25/19 05:25 ROS - Medication Medications: Active Medications Generic Name Dose Route Start Last Admin Trade Name Freq PRN Reason Stop Dose Admin Acetaminophen 650 mg 04/24/19 19:00 04/25/19 18: 11 Tylenol PO 650 mg Q4H PRN Administration Headache/Fever/Mild Pain (1-3) Dextrose/Sodium Chloride 1,000 mls @ 75 mls/hr 0 04/24/19 19:15 04/26/19 10:49 D5 1/2 Ns IV Not Given .[id number] REUBEN Ceftriaxone Sodium 1 gm/ 100 mls @ 200 mls/hr 10:00 04/26/19 08:47 Sodium Chloride IVPB 100 mls Q24HR REUBEN Administration Lactulose 30 gm 04/24/19 19:03 04/25/19 08:11 Lactulose PO 30 gm QID PRN Administration Constipation Ondansetron HCl 4 mg 04/24/19 19:00 04/25/19 18: 11 Zofran IVP 4 mg Q6H PRN Administration Nausea/Vomiting Pantoprazole Sodium 40 mg 04/24/19 21:00 9 20:10 Protonix PO 40 mg HS REUBEN Administration Pregabalin 75 mg 04/24/19 21:00 04/26/19 08:46 Lyrica PO 75 mg BID REUBEN Administration Sodium Chloride 10 ml 04/25/19 21:00 04/26/19 08 :47 Flush - Normal Saline IVF 10 ml Q12HR REUBEN Administration - Exam NAD, awake alert Eye: PERRL, anicteric sclera ENT: normocephalic atraumatic, no oropharyngeal lesions Neck: supple, no JVD Heart: RRR, no rubs Respiratory: no wheezes, no rales Gastrointestinal: soft, non-tender, non-distende d, normal bowel sounds Extremities: no clubbing, no edema Neurological: CN's grossly intact, no focal defi cits Musculoskeletal: normal tone Psychiatric: normal affect, A O x 3 Hosp A/P (1) ileorectal stricture Status: Acute (2) h/o familial adenomatous polyposis syndr Status: Chronic Plan: prior colectomy (3) UTI (urinary tract infection) Status: Acute Qualifiers: Urinary tract infection typ e: acute cystitis Hematuria presence: without hematuria Qualified Code(s): N30.00 - Acute cystitis without hematur ia (4) Abdominal pain Code(s): R10.9 - UNSPECIFIED ABDOMINAL PAIN Stat us: Acute Qualifiers: Abdominal location: general ized Qualified Code(s): R10.84 - Generalized abdominal pain (5) Nausea vomiting Code(s): R11.2 - NAUSEA WITH VOMITING, UNSPECIFI ED Status: Resolved (6) Severe malnutrition Code(s): E43 - UNSPECIFIED SEVERE PROTEI N-CALORIE MALNUTRITION Status: Chronic - Plan for flexible sigmoidoscopy today continue iv fluids, protonix, lyrica and lactulo se prn has not passed any solid stool yet <Electronically signed by Naya Tao MD> 04/26/19 1331 2019-04-25 [facility] Name: TONY GUERRA Charles STLSJH 21:27:00-00:[address] : 1960, Age: 59, Sex: [place] [address] Unit #: [id number], Status: ADM IN [phone] Location: [address] Attending Phys: Concepcion Armando MD Discharge Date: Report #: [id number] Consulting Phys: Carmelo Blackwood MD CC: CONCEPCION ARMANDO MD, Kimberly PA Moore, Charles H MD CONSULTATION REPORT DATE OF CONSULTATION: 04/25/2019 CHIEF COMPLAINT: Abdominal pain, distention, an d constipation. HISTORY OF PRESENT ILLNESS: Ms. Guerra is a 59-year-old woman with a history of familial adenomatous polypo sis syndrome, who has been followed by Dr. Rebolledo as an outpatient. She came in [facility] in October of this year with nausea and vomiting and abdominal pain. Dr. Rebolledo p erformed EGD and colonoscopy on 11/13/2018. The upper endoscopy was unremarkable. The colonoscopy showed stool retained in the rectum with a tight anastomosis between the il eum and rectum. The scope could not be passed through the anastomosis. She had a gastr ic emptying scan, which was unremarkable. Biopsies of t he esophagus were normal. The patient complained of anorexia and a 35 to 40-pound weight loss over the last year. She has had no obvious source for the weig ht loss identified. She had been smoking marijuana, and Dr. Rebolledo advised cessation of marijuana in case she has a cannabis hyperemesis syndrome related to the chr onic nausea and vomiting. Over the last three weeks, she has had increased abdominal distention and constipation. She took three bottles of magnesium citrate over the last week and ultimately ended up just passing liquidy stool, but due to ongoing abdominal kayleen n and discomfort, she came back to the emergency room last night. She was just passing liquid stool at that time. She has been taking stool softeners with Colace. She tried enemas without help. She had a CT scan performed in the ergency room yesterday afternoon, which showed moderate small bowel fecal retention above the ileorecta l anastomosis. She was given lactulose last night and th is morning, and is just passing out liquid yellow stool with no substance. She has had no blood in the stool. Still has nausea but no vomiting today. No fever. S he has been started on antibiotics for urinary tract infection. PAST MEDICAL HISTORY: Familial adenomatous poly posis syndrome, acid reflux, arthritis, peptic ulcer disease, and lupus. PAST SURGICAL HISTORY: Appe ndectomy, lysis of adhesions, hemorrhoidectomy, and subtotal colectomy. HABITS: She has been a smoker, pack a d ay. She has been smoking marijuana. No alcohol. FAMILY HISTORY: Negative for GI malignancy. ALLERGIES: CODEINE AND DEMEROL. OUTPATIENT MEDICATIONS: 1. Lyrica 75 mg twice daily. 2. Prilosec once daily. REVIEW OF SYSTEMS: Negative x10 systems reviewed except as stated in the history of present illness. PHYSICAL EXAMINATION: VITAL SIGNS: Temperature 98.1, pulse 62, and bl ood pressure 115/58. GENERAL: She is in no acute distress. She is alert and oriented x3. She is very thin and had muscle wasting. HEENT: Eyes have no scleral icterus. Oropharynx is clear without lesions. No cervical or supraclavicular lymphadenopathy. LUNGS: Clear to auscultation bilaterally. HEART: Regular rate and rhythm without murmur. ABDOMEN: Soft, minimal tenderness in th e epigastric region and lower abdomen. Bowel sounds are present. EXTREMITIES: No lower extremity edema. RECTAL: Reveals an empty rectal vault. LABORATORY DATA: White bloo d cell count 4.0, hemoglobin 12.2, and platelets 162. Creatinine 0.68, bilirubin 0.4, AST 20, ALT 12, alkaline phosphatase 69, and albumin 4.4. IMPRESSION: 1. Epigastric and lower abd ominal pain associated with abdominal distention and constipation. The constipat ion has been a more recent progressive problem. She has no stool in the rectal vaul t and has been passing liquidy stools with the laxatives; however, the CT scan still showed formed stool above the anastomosis. Colonoscopy back in November showed strict ure at the ileorectal anastomosis that was too tight to pass the endoscope through. She might have stri cturing of the ileorectal anastomosis leading to impa ction above that area. The smoking and NSAID use could certainly worsen this. 2. History of familial adenomatous polyposis sy ndrome, status post subtotal colectomy. She has undergon e surveillance upper endoscopy and colonoscopy in November by Dr. Rebolledo. 3. Chronic nausea. This could be related to bow el distention related to the ileorectal anastomosis stri cture. She could have cannabis hyperemesis syndrome. RECOMMENDATIONS: 1. Stop NSAIDs. 2. Stop smoking. 3. Continue proton pump inhibitor daily. 4. I will plan for flex sig tomorrow to see if we can balloon dilate the ileocolonic stricture. Job ID: [id number] K Dictated by: Carmelo Blackwood MD <Electronically signed by Carmelo Blackwood MD> 0 04/25/195 K Dictated Date/Time: 04/25/191806 Transcribed Date/Time: 04/25/192123 Watch Guard Gate: KYRAL 2019-04-25 [facility] Name: HLOA GUERRA VIVIANA CARTER [facility]LSJ[facility] 15:50:00-00:00 [address] [employer] : 1960, Age: 59, Sex: F [place] [address] Unit #: [id number], Status: ADM IN [phone] Location: T4-B [id number] Report Dict DrKiersten: VIVIANA BAIN MD Admission Date: 04/24/19 Report #: [id number] Discharge Date: CC: Hospitalist Progress Note - Subjective Encounter Date: 04/25/19 Encounter Time: 11:00 Subjective: Patient seen and examined. p t is NPO, she has liquid BM No new complaints. No overnight events - Objective Vital Signs Weight: Vital Signs (12 hours) Temp Pulse Resp BP Pulse Ox 04/25/19 13:40 86 16 97 04/25/19 12:04 98.0 F 55 L 16 120/73 99 04/25/19 09:40 96 04/25/19 07:45 97.8 F 59 L 16 108/70 96 04/25/19 04:00 97.5 F L 64 16 107/67 96 Weight Admit Weight 88 lb Weight 89 lb I O: 04/24/19 04/25/19 04/26/19 06:59 06:59 06:59 Intake Total 780 Balance 780 Result Diagrams: 04/25/19 05:25 04/25/19 05:25 Radiology Reviewed by me: Yes (xray abdomen note d) ROS - Review of Systems Constitutional: reports: maye lozano. denies: fever, chills, sweats, malaise, other Eyes: denies: pain, vision c hange, conjunctivae inflammation, eyelid inflammation, redness, other ENT: denies: ear pain, ear d ischarge, nose pain, nose discharge, nose congestion, mouth pain, mouth swelling, throat pain, throat swelling, other Respiratory: denies: cough, dry, shortness of breath, hemoptysis, SOB with excertion, pleuritic pain , sputum, wheezing, other Cardiovascular: denies: ches t pain, palpitations, orthopnea, paroxysmal noc. dyspnea, edema, light headedness, other Gastrointestinal: reports: n ausea, diarrhea. denies: vomitting, abdominal pain, constipation, melena, hematochezia, other Genitourinary: denies: dysur ia, frequency, incontinence, hematuria, retention, other Musculoskeletal: denies: nec k pain, shoulder pain, arm pain, back pain, hand pain, leg pain, foot pain, other - Medication Medications: Active Medications Generic Name Dose Route Start Last Admin Trade Name Freq PRN Reason Stop Dose Admin Dextrose/Sodium Chloride 1,000 mls @ 75 mls/hr 0 04/24/19 19:15 04/25/19 08:08 D5 1/2 Ns IV 1,000 mls .[id number] REUBEN Administration Ceftriaxone Sodium 1 gm/ 100 mls @ 200 mls/hr 10:00 04/25/19 09:57 Sodium Chloride IVPB 100 mls Q24HR REUBEN Administration Lactulose 30 gm 04/24/19 19:03 04/25/19 08:11 Lactulose PO 30 gm QID PRN Administration Constipation Ondansetron HCl 4 mg 04/24/19 19:00 04/25/19 09: 56 Zofran IVP 4 mg Q6H PRN Administration Nausea/Vomiting Pantoprazole Sodium 40 mg 04/24/19 21:00 9 20:00 Protonix PO 40 mg HS REUBEN Administration Pregabalin 75 mg 04/24/19 21:00 04/25/19 08:08 Lyrica PO 75 mg BID REUBEN Administration - Exam NAD, awake alert Eye: PERRL, anicteric sclera ENT: normocephalic atraumatic, no oropharyngeal lesions Neck: supple, symmetric, no JVD Heart: RRR, no murmur, no gallops Respiratory: CTAB, no wheezes, no rales Gastrointestinal: soft, non-tender, non-distende d Extremities: no cyanosis, no clubbing, no edema Skin: normal turgor, no lesions Neurological: CN's grossly intact, no focal defi cits, no new deficit Musculoskeletal: normal tone, normal strength Psychiatric: normal affect, normal behavior Hosp A/P (1) UTI (urinary tract infection) Status: Acute (2) Abdominal pain Code(s): R10.9 - UNSPECIFIED ABDOMINAL PAIN Stat us: Acute (3) Nausea vomiting Code(s): R11.2 - NAUSEA WITH VOMITING, UNSPECIFI ED Status: Acute (4) Severe malnutrition Code(s): E43 - UNSPECIFIED SEVERE PROTEIN-CALORI E MALNUTRITION Status: Acute - Plan old records reviewed/req, continue antibiotics GI consulted will start rocephin for UTI medication reviewed as above symptomatic treatment diet advancement as per GI nutritional support <Electronically signed by Viviana Bain MD> 04/25/19 1550 2019-04-24 [facility] Name: TONY GUERRA DENA [facility]LS[facility] 19:48:00-00:[address] : 1960, Age: 59, Sex: SHIR[place] [address] Unit #: [id number], Status: ADM IN [phone] Location: [address] Dictated by: CONCEPCION ARMANDO MD Admission Date: 04/24/19 Report #: [id number] Discharge Date: CC: CONCEPCION ARMANDO MD, Kimberly PA HISTORY AND PHYSICAL REPORT CHIEF COMPLAINT: "Stomach problems." HISTORY OF PRESENT ILLNESS: A 59-year-old female with history of familial adenomatous polyposis, statu s post colectomy, severe protein-calorie malnutrition, Lupus, who presents to the emergency room per e instruction of her senior compensation consultant with a co mplaint of abdominal pain. The patient states that over the past 3 weeks that things "are not moving." She states that she has some liquid stool, however, no significa nt solid stool, feels bloated, has early satiety and cramping, intermittent abdom inal pain. She has tried three bottles of magnesium citrate over this time perio d, Colace two tablets at night over the past 2 weeks, and two enemas without any c hange. She has nausea, vomiting, and increase of reflux symptoms, reports that the episodes are becoming more frequent with time. Precipitating factors are so lid food intake, relieving factors she reports [place] shakes and ice cream. She ta kes Aleve 1 or 2 times per day for the arthritis-type pain that she associates wit h lupus. She denies any dyspnea, dysuria, or hematuria. The patient is normally followed by Dr. Rebolledo of Gastroenterology. Her last hospitalization here was in March for persistent nausea, vomiting, severe malnutrition, and seizures, and she was discharg ed to home. In the emergency room, the p atient received 1 L of IV fluid and hospitalist called. PAST SURGERY HISTORY: 1. Familial adenomatous polyposis, status post c olectomy. 2. Kidney stones. 3. Liver cyst. 4. Lupus. 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 PAST SURGICAL HISTORY: 1. Neck. 2. Right wrist. 3. Appendectomy. 4. Cholecystectomy. 5. Total colectomy. SOCIAL HISTORY: She uses mar ijuana 2 to 3 times per day, smokes tobacco one pack per day, lives with her mom and brother. Her mom, Samra Bennett, is her surrogate decision maker and she is a full code. FAMILY HISTORY: Significant for mom with melanom a. REVIEW OF SYSTEMS: Positive for early satiety, cough, racing heart intermittently. Negative for dyspnea, dysuri a, or hematuria. All remaining review of systems are reviewed and negative. MEDICATIONS AT HOME: 1. Medication for reflux, she does not recall th e name. 2. Lyrica 75 mg b.i.d. 3. Prilosec at bedtime. PHYSICAL EXAMINATION: VITAL SIGNS: Her blood press ure is 134/89, pulse 79, respirations 15, temperature 97.9, sats 100% on room air. GENERAL: Awake, alert, responsive, cachectic bibiana earing female, in no apparent distress, able to answer questions. HEENT: Her pupils are equal and round. Oral muco sa is pink and moist. NECK: Supple, nontender. LYMPHATICS: No palpable cervical or supraclavicu lar lymphadenopathy. LUNGS: Clear to auscultation bilaterally. HEART: Normal S1 and S2. Regular rate and rhythm . No significant murmur. ABDOMEN: Soft. Present bowel sounds. Mild tenderness to palpation throughout. No rebound or guarding and no palpable abnormality. SKIN: No exanthems. VASCULAR: 2+ dorsalis pedis pulses. NEURO: No focal deficits. PSYCH: Appears euthymic. LABORATORY DATA: Personally reviewed. CBC; 5.8, 13.3, 38.3, and 193. Renal panel; 138, 3.9, 104, 27, 10, 0.76, and 84 . LFTs are negative. Lipase is 29. Urinalysis; specific gravity 1.053, otherwise ne gative. CT of the abdomen and pelvis is personally reviewed, which shows moderate fecal retention at the enterorecta l anastomosis, postoperative changes, scattered vascular calcifications. Overall, negative for any acute process. IMPRESSION: 1. Nausea, vomiting, abdominal pain in a patient with prior multiple abdominal surgeries to include a total colectomy with fecal retention, however, no signs of bowel obstruction. 2. Severe protein-calorie malnutrition. 3. Lupus. 4. Neuropathy, feet. 5. History of renal stones, asymptomatic. 6. History of liver cysts. PLAN: 1. Admission to the hospital. 2. I contacted Dr. Posadas , who is on-call for GI, who recommended a trial of lactulose to help with passi ng the stool. We will start this tonight and consult GI, Dr. Rebolledo in the morning. 3. IV fluid hydration with dextrose containing f luids. 4. Continuing her Lyrica, the PPIs, and managing any nausea and vomiting. 5. We will continue the Aleve as the patient rep orts it is one of the few medications she can take for chronic pain. 6. Further recommendations per GI. 7. Dietitian consult given the severe malnutriti on. 8. DVT prophylaxis. The patient is ambulatory an d will use SCDs. 9. GI prophylaxis not indica lucy. The patient is on a PPI. We will continue that. 10. Code status is full, and surrogate decision maker is noted above. 11. I reviewed the plan of c are with the patient, who demonstrates understanding, no questions or further needs at the end of evaluat ion. 12. The patient is at high r isk given age, comorbidities, and current presentation. Job ID: [id number] K Dictated by: CONCEPCION ARMANDO MD <Electronically signed by CONCEPCION ARMANDO MD> 04/11 12/28 2325 K Dictated Date/Time: 04/24/191912 Transcribed Date/Time: 04/24/191943 Watch Guard Gate: RAFA 2019-03-26 [facility] Name: TONY GUERRA [facility] 02:28:00-00:00 [employer] : 1960, Age: 58, Sex: SHIRA [place]ough [address] Unit #: [id number], Status: DIS IN [phone] Location: [address] [place] [address] Dictated by: DERRELL ADAMSON MD Admission Date: 03/15/19 Report #: [id number] Discharge Date: 03/25/19 CC: DERRELL ADAMSON MD, Kimberly PA KEATON, TONI W MD DISCHARGE SUMMARY REPORT DATE OF ADMISSION: 03/15/2019 DATE OF DISCHARGE: 03/25/2019 CONSULTANTS: Dr. Posadas, Gastrointestinal Service. Dr. Rebolledo, Gastrointestinal Service and Dr. Simon, Gastrointestinal Service. FINAL DIAGNOSES: 1. Persistent nausea and vomiting, subsided. 2. Marijuana use, suspected cannabinoid hyperemesis syndrome with extensive fairly recent workup included nega tive EGD, colonoscopy, CT of the abdomen, CT of the head, gastric emptying studies, and labs. 3. Severe malnutrition. 4. History of lupus with negative markers. 5. History of seizures. 6. Familial adenomatous polyposis. 7. Hiatal hernia. 8. Status post total colectomy with J-pouch for mation. HOSPITAL COURSE: The patien heather was a 58-year-old female, who presented to the emergency room after dean ving a seizure in the lobby of the hospital just prior to arrival. Apparently, she se ized 3 times after she arrived in the emergency room 5 minutes apart and less than 1 minute. Seizures described by witnessed. She was at the hospital to get the pre liminary paperwork and contrast for an MRI which was scheduled for her increased weight loss and inability to eat or drink much without vomiting and she had weight loss, nausea, and vomiting on outpatient basis and she was seen by Dr. Rebolledo in the GI Clinic and she had multiple tests done for diagnostic purposes, but no thing was revealing any problem. She has a history of seizures in the past, but a t least for the last 2 years, she did not have any. Given Ativan and bolus of fosphenytoin and she remained seizure free after medications. CT of the brain showed no mass or bleed or any significant intracranial process. The CT of the cervical sp ine showed no fracture or subluxation. Only postsurgical changes related to anterior cervical fusion at C5-C6. CT angiogram of the head and neck was ne gative. Blood work was unremarkable. Toxicology ca me back positive for cannabinoids. The past medical history is positive for lupus, FAP, hiatal stephani ia, and weight loss. She was admitted to the Stroke Unit for further workup. She was seen by Dr. Garcia, who recommended [facility] to continue. Followu p MRI of the brain showed mild chronic ischemic white matter tomlin es. The patient was severely malnourished. She was seen by Dr. Posadas who was co vering for Dr. Rebolledo. The patient was started on TPN after the midline was place d. She tolerated that without any problems. She is able to keep shakes down in her stomach, but any solid food was each time she ate coming out back. The patient was placed on small dose of Reglan. Subsequently, she stopped vomiting and she wa s able to tolerate solid food without any nausea or vomiting. Today, she looks significantly better after few days of TPN and she is going to be discharged home with home health. DIET: She will stay on regular diet. ACTIVITIES: As tolerated. MEDICATIONS: At the time of discharge: 1. Zantac 300 mg once a day. 2. Keppra 500 mg twice a day. 3. Metoclopramide 5 mg a.c. and at bedtime. 4. Tylenol p.r.n. as needed. 5. Omeprazole 40 mg once a day. FOLLOWUP: She will follow u p with the primary doctor in [address] Rebolledo in 2 weeks. DISCHARGE TIME SPENT: Less than 30 minutes. Job ID: [id number] K Dictated by: DERRELL ADAMSON MD <Electronically signed by DERRELL ADAMSON MD> 03/26/19 0715 K Dictated Date/Time: 03/25/19 1306 Transcribed Date/Time: 03/26/19 0224 Watch Guard Gate: RAFA 2019-03-25 [facility] Name: TONY GUERRA Farrukh Simon [facility] 09:46:00-00:00 [facility] : 1960, Age: 58, Sex: SHIRA Arz[place] [address] Unit #: [id number], Status: DIS IN [phone] Location: [address] [place] [address] Dictated by: Farrukh Simon MD Admission Date: 03/15/19 Report #: [id number] Discharge Date: 03/25/19 CC: Farrukh Simon MD, Kimberly PA KEATON, TONI W MD PROGRESS NOTE DATE OF SERVICE: 03/25/2019 SUBJECTIVE: Ms. Guerra had a much better day yesterday and is feeling pretty well this morning. She did not h ave any vomiting. She had one episode of nausea. She was able to keep down Cream of Wheat and half a bowl of rice yesterday as well as all of her MightyShakes. She is hoping to be di scharged from the hospital if possible. OBJECTIVE: VITAL SIGNS: Tem perature 97.9, pulse 63, blood pressure 98/65, and 97% oxygen saturation on room air. GENERAL: No acute distress. HEART: Regular rate and rhythm. LUNGS: Clear to auscultation bilaterally. ABDOMEN: Bowel sounds present. Soft and nontend er to palpation. EXTREMITIES: No peripheral edema. LABORATORY STUDIES: WBC 4.2 , hemoglobin 12.2, platelets 141. Sodium 138, potassium 4.4, BUN 24, creatinine 0.68, and glucose 90. L FTs all remain normal. Total bilirubin 0.3, alkaline phosphatase 69, AST 26, ALT 32, lipase 25. ASSESSMENT AND PLAN: 1. Persistent nausea and vomiting, improved a b it since yesterday. 2. Marijuana use. 3. Familial adenomatous lukasz yposis. Extensive fairly recent workup has included negative or unrevealing eso phagogastroduodenoscopy, colonoscopy, CT of the abdomen, CT of the head, gastric emp tying study, and lab evaluation. There has been some suspicion for possible cannabinoid hyperemesis syndrome, though, this is not certain. The patient is goi ng to completely stop using any marijuana. She did well yesterday and this morning after starting low-dose IV Reglan. I am not sure how much of her improvement can really be attributed to this, but it would certainly be worthwhile to continue it a t least in the short term. The patient is able to keep down her nutritional supple ments if not so much solid food yet. I think it would be reasonable to discharge from the hospit al if she is feeling well later today, on oral Reglan 5 mg three t imes daily with meals and at night. She can follow up in the GI Clinic with Dr. Kyra montejo or one of his physician assistants within the next couple of weeks. Hopefully, the pa tania will do well with this and would not have to go back on TPN. Job ID: [id number] K Dictated by: Farrukh Simon MD <Electronically signed by Farrukh Simon MD> 1632 K Dictated Date/Time: 03/25/19 0754 Transcribed Date/Time: 03/25/19 4140 Watch Guard Gate: RAFA 2019-03-24 [facility] Name: TONY GUERRA, ST[facility] 09:35:00-00:[address] : 1960, Age: 58, [place]: [place] [address] Unit #: [id number], Status: ADM IN [phone] Location: [facility] 203-P Dictated by: DERRELL ADAMSON MD Admission Date: 03/15/19 Report #: [id number] Discharge Date: CC: DERRELL ADAMSON MD, Kimberly PA KEATON, TONI W MD PROGRESS NOTE DATE OF SERVICE: 03/24/2019 SUBJECTIVE: The patient is seen and examined at bedside. She was able to keep her shakes down yesterday. Dr. Simon saw her last night and he decided to give her Reglan to see whether this can help with her vomiting. She vomits mainly on solid foods. She still has some abdominal dis comfort, mainly in the lower parts and pelvis. OBJECTIVE: VITAL SIGNS: Blo od pressure 123/82, pulse is 80, temperature is 98.2, respirations 16, O2 saturation is 96% on room a ir. HEENT: Her head is atraumatic and normo cephalic. Eyes are PERRLA. Sclerae are nonicteric. Oral mucosa is moist. NECK: Supple. LUNGS: Clear. HEART: S1, S2 normal. ABDOMEN: Soft. Mildly tende r in pelvic area and hypogastric area. No guarding. No masses. EXTREMITIES: No clubbing, cyanosis, or edema. NEUROLOGICAL EXAMINATION: Intact. SKIN: Looks better daily. There is no any problem with her TPN infusion. LABORATORY DATA: White coun t is 4.8, hemoglobin 13.9, hematocrit 43.2, platelet count is a 156. IMPRESSION: 1. Nausea, vomiting, and ab dominal pain, status post thorough GI workup. She was started on Reglan by Dr. Zakia holland who is yardage control operator forming for Dr. Rebolledo this weekend. She will continue her shakes. She wi ll continue her TPN and we will see whether she can be discharged home on TPN. 2. Severe malnutrition secondary to #1. 3. History of lupus with negative markers. 4. History of seizures. 5. Familial adenomatous polyposis. 6. Hiatal hernia. 7. Status post total colectomy with J-pouch for mation. Job ID: [id number] K Dictated by: DERRELL ADAMSON MD <Electronically signed by DERRELL ADAMSON MD> 03/24/19 1252 K Dictated Date/Time: 03/24/19904 Transcribed Date/Time: 03/24/19929 Watch Guard Gate: RAFA 2019-03-24 [facility] Name: TONY GUERRA David [facility] 09:18:00-00:[address] : 1960, Age: 58, Sex: SHIRA Arz[place] [address] Unit #: [id number], Status: ADM IN [phone] Location: [address] [place] [address] Dictated by: Farrukh Simon MD Admission Date: 03/15/19 Report #: [id number] Discharge Date: CC: Farrukh Simon MD, Kimberly PA KEATON, TONI W MD PROGRESS NOTE DATE OF SERVICE: 03/24/2019 SUBJECTIVE: Mrs. Guerra says she is feeling about the same, pretty discouraged as the nausea persists. She dean d 1 episode of emesis yesterday with Cream of Wheat. She is able to hold down the MightyShakes. PHYSICAL EXAMINATION: VITAL SIGNS: Temperature 98.2, pulse 80, blood pressure 123/82, 96% oxygen saturation on room air. GENERAL: No acute distress. HEART: Regular rate and rhythm. LUNGS: Clear to auscultation bilaterally. ABDOMEN: Soft, nontender to palpation. EXTREMITIES: No peripheral edema. LABORATORY STUDIES: Glucose 96. No other new la bs today. ASSESSMENT AND PLAN: 1. Persistent nausea and vomiting. 2. Marijuana use. Extensive fairly recent maria del carmen p has included negative for unrevealing EGD, colonoscop y, CT of the abdomen, CT of the head, gastric emptying study, and lab evaluation. There is some suspic ion for possible cannabinoid hyperemesis syndrome, though this is not certai n. The patient is going to completely stop using any m arijuana. I would like to try her on low-dose IV Reglan today, 5 mg every 8 hours, to see how much this helps. Continue Zofran as needed. Again, if she is indeed abl e to tolerate 3 to 4 cans of Ensure or MightyShakes per day, then I think she could potentially be discharged from the hospital without TPN. Otherwise, I note that arrangements are being m kimberly for possible home TPN. We will check labs tomorrow morning. Job ID: [id number] K Dictated by: Farrukh Simon MD <Electronically signed by Farrukh Simon MD> 1823 K Dictated Date/Time: 03/24/19 0828 Transcribed Date/Time: 03/24/19 0914 Watch Guard Gate: RAFA 2019-03-23 [facility] Name: TONY GUERRA Farrukh Simon [facility] 12:38:00-00:[address] : 1960, Age: 58, Sex: SHIRA Arz[place] [address] Unit #: [id number], Status: ADM IN [phone] Location: [address] [place] [address] Dictated by: Farrukh Simon MD Admission Date: 03/15/19 Report #: [id number] Discharge Date: CC: Farrukh Simon MD, Kimberly PA KEATON, TONI W MD PROGRESS NOTE DATE OF SERVICE: 03/23/2019 SUBJECTIVE: Ms. Guerra says she is feeling okay today. She has not vomited so far. She was able to keep down o ne can of Ensure so far today. Abdominal discomfort persists, primarily on the left side. She did have a bowel movement earlier today. OBJECTIVE: VITAL SIGNS: Tem perature 98.2, pulse 81, blood pressure 107/76, and 97% oxygen saturation on room air. GENERAL: No acute distress. Cachectic. HEART: Regular rate and rhythm. LUNGS: Clear to auscultation bilaterally. ABDOMEN: Bowel sounds prese nt. The abdomen is flat and soft. Some tenderness to palpation in the left side of the abdomen, but no guarding or rebound tenderness. EXTREMITIES: No peripheral edema. LABORATORY STUDIES: Glucose 101. No other new l abs today. ASSESSMENT AND PLAN: 1. Persistent nausea and vomiting. 2. Marijuana use. Dr. Rebolledo has performed an extensive fairly recent workup including negative or unrevealing EGD, colonoscop y, CT of abdomen, CT of head, gastric emptying study, and lab evaluation. There is some suspicion for pos sible cannabinoid hyperemesis syndrome. I discussed this with the patient and she has agreed to completely stop using any marijuana. She dean s tolerated a can of Ensure today, but has difficulty with any solid food or even with Cream of Wheat. I think that if we can get her up to 3 to 4 cans of Ensure per day and ot herwise, continue supportive care with antiemetics, that she could potentially be discharged from the hospital. Otherwise, I know that arrangements are being made for pos sible home TPN. Job ID: [id number] K Dictated by: Farrukh Simon MD <Electronically signed by Farrukh Simon MD> 1823 K Dictated Date/Time: 03/23/19 1208 Transcribed Date/Time: 03/23/19 1234 Watch Guard Gate: RAFA 2019-03-23 [facility] Name: TONY GUERRA JUAN DIEGO, [facility] 10:17:00-00:00 [address] : 1960, Age: 58, Sex: [place] [address] Unit #: [id number], Status: ADM IN [phone] Location: [address] [place] [address] Dictated by: DERRELL ADAMSON MD Admission Date: 03/15/19 Report #: [id number] Discharge Date: CC: DERRELL ADAMSON MD, Kimberly PA KEATON, TONI W MD PROGRESS NOTE DATE OF SERVICE: 03/23/2019 SUBJECTIVE: The patient is seen and examined at bedside. She vomited yesterday and she has some abdominal discomfort after that. OBJECTIVE: VITAL SIGNS: Blo od pressure is 105/78, pulse is 75, temperature is 98, respirations 16, O2 saturation is 98% on room a ir. HEENT: Head is atraumatic and normocephalic. Ey es are PERRLA. Sclerae are nonicteric. Oral mucosa is moist. NECK: Supple. LUNGS: Clear. HEART: S1 and S2 normal. ABDOMEN: Soft, although ten binta in the epigastric area to palpation. No guarding. No masses. EXTREMITIES: No clubbing, cyanosis, or edema. NEUROLOGIC: She is alert and oriented x4. LABORATORY DATA: Glycemia is ranging from 95 to 112. IMPRESSION: 1. Nausea, vomiting, abdomi nal pain. The patient is able to tolerate liquids, but as soon as she starts advan cing the diet, she starts vomiting. We will give her more time for the stomach t o settle down. In the meantime, she is going to get total parenteral nutrition and we will find out whether we can do total parenteral nutrition at home. Case Management is consulted . 2. Severe malnutrition secondary to #1. 3. History of lupus. 4. History of seizures. 5. Familial adenomatous polyposis. 6. Hiatal hernia. 7. Status post total colect maeve with J-pouch formation and testing for lupus came back negative. We will cont inue current regimen, and as I mentioned above, we will find out from manager case whether total parenteral nutrition can be used at home. Job ID: [id number] K Dictated by: DERRELL ADAMSON MD <Electronically signed by DERRELL ADAMSON MD> 03/23/19 1022 K Dictated Date/Time: 03/23/19 0954 Transcribed Date/Time: 03/23/19 1013 Watch Guard Gate: RAFA 2019-03-22 [facility] Name: CHARLIETONY Joshua [facility] 18:31:00-00:[address] : 1960, Age: 58, Sex: SHIRA Arz[place] [address] Unit #: [id number], Status: DIS IN [phone] Location: [address] [place] [address] Dictated by: Pieter Rebolledo MD Admission Date: 03/15/19 Report #: [id number] Discharge Date: 03/25/19 CC: Mandy Pavon TONI W MD Sultz, Joshua MD PROGRESS NOTE DATE OF SERVICE: 03/22/2019 REASON FOR CONSULTATION: Nausea, vomiting, and weight loss/malnutrition. SUBJECTIVE: The patient sta justin that early this morning she was feeling very good, was able to ambulate with only moderate assista nce via physical therapy this morning. She was also able to consume more liquids without any additional episodes of nausea, vomiting. Howeve r, this afternoon, she attempted to eat tuna fish and crackers with sudden return of nausea and vomiting with nonbloody emesis. This was alleviated somewhat with IV administration of Zofran. She also denies having a bowel movement over the las t 48 to 72 hours. Otherwise, she denies any fevers, chills, dysphagia, odynophagia, diarrhea, or co nstipation. OBJECTIVE: VITAL SIGNS: Temperature 98.4, pulse 74, blood pressure 101/64, respiratory rate 16, saturating 98% on room air . GENERAL: The patient is lyi ng in bed, in no acute distress. Alert and oriented x4. CARDIOVASCULAR: Regular rate and rhythm. RESPIRATORY: Clear to auscultation bilaterally. ABDOMEN: Normoactive bowel sounds. Soft, nondis tended, mild tenderness to palpation in the left lower quadrant. EXTREMITIES: No cyanosis, clubbing, or edema. C achectic in appearance. LABORATORY DATA: No current studies are availab le for review. IMAGING DATA: No current GI imaging is availabl e for review. ASSESSMENT AND PLAN: The vinnie marin is a 58-year-old female with past medical history of lupus, seizure disorder, hiatal stephani ia, and familial adenomatous polyposis syndrome, status post total colectomy w ith J-pouch formation, presenting with chronic nausea, vomiting, and severe protein-ca rebeca malnutrition. 1. Nausea and vomiting/maln utrition: The patient presents with a chronic history of nausea, vomiting with outpa tient workup negative including EGD, gastric emptying study, CT scan of the abdom en and pelvis, CT scan of the head, colonoscopy, and routine labs. However, with continued episodes of nausea and vomiting, she has been unable to maintain adequate nutrition resulting in ljgxcwmx-bs-kyewwf malnutrition. She continues to have incre ased nausea, vomiting while here in the hospital with the ingestion of primarily lorie d food stuffs, but has been able to tolerate liquids well without further exacerbatin g her nausea and vomiting. She is currently doing well on TPN with further attempt s to advance her diet unsuccessful thus far. At this time, the etiology for pullman clerk ángel nausea, vomiting seems to be more related to possible cannabinoid-hyperemesis syndrome, given the relatively negative and/or normal findings upon studies obtai jed thus far and with her chronic use of marijuana. Chronic nausea and vomiting syndrome are also w ithin the differential as are rumination syndrome, cyclic al vomiting syndrome, and possible adrenal insufficiency (although labs do not reflect this). RECOMMENDATIONS: 1. Would continue TPN. 2. Would continue aggressive antiemetic support . 3. Advance diet as tolerate d, but may require more of a liquid diet to maintain adequate oral nutrition. Wo uld consider TPN to be administered on a home health basis in a short term. We will continue to follow. Dr. Simon will be on-call this weekend. Please direct any additional questions toward him. Job ID: [id number] K Dictated by: Pieter Rebolledo MD <Electronically signed by Pieter Rebolledo MD> 2012 K Dictated Date/Time: 03/22/191801 Transcribed Date/Time: 03/22/191826 Watch Guard Gate: RAFA 2019-03-22 [facility] Name: [facility] 14:07:00-00:00 [employer] : 1960, Age: 58, Sex: [place] [address] Unit #: [id number], Status: ADM IN [phone] Location: [address] [place] [address] Dictated by: DERRELL ADAMSON MD Admission Date: 03/15/19 Report #: [id number] Discharge Date: CC: DERRELL ADAMSON MD, Kimberly PA KEATON, TONI W MD PROGRESS NOTE DATE OF SERVICE: 03/22/2019 SUBJECTIVE: The patient is seen and examined at the bedside. She is tolerating some shakes orally. There is no problem with he r TPN. OBJECTIVE: VITAL SIGNS: Blood pressure is 153/77, pulse is 71, temperature is 97.8, respirations are 16, and O2 saturation is 98% on room air. HEENT: She is atraumatic and normocepha lic. Her skin of the face looks better after those few days on TPN. Her face h as some colors. I am pleased with this progress. Sclerae are nonicteric. Oral mucosa i s moist. NECK: Supple. LUNGS: Clear. HEART: S1 and S2 distant. No S3, no S4. ABDOMEN: Soft. Mildly tender in the epigastric area. No guarding. No masses. EXTREMITIES: No clubbing, cyanosis, or edema. NEUROLOGICAL: She is alert and oriented x4. LABORATORY DATA: Glycemia is ranging from 92 to 111. IMPRESSION AND PLAN: Chroni c nausea and vomiting, resulting in 40 pounds loss in the last 2 months, felt to be related to her chronic cannabinoid use. The patient is tolerating her TPN witho ut any problems. Also, she is able to keep her liquids down. She is trying on soft and solids. We will try to find out whether her TPN at home is an option. We will get a case management consult, and the JULIAN came back negative and complement C3 and C4 came back within normal limits. For now, we will continue current regimen, a nd we will see whether we can send her home on TPN. Job ID: [id number] K Dictated by: DERRELL ADAMSON MD <Electronically signed by DERRELL ADAMSON MD> 03/23/19 0714 K Dictated Date/Time: 03/22/19 1351 Transcribed Date/Time: 03/22/19 1403 Watch Guard Gate: RAFA 2019-03-21 [facility] Name: CHARLIEPieter Domínguez [facility] 22:35:00-00:[address] : 1960, Age: 58, Sex: SHIRA Arz[place] [address] Unit #: [id number], Status: DIS IN [phone] Location: [address] [place] [address] Dictated by: Pieter Rebolledo MD Admission Date: 03/15/19 Report #: [id number] Discharge Date: 03/25/19 CC: Mandy Pavon TONI W MD Sultz, Joshua MD PROGRESS NOTE DATE OF SERVICE: 03/21/2019 REASON FOR CONSULTATION: Nausea, vomiting, and weight loss/malnutrition. SUBJECTIVE: The patient sta justin that she was able to consume some soup as well as applesauce earlier today wi th no increased nausea or vomiting associated with this. She did have some nausea la ter on this afternoon, but was given IV antiemetics and responded well to administr ation. She also worked with Physical Therapy today and was able to ambulate in the hallway with some assistance. She has not had a bowel movement over the last 24 t o 48 hours. Otherwise, she denies any fevers, chills, vomiting, dysphagia, odynophagia, diarrhea, or constipation. OBJECTIVE: VITAL SIGNS: Temperature 98.3, pulse 74, blood pressure 94/76, respiratory rate 20, saturating 97% on room air . GENERAL: The patient was ly ing in bed, in no acute distress. Alert and oriented x4. CARDIOVASCULAR: Regular rate and rhythm. RESPIRATORY: Clear to auscultation bilaterally. ABDOMEN: Normoactive bowel sounds. Soft, nondis tended. Mild tenderness to palpation in the left lower quadrant. EXTREMITIES: No cyanosis, clubbing, or edema. LABORATORY DATA: Chemistry from earlier today showing a phosphorus of 4.5 and magnesium of 2.1. IMAGING DATA: No current GI imaging is availabl e for review. ASSESSMENT AND PLAN: The vinnie marin is a 58-year-old female with past medical history of lupus, seizure disorder, hiatal stephani ia, and familial adenomatous polyposis syndrome, status post total colectomy w ith J-pouch formation, presenting with chronic nausea, vomiting, and severe protein-ca rebeca malnutrition. Nausea and vomiting: The vinnie marin presents with a chronic history of nausea and vomiting with negative outp atient workup including esophagogastroduodenoscopy, gastric emptying study, CT scan of the abdomen and pelvis, CT scan of the head, colonoscopy, and routine la bs. However, as the result of this chronic nausea and vomiting, she has been unab le to maintain adequate nutrition, which has now resulted in severe malnutrition and inability to tolerat e anything by mouth. With her increasing weakness and int olerance to oral intake, prompted her to seek healthcare assistance and was admitted to the hospital with placement on TPN to bolster her nutritional status. Current ly, she is doing well on TPN with attempts to advance her diet successful today g iven increased time and minimal amounts of ingestion. At this time, the etiology for chronic nausea and vomiting seems to be more related to possible cannabinoid hypere mesis syndrome given the relatively negative and/or normal findings on the stud ies obtained thus far. With this particular syndrome, the washout period, symptom s be substantial and can sometimes even exhibit symptoms up to 6 months after cessation of marijuana. RECOMMENDATIONS: 1. We would continue TPN for severe protein-alden orie malnutrition and careful monitoring of the serum arron mistries during this time. We will obtain CMP daily for monitoring of those things as well as magnesium and phosphorus. 2. Continue aggressive antiemetic support. 3. Advance diet as tolerate d. Once the patient is able to tolerate a bit more of a liquid diet, then we will c onsider possible discontinuation of the TPN or even discharged to home with home healthcare for TPN in a short-term basis. We will continue to follow. Please call with an y questions. Job ID: [id number] K Dictated by: Pieter Rebolledo MD <Electronically signed by Pieter Rebolledo MD> 2012 K Dictated Date/Time: 03/21/192140 Transcribed Date/Time: 03/21/192229 Watch Guard Gate: RAFA 2019-03-21 [facility] Name: [facility]RA [facility] 14:10:00-00:[address] : 1960, Age: 58, Sex: F SHIR[place] [address] Unit #: [id number], Status: ADM IN [phone] Location: [address] [place] [address] Dictated by: DERRELL ADAMSON MD Admission Date: 03/15/19 Report #: [id number] Discharge Date: CC: DERRELL ADAMSON MD, Kimberly PA KEATON, TONI W MD PROGRESS NOTE DATE OF SERVICE: 03/21/2019 SUBJECTIVE: The patient is seen and examined at the bedside. She tried some scrambled eggs yesterday an d got nauseated, could not eat, but she tolerates her liquids orally pretty well. OBJECTIVE: VITAL SIGNS: Blo od pressure is 135/84, pulse is 79, temperature is 98, respirations 16, and O2 saturation is 96% on ro om air. HEENT: Head is atraumatic and normocephalic. Ey es are PERRLA. Sclerae are nonicteric. Oral mucosa is moist. NECK: Supple. LUNGS: Clear. HEART: S1 and S2 normal. ABDOMEN: Soft. Mildly tender in the epigastric area. No guarding. No masses. EXTREMITIES: No clubbing, cyanosis, or edema. LABORATORY DATA: Glycemia i s ranging from 93 to 136, phosphorus 4.5, and magnesium 2.1. IMPRESSION AND PLAN: Most l ikely cannabinoid hyperemesis syndrome. The patient is going to try some food oral ly. She is tolerating liquids. At this point, we will continue TPN. We will sergio maríae PT and as soon as she is an able to tolerate some food orally, she will be discharged home. Job ID: [id number] K Dictated by: DERRELL ADAMSON MD <Electronically signed by DERRELL ADAMSON MD> 03/22/19 0708 K Dictated Date/Time: 03/21/19 1337 Transcribed Date/Time: 03/21/19 1406 Watch Guard Gate: MODL 2019-03-20 [facility] Name[facility]Y Joshua [facility] 12:22:00-00:00 [facility] [address] : 1960, Age: 58, Sex: SHIRA Arz[place] [address] Unit #: [id number], Status: DIS IN [phone] Location: [address] [place] [address] Dictated by: Pieter Rebolledo MD Admission Date: 03/15/19 Report #: [id number] Discharge Date: 03/25/19 CC: Mandy Pavon TONI W MD Sultz, Joshua MD PROGRESS NOTE DATE OF SERVICE: 03/20/2019 REASON FOR CONSULTATION: Nausea, vomiting, and weight loss/malnutrition. SUBJECTIVE: The patient was able to eat some crackers yesterday with some mildly increased abdominal discomf ort, but otherwise did not have any associated nausea or vomiting. Given increased c ourage, she attempted to eat scrambled eggs this morning and had progression back to nausea with vomiting of her ingested food stuffs. Currently endorsing some mi ld nausea, but no additional episodes of emesis since the ingestion of eggs this morn ing. She continues to have mild abdominal discomfort as well that is unchanged in l ocation or severity. Otherwise, she denies any fevers, chills, dysphagia, odynophagia, diarrhea, or co nstipation. OBJECTIVE: VITAL SIGNS: Temperature 98.5, pulse 81, blood pressure 138/82, respiratory rate 20, and saturating 96% on room air. GENERAL: The patient was ly ing in bed, in no acute distress. Alert and oriented x4. CARDIOVASCULAR: Regular rate and rhythm. RESPIRATORY: Clear to auscultation bilaterally. ABDOMEN: Normoactive bowel sounds. Soft, nondis tended, mild tenderness to palpation in the left lower quadrant. EXTREMITIES: No cyanosis, clubbing, or edema. LABORATORY DATA: No current studies are availab le for review. IMAGING DATA: No current GI imaging is availabl e for review. ASSESSMENT AND PLAN: The vinnie marin is a 58-year-old female with past medical history of lupus, seizure disorder, hiatal stephani ia, and familial adenomatous polyposis syndrome, status post subto jagjit colectomy with J-pouch formation, presenting with chronic nausea, vomiting, and severe protein ca rebeca malnutrition. Nausea and vomiting: The patient is presenting w ith chronic history of nausea and vomiting with negative studies thus far including EGD, gastric emptying study, CT scan of the abdomen and pelvis as well as a CT of t he head, colonoscopy, and routine labs. As a result of her increased nausea and vo miting, it has resulted in severe malnutrition due to the inability to keep ingested food stuffs down and as such during this hospitalization has been placed on TPN to b joslynter her nutritional status. Currently, she is doing well on TPN with attempts t o advance her oral diet unsuccessful thus far, but I am hopeful that she will able to tolerate this soon. At this time, the etiology for her chronic nausea and vomi ting seems to be more related to possible cannabinoid hyperemesis syndrome given the relatively negative and/or normal findings on the studies obtained thus far. RECOMMENDATIONS: 1. Would continue TPN for s evere protein calorie malnutrition and careful monitoring of chemistry during this time. 2. Continue aggressive antiemetic support. 3. Advance diet as tolerated. We will continue to follow. Please call with an y questions. Job ID: [id number] K Dictated by: Pieter Rebolledo MD <Electronically signed by Pieter Rebolledo MD> 2012 K Dictated Date/Time: 03/20/19 1206 Transcribed Date/Time: 03/20/19 1219 Watch Guard Gate: RAFA 2019-03-20 [facility] Name: TONY GUERRA [facility] 11:22:00-00:[address] : 1960, Age: 58, Sex: SHIRA Hough [address] Unit #: [id number], Status: ADM IN [phone] Location: [address] [place] [address] Dictated by: DERRELL ADAMSON MD Admission Date: 03/15/19 Report #: [id number] Discharge Date: CC: DERRELL ADAMSON MD, Kimberly PA KEATON, TONI W MD PROGRESS NOTE DATE OF SERVICE: 03/20/2019 SUBJECTIVE: The patient is seen and examined at the bedside. She is tolerating her TPN without any significant problems. She still has some abdominal discomfort, but she tried some crackers yesterday and she was a ble to keep them down. OBJECTIVE: VITAL SIGNS: Blo od pressure is 131/104 , respiratory rate is 16, O2 saturations is 96% on room air, temperat ure is 98.7 . GENERAL: She is malnourished, severely. HEENT: Sclerae are nonicteric. Conjunct ivae are palish. Oral mucosa is moist. NECK: Supple. LUNGS: Clear. HEART: S1 and S2 normal. ABDOMEN: Soft. Somewhat ten binta in the epigastric area. No guarding. No masses. EXTREMITIES: No clubbing, cyanosis, or edema. NEUROLOGIC: She follows my commands. She moves all 4 extremities. LABORATORY DATA: Labs showe d normal chemistry with phosphorus at 4.8, and the rest is within normal limits. This is most likely re lated to her TPN. IMPRESSION: Most likely, ca nnabinoid hyperemesis syndrome as suggested by Dr. Rebolledo since she used to smoke daily marijuana. She wi ll continue her TPN. We will continue antiemetics, and g radually, she will try to eat some solid food after she passes her trial with full liquid diet. She will continue PT daily and she had full workup done on outpatient basis and there is no plan to do any other testing anymore. Job ID: [id number] K Dictated by: DERRELL ADAMSON MD <Electronically signed by DERRELL ADAMSON MD> 03/21/19 0711 K Dictated Date/Time: 03/20/19 1058 Transcribed Date/Time: 03/20/19 1118 Watch Guard Gate: RAFA 2019-03-19 [facility] Name: TONY GUERRA Joshua [facility] 20:04:00-00:00 [employer] : 1960, Age: 58, Sex: SHIRA Arz[place] [address] Unit #: [id number], Status: DIS IN [phone] Location: [address] [place] [address] Dictated by: Pieter Rebolledo MD Admission Date: 03/15/19 Report #: [id number] Discharge Date: 03/25/19 CC: Mandy Pavon TONI W MD Sultz, Joshua MD PROGRESS NOTE DATE OF SERVICE: 03/19/2019 REASON FOR CONSULTATION: Nausea, vomiting, and weight loss/malnutrition. SUBJECTIVE: The patient had a PICC line placed yesterday, was ultimately placed on TPN and has been on TPN for the greater portion of this morning. So far, she has been able to tolerate it we ll with no observed adverse reactions. She has also been able to tolerate a few crac kers but did experience some mild abdominal discomfort with ingestion and did not eat much mor e than that. Otherwise, she denies any vomiting, fevers, chills, a bdominal pain, dysphagia, odynophagia, diarrhea, or constipation. She has not had a bowel movement since admission. OBJECTIVE: VITAL SIGNS: Temperature 98.4, pulse 71, blood pressure 123/84, respiratory rate 20, saturating 96% on room air . GENERAL: The patient is lyi ng in bed, in no acute distress. Alert and oriented x4. Cachectic in appearance. CARDIOVASCULAR: Regular rate and rhythm. RESPIRATORY: Clear to auscultation bilaterally. ABDOMEN: Normoactive bowel sounds. Soft. Nondis tended. Mild tenderness to palpation in the left lower quadrant. EXTREMITIES: No cyanosis, clubbing, or edema. LABORATORY DATA: No current studies are availab le for review. IMAGING DATA: CT of the abd omen and pelvis was obtained on March 18, 2019, which showed no evidence of acute intra-abdominal/pelvic abnormalities with evidence of cholecystectomy. There were some small subcenti meter hypodensity scattered throughout the liver, but a re too small to definitely characterize on the study. There was no evidence of biliary dilatation. ASSESSMENT AND PLAN: The vinnie marin is a 58-year-old female with past medical history of lupus, seizure disorder, hiatal stephani ia, and familial adenomatous polyposis syndrome, status post subto jagjit colectomy in J-pouch formation, presenting with chronic nausea, vomiting, and severe protein ca rebeca malnutrition. Nausea and vomiting. 1. The patient is presentin with a chronic history of nausea and vomiting that has been present for several mo nths and has been evaluated with negative studies thus far including EGD, gastric emptying study, CT scan, and routine labs. As a result of her chronic nausea and v omiting and has resulted in severe malnutrition due to her inability to keep inges lucy food stuffs down and as such has been placed on TPN for bolstering her nutritional status. Currentl y, doing well on TPN and I am hopeful that she will respo nd well to this treatment. At this time, the etiology for her chronic nausea and vomiting seems to be more related to possible cannabinoid hyperemesis syndrome given the relatively negative and/or normal findings on the studies obtained thus far. RECOMMENDATIONS: 1. We would continue TPN for severe protein alden orie malnutrition. 2. Strongly encouraged marijuana cessation due to the strong possibility of cannabinoid hyperemesis syndrome. 3. Continue aggressive antiemetic support. 4. Advance diet as tolerated. 5. No endoscopies are indic ated at this time given EGD and colonoscopy in November 2018 which were negative for overt pathology. We will continue to follow. Please call with a ny questions. Job ID: [id number] K Dictated by: Pieter Rebolledo MD <Electronically signed by Pieter Rebolledo MD> 2012 K Dictated Date/Time: 03/19/191929 Transcribed Date/Time: 03/19/191999 Watch Guard Gate: RAFA 2019-03-19 [facility] Name: TONY GUERRA [facility] 15:21:00-00:[address] : 1960, Age: 58, Sex: F SHIRA Perez [address] Unit #: [id number], Status: ADM IN [phone] Location: [address] [place] [address] Dictated by: DERRELL ADAMSON MD Admission Date: 03/15/19 Report #: [id number] Discharge Date: CC: DERRELL ADAMSON MD, Kimberly PA KEATON, TONI W MD PROGRESS NOTE DATE OF SERVICE: 03/19/2019 SUBJECTIVE: The patient is seen and examined at bedside. She has had PICC line done yesterday and she started on TPN. She is a ble to tolerate some crackers orally. OBJECTIVE: VITAL SIGNS: Blood pressure is 139/93, pulse is 68, temperature is 97.8, respirations 20, and O2 saturation is 97% on room air. GENERAL: She is severely malnourished. HEENT: Head is atraumatic, normocephalic. Sclerae are nonicteric. Oral mucosa is moist. NECK: Supple. LUNGS: Clear. HEART: S1, S2 normal. ABDOMEN: Soft. Somewhat tender in the left lowe r quadrant. No guarding. No masses. EXTREMITIES: No clubbing, c yanosis, or edema. She follows my commands. She moves her all 4 extremities. LABORATORY DATA: Lab work today, none. IMPRESSION: 1. Severely malnourished vinnie marin, status post PICC line placement and TPN start. 2. Recurrent seizures, on Keppra, controlled. 3. Nausea, vomiting, abdomi nal pain, weight loss with negative CT of the abdomen, felt to be related to her cannabinoids use pullman clerk nically. PLAN: Plan is to continue current regimen. Job ID: [id number] Dictated by: DERRELL ADAMSON MD <Electronically signed by DERRELL ADAMSON MD> 03/20/19 0707 K Dictated Date/Time: 03/19/19 1452 Transcribed Date/Time: 03/19/19 1518 Watch Guard Gate: RAFA 2019-03-18 [facility] Name: ASUNCION GUERRAPieter Hernandez [facility] 19:40:00-00:[address] : 1960, Age: 58, Sex: SHIRA Arzate [id number] Unit #: [id number], Status: DIS IN [phone] Location: [address] [place] [address] Dictated by: Pieter Rebolledo MD Admission Date: 03/15/19 Report #: [id number] Discharge Date: 03/25/19 CC: Mandy Pavon TONI W MD Sultz, Joshua MD PROGRESS NOTE DATE OF SERVICE: 03/18/2019 REASON FOR CONSULTATION: Nausea, vomiting, and weight loss. SUBJECTIVE: The patient states that she her nausea and vomiting have improved significantly with the regu lar administration of oral antiemetics. She has not had any additional episodes of vomiting today. She did have a PICC line placed today as well in anticipation for pl acing the patient on TPN. She also is scheduled for CT of the abdomen and pelvis later on today for fu rther evaluation of any intraabdominal abnormality that might be contributing to her nausea and vomiting. Otherwise she states that s he continues to have significant fatigue, but otherwise denies any vomiting, fevers, chills, abdominal pain, dysphagia, odynophagia, diarrhea, or constipation. OBJECTIVE: VITAL SIGNS: Temperature 97.9, pulse 56, blood pressure 126/73, respiratory rate 16, and saturating 97% on room air. GENERAL: The patient was ly ing in bed, in no acute distress. Alert and oriented x4. Cachectic in appearance. CARDIOVASCULAR: Regular rate and rhythm. RESPIRATORY: Clear to auscultation bilaterally. ABDOMEN: Normoactive bowel sounds. Soft, nondis tended, mild tenderness to palpation in the left lower quadrant. EXTREMITIES: No cyanosis, clubbing, or edema. LABORATORY DATA: No current studies are availab le for review. IMAGING DATA: CT of the abdomen and pelvis is p ending at this time. ASSESSMENT AND PLAN: The vinnie marin is a 58-year-old female with past medical history of lupus, seizure disorder, hiatal hernia, and familial adenomatous polyposis type syndrome, status post subto jagjit colectomy and J-pouch formation, presenting with chronic nausea, vomiting, and severe protein-ca rebeca malnutrition. Nausea and vomiting. The patient is presenting w ith a chronic history of nausea and vomiting that has been present for several months at this point a nd has been evaluated as an outpatient by myself. Current workup thus far h as included negative EGD with biopsies negative for eosin ophilic esophagitis as well as negative gastric emptying study for further evaluatio n of her nausea and vomiting. With the intermittent nature of her nausea and vomiting as an outpatient, it has resulted in severe malnutrition due to the patric bility to keep anything down, and as such, placement on TPN at this time is a prude nt course of action in terms of improving her nutrition during this hospitalization. However, at this t freda, she continues to smoke marijuana, which could also contribute to cannabinoid hyperemesis syndrome, which she has been counseled upon in the past and could generate exactly the clinical picture that we are seeing now. She is currently slated for CT of the abdomen and pelvis for further evaluati on of any extraluminal abnormalities and I am curious to see the results of this stanislaw dy as they were going to be done as an outpatient prior to admission. RECOMMENDATIONS: 1. We will follow up on the CT of the abdomen and pelvis with further management guided by the results. 2. Agree with the placement of the PICC line in anticipation of placing the patient on TPN for severe protein-calorie malnutrition. 3. I reiterated strongly to the patient about all marijuana cessation as it can generate the nausea and vom iting and inability to tolerate p.o., creating this clinical picture to the patient. 4. Further endoscopies are not indicated at thi s time given recent EGD and colonoscopy in November 2018 that were fairly nega tive for overt pathology. We will continue to follow. Please call with an y questions. Job ID: [id number] K Dictated by: Pieter Rebolledo MD <Electronically signed by Pieter Rebolledo MD> 2012 K Dictated Date/Time: 03/18/191906 Transcribed Date/Time: 03/18/191936 Watch Guard Gate: RAFA 2019-03-18 [facility] Name: TONY GUERRA, [facility] 16:13:00-00:[address] : 1960, Age: 58, Sex: F SHIRA Perez [address] Unit #: [id number], Status: ADM IN [phone] Location: [address] [place] [address] Dictated by: DERRELL ADAMSON MD Admission Date: 03/15/19 Report #: [id number] Discharge Date: CC: DERRELL ADAMSON MD, Kimberly PA KEATON, TONI W MD PROGRESS NOTE DATE OF SERVICE: 03/18/2019 SUBJECTIVE: The patient is seen and examined at bedside. She is able to tolerate some broth without nausea or vomiting. OBJECTIVE: VITAL SIGNS: Blo od pressure is 126/73, pulse is 56, respirations 16, temperature 97.9, O2 saturation is 97%. She is severely malnourished. HEENT: Her eyes are PERRLA. Sclerae are nonicte shalini. Oral mucosa is moist. NECK: Supple. LUNGS: Clear. HEART: S1 and S2 normal. ABDOMEN: Soft. Somewhat tender on palpation in both lower and mid parts. No guarding. No masses. EXTREMITIES: No clubbing, cyanosis, or edema. S he lost a lot of subcutaneous tissue and fat. NEUROLOGIC: She is alert and oriented x4. There are no any motor or sensory deficits. LABORATORY DATA: None today. IMPRESSION: 1. Recurrent seizures, on Keppra, controlled. 2. Nausea, vomiting, abdomi nal pain, and weight loss under Dr. Rebolledo's diagnostic workup. The patient is supp osed to have MRI tomorrow. Dr. Rebolledo is going to see her tonight and we will set her up for MRI juanito rrow. 3. Severe malnutrition secondary to #2. The pat león got the PICC line and we started her on TPN today, which was customized by dietitian. Job ID: [id number] K Dictated by: DERRELL ADAMSON MD <Electronically signed by DERRELL ADAMSON MD> 03/19/19 0717 K Dictated Date/Time: 03/18/19 1549 Transcribed Date/Time: 03/18/19 1607 Watch Guard Gate: RAFA 2019-03-18 [facility] Name: TONY GUERRA Anca Posadas [facility] 10:06:00-00:00 [address] : 1960, Age: 58, Sex: SHIRA Arzate [id number] Unit #: [id number], Status: DIS IN [phone] Location: [address] [place] [address] Attending Phys: Owen Hemphill MD Discharge Date: 03/25/19 Report #: [id number] Consulting Phys: Anca Posadas MD CC: Mandy Pavon TONI W MD Ragupathi, Kuppusamy MD CONSULTATION REPORT DATE OF CONSULTATION: 03/16/2019 REASON FOR CONSULTATION: Nausea, vomiting, not a ble to keep anything down and progressive weight loss. HISTORY OF PRESENT ILLNESS: Ms. Tony Guerra is a very pleasant 58-year-old fragile looking fe male, who had been seeing Dr. Pieter Rebolledo recently. The patient has history of n ausea and vomiting, not able to keep anything down and also some vague abdominal pa in. She was seen by Dr. Pieter Rebolledo recently and have EGD done. As per the patient , EGD was negative. She was supposed to have an MRI of the abdomen this week and sh e came to get the contrast. While in the hospital, she had an episode of fevers. She has multiple fevers and a lso was taken to the ER. Apparently, she had three ep isodes of seizures. The patient really does not recall exactly what happened. The p phoenix is noted to have chronic seizure disorder for many years. The patient had no seizures for last two years. The patient says whatever she eats or drinks, everything keeps coming out. Even she drinks water, she is unable to keep it amador n. The patient has no abdominal pain at present. The patient is status post total colectomy with ileal J-pouch many years ago. She has just done at [facility]. The pat ient has history of FAP in the past. She has undergone multiple surgeries including cholecystectomy, ap pendectomy, hysterectomy, oophorectomy, etc. The patie nt has history of lupus diagnosed many years ago. I am really not sure whether she has lupus, because her symptoms are very non specific and really not sure whether she has lupus. 1. FAP. 2. Hiatal hernia. 3. Chronic acid reflux. 4. Lupus, not on any medication. PAST SURGICAL HISTORY: 1. Cholecystectomy. 2. Appendectomy. 3. Hysterectomy. 4. Bilateral oophorectomy. 5. Total colectomy with ileal J-pouch. She has no history of heart disease, lung diseas e, diabetes, or hypertension. SOCIAL HISTORY: The patient smokes a pack of cig arettes per day. She does not drink alcohol. No history of any drug use. PSYCHIATRIC HISTORY: She denies history of depre ssion and anxiety. ALLERGIES: ALLERGY TO OPIATES. FAMILY HISTORY: Unremarkable. MEDICATIONS: Reviewed. 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 No syncope. No history of seizure disorder. EYES: No history of any impaired vision or diplo teddy. EARS: No ear pain. No discharge. NOSE: No nose bleed. THROAT: No sore throat or dysphagia. NECK: No stiffness on limited movements. BREASTS: No breast masses or discharge from the nipple. LUNGS: No chronic coughing. No hemoptysis. No dy spnea. CARDIOVASCULAR: No chest pain. No palpitation. N o dyspnea, orthopnea, or PND. GI: Nausea, vomiting, vague abdominal pain. : Not relevant. MUSCULOSKELETAL: She has history of some pain in the left elbow and also left wrist, some back pain. NEUROLOGIC: Unremarkable PSYCHIATRY: Unremarkable. PHYSICAL EXAMINATION: GENERAL: She is a very thin built, very fragile looking. She is skin and bone. She appears very comfortable, in no acute distre ss. VITAL SIGNS: Afebrile, pulse is 68, blood pressu re 118/82. HEENT: Conjunctivae clear. NECK: Supple. No adenitis or thyromegaly noted. CARDIOVASCULAR: First and second heart sounds appear normal. LUNGS: Clear to auscultation. ABDOMEN: Soft to palpate. She has a midline scar . Abdomen is nondistended. Abdomen is nontender. No organomegaly or masses. EXTREMITIES: Reveal no edema. LABORATORY DATA: CBC; WBC 93 00, hemoglobin 14.5 dropping to 12, hematocrit 36, MCV 94.9, platelet count is 162, 000, polymorphs 47, lymphocytes 43. Chem panel; sodium 136, potassium 3.9, chloride 107, bicarb 22, BUN is 11, creatinine 0.78, glucose is 84, calcium 8.2, bilirubin 0 .6, AST 15, ALT 9, alkaline phosphatase 50, albumin 3.7. She had a brain CT scan and MRI, they were repo rted normal. CLINICAL IMPRESSION: 1. A 58-year-old female with history o f seizure disorder and having episode of fever yesterday. CAT scan of the head and MRI are negative. She gives a history of progressive weigh t loss of 40 pounds, and she says she is unable to keep anything down between nausea and vomiting. She has seen Dr. Rebolledo in the recent past and EGD was negative. Abdomen is very benig n. 2. History of lupus erythema tosus, but at the present time she has no symptoms that suggest she has lupus active. 3. Seizure disorder. 4. Multiple surgeries including appendectomy, ch olecystectomy, hysterectomy, bilateral oophorectomy, etc. I had a long discussion with Ms. Guerra and explained to her that if she is not able to keep a nything down. She may have to consider having TPN. She was informed of the above and she is willing to have the TPN, if necessary.. Job ID: [id number] K Dictated by: Anca Posadas MD <Electronically signed by Anca Posadas> 03/26/19 1054 K Dictated Date/Time: 03/16/19 1339 Transcribed Date/Time: 03/16/19 1854 Watch Guard Gate: RAFA 2019-03-17 [facility] Name: TONY GUERRA [facility] 13:28:00-00:[address] : 1960, Age: 58, Sex: [place] [address] Unit #: [id number], Status: ADM IN [phone] Location: [address] [place] [address] Dictated by: DERRELL ADAMSON MD Admission Date: 03/15/19 Report #: [id number] Discharge Date: CC: DERRELL ADAMSON MD, Kimberly PA KEATON, TONI W MD PROGRESS NOTE DATE OF SERVICE: 03/17/2019 SUBJECTIVE: The patient is seen and examined at the bedside. There is not much change since yesterday. She tried some food yesterday, small amount, and she was able to keep it down without much nausea or vom iting. OBJECTIVE: VITAL SIGNS: Blo od pressure is 135/79, temperature is 97.6, pulse is 57, respiratory rate is 20, and O2 saturation i s 98% on room air. GENERAL: She is severely malnourished. She look s cold and sick. HEENT: Head is atraumatic and normocephalic. Ey es are PERRLA. Sclerae are nonicteric. Mucosa is moist. NECK: Supple. LUNGS: Clear. HEART: S1, S2 normal. ABDOMEN: Soft, mildly tender in the epigastric area. No guarding. No masses. EXTREMITIES: No clubbing, cyanosis, or edema. NEUROLOGIC: She is alert and oriented x4. There is no any motor or sensory deficits present. Cranial nerves are intact. LABORATORY DATA: White coun t of 5.5, hemoglobin 12.4, hematocrit 37.2, platelet count is 163,000. Normal electrolytes. BUN of 8 and creatinine of 0.76, total protein 5.7, globulin 2.1, complement C3 is 97, complement C4 is 18. Microbiology, nothing. MRI of the brain showed mild chronic i schemic white matter changes. Otherwise, it is negative. IMPRESSION: 1. Seizures controlled with Keppra. The patient was seen by neurologist, Dr. aGrcia. We are awaiting for the final report. 2. Nausea, vomiting, abdomi nal pain, and weight loss worked up by Dr. Rebolledo on outpatient basis. We do not have access to this and the patient is not really helping us to know what we found. 3. Severe malnutrition. Bibiana arently, she tolerated supplements yesterday and she tried some diet today. If she is still throwing up, we will do the PICC line tomorrow and TPN will be started. Dr Kiersten Rebolledo is going to take over GI followup and we are going to continue current regimen. Job ID: [id number] K Dictated by: DERRELL ADAMSON MD <Electronically signed by DERRELL ADAMSON MD> 03/18/19 0710 K Dictated Date/Time: 03/17/19 1252 Transcribed Date/Time: 03/17/19 1323 Watch Guard Gate: RAFA 2019-03-17 [facility] Name: TONY GUERRA Anca Posadas [facility] 10:47:00-00:[address] : 1960, Age: 58, Sex: SHIRA Arzate [id number] Unit #: [id number], Status: DIS IN [phone] Location: [address] [place] [address] Dictated by: Anca Posadas MD Admission Date: 03/15/19 Report #: [id number] Discharge Date: 03/25/19 CC: Mandy Pavon TONI W MD Ragupathi, Kuppusamy MD PROGRESS NOTE DATE OF SERVICE: 03/17/2019 SUBJECTIVE: This is a 58-year-old fema le, hospitalized after she is experiencing some seizures w katya came for the [facility] scheduling. The patient done well over the last 48 hours. She has no more seizures. She has no abdominal pain. She complains of nausea and vomiting off and on. Her symptoms are some what better since yesterday. She is taking supplement without any nausea or vomiting . she says she might like to try some food. PHYSICAL EXAMINATION: GENERAL: Appears very comfortable. She is very t hin built. VITAL SIGNS: Afebrile. Pulse is 65, blood pressu re 128/85. CARDIOVASCULAR SYSTEM: First and second heart so unds heard. LUNGS: Clear to auscultation. ABDOMEN: Soft. Abdomen is nontender. No organome victoria or masses. RECOMMENDATIONS: 1. Continue supplemental fee ding as she seems to be tolerating supplement without any nausea or vomiting. 2. May try diet today and see whether she can to lerate diet. 3. Dr. Pieter Rebolledo will ass [facility] care from tomorrow. Her lab data reviewed from this morning and all the labs are actually normal. Job ID: [id number] K Dictated by: Anca Posadas MD <Electronically signed by Anca Posadas D> 03/26/19 1051 K Dictated Date/Time: 03/17/19 1006 Transcribed Date/Time: 03/17/19 1032 Watch Guard Gate: RAFA 2019-03-16 [facility] Name: CHARLIETONY MADHAVI [facility] 13:30:00-00:[address] : 1960, Age: 58, Sex: SHIRA Arz[place] [id number] Unit #: [id number], Status: ADM IN [phone] Location: [address] [place] [address] Attending Phys: Owen Hemphill MD Discharge Date: Report #: [id number] Consulting Phys: SHELBIE GARCIA MD CC: Mandy Pavon TONI W MD THOMAS, MADHAVI MD CONSULTATION REPORT DATE OF TELEMEDICINE CONSULTATION: 03/16/2019 CHIEF COMPLAINT: Possible seizure. HISTORY OF PRESENT ILLNESS: The patient is a 58-year-old lady, who has lupus and familial amyloid polyposis f or which she has been seeing physician. She is not on any seizure medication. She has history of complex partial seizures which started about 6 years ago. Her last seizure was 2 years ago at which time she stopped her medication due to not having any seizures and she just moved to the area 6 months ago. She has not had good rocío ck with neurologist, because she stated neurologist want to start her on steroid s for her lupus and due to the FAP, she cannot take steroid. 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 PREVIOUS MEDICAL HISTORY: Positive for lupus, fa milial adenomatous polyposis, arthritis, seizures, and she does not drive. She sees a senior compensation consultant. PAST SURGICAL HISTORY: She h ad a surgery for lymph node removal near her C-spine. She had a hysterectomy, gall bladder surgery for gallstone removal. She also had lymph node surgery. FAMILY HISTORY: She has 3 br others, 2 of them had health issues, 1 had an [place], the other one is disabled due to chemical exposure at [email or web address] and he was taken immediately to the hospital and he has severe neurological symptoms from it. Her mother is 80 years old and h as melanoma and arthritis. Her father passed at 50 from CVA. On her father's side, there is history of C VAs. LABORATORY WORKUP: White count 5, hemogl obin 12, hematocrit 36, platelets 162. Chemistry; sodium 136, potassium 3.9, chloride 1 07, BUN 11, creatinine 0.78. Urinalysis is negative. Urin e tox is positive for cannabinoids. Her current MRI of the brain was completed and I gave the report to the patient as well. The patient has mild chronic ischemic white matter changes, otherwise negative. REVIEW OF SYSTEMS: PULMONARY: Negative for cough , shortness of breath. GI: Negative for vomiting, nausea, and diarrhea. NEUROLOGIC: Positive for seizure. ENDOCRINE: Negative. MUSCULOSKELETAL: Positive for arthritis. GENITOURINARY: Negative. DERMATOLOGIC: Negative for any skin rash. PHYSICAL EXAMINATION: VITAL SIGNS: Temperature is 97.4, blood pressure is 138/76, pulse rate is 68. GENERAL APPEARANCE: Thin lee lt well-nourished lady, who seems slightly anxious. CHEST: Clear vesicular breathing. CARDIOVASCULAR: S1 and S2 heard. No murmurs. ABDOMEN: Soft. NEUROLOGICAL: Higher intelle ctual functions. Normal orientation to time, place, and person. Appropriate conversation. Cranial ne rves 2 through 12. Normal extraocular movements. Pupils are equal, 2 mm, r eactive to light bilaterally. Normal sensation of face cyndi aterally. No facial asymmetry noted. Tongue midline. No atrophy noted. Normal casie vation of palate. Normal hearing. Motor, bulk normal, tone normal. Strength 4/5 th roughout in upper and lower extremities. This was more of a generalized weakness du e to deconditioning. Muscle groups tested are deltoid, biceps, triceps, wrist extension and flexion, fi nger extension and flexion bilaterally and in the iliop soas, hamstrings, quadriceps, ankle dorsiflexion and plantar flexion. Deep tendon reflexes 3+ throughout in upper and lower extremities. Cerebellar, normal finger-t o-nose, guzr-[id number]. Sensory exam, normal to touch bilaterally. Gait not tested. IMPRESSION: The patient is a 58-year-old lady with lupus and familial adenomatous polyposis. She has known his tory of complex partial seizures and was observed to have a seizure during this a dmission. This is most likely due to her not being on oral medications for seizure . She has not taken any seizure medicine for 2 years now. Her examination is gene rally normal neurologically except for mild generalized weakness due to decreased ef fort and perhaps deconditioning. At this time, she will need to stay on seizure medications. RECOMMENDATIONS: Agree with Bryce. I advised her to see Dr. See as outpatient and alter established continuity of care with he r senior compensation consultant. Job ID: [id number] K Dictated by: SHELBIE GARCIA MD <Electronically signed by SHELBIE GARCIA MD> 0 03/23/19 0902 K Dictated Date/Time: 03/16/19 1118 Transcribed Date/Time: 03/16/19 1326 Watch Guard Gate: RAFA 2019-03-16 [facility] 13:29:00-00:[address] : 1960, Age: 58, Sex: F [place] [id number] Unit #: [id number], Status: ADM IN [phone] Location: [address] [place] [address] Dictated by: DERRELL ADAMSON MD Admission Date: 03/15/19 Report #: [id number] Discharge Date: CC: JUAN DIEGODERRELL ISAACS MD, Kimberly PA KEATON, TONI W MD PROGRESS NOTE DATE OF SERVICE: 03/16/2019 SUBJECTIVE: The patient is seen and examined at the bedside. She complains about abdominal pain and vomiting for a long time and weight loss about 40 pounds in the last 2 months. OBJECTIVE: VITAL SIGNS: Blo od pressure is 118/82, pulse is 68, respiratory rate is 20, temperature is 97.8, O2 saturation is 98% o n room air. GENERAL: She is very malnourished. She lost sub cutaneous tissue and fat. Malnourishment is severe. HEENT: Her head is atraumat ic and normocephalic. Sclerae are nonicteric. Pupils are responding to light properly. Oral mucosa i s moist. NECK: Supple. LUNGS: Clear. HEART: S1, S2 normal. No S3. No S4. ABDOMEN: Soft and tender in the epigastric area. No guarding. No masses. Bowel sounds present. EXTREMITIES: No clubbing, cyanosis, or edema. NEUROLOGICAL: She is alert and oriented x4. The re is no any sensory or motor deficits present. Cranial nerves are intact. LABORATORY DATA: White coun t of 5.0, hemoglobin 12.0, hematocrit 36.0, platelet count 162,000. Normal chemi stry except for serum total protein which is 5.7, and globulin 2.0. IMPRESSION: 1. Seizures. Apparently, richelle carey had seizures in the past, but she has not been taking any medications for that fo r approximately 2 years or more. Recently, she lost lot of weight, approximately 40 pounds. This could be a trigger for seizures to come back. She is started on Kep pra 500 mg twice a day. Neurology is consulted and MRA of the brain is pending. 2. Nausea, vomiting, abdominal pain, an d weight loss secondary to that during investigation by Dr. Rebolledo, her primary GI. We will obtain some studies to check what her lupus status is. She has a history of lupus in the past. 3. Severe malnutrition. We will start her on TPN after we obtain the PICC line. We will discuss the case with Dr. Jose E faith, who is yardage control operator forming for Dr. Rebolledo today. Job ID: [id number] K Dictated by: DERRELL ADAMSON MD <Electronically signed by DERRELL ADAMSON MD> 03/17/19 0721 K Dictated Date/Time: 03/16/19 1301 Transcribed Date/Time: 03/16/19 1325 Watch Guard Gate: RAFA 2019-03-16 [facility] Name: TONY GUERRA Isadora Rachel [facility] 05:49:00-00:[address] : 1960, Age: 58, Sex: SHIRA Arz[place] [address] Unit #: [id number], Status: DIS IN [phone] Location: [address] [place] [address] Dictated by: Isadora Rachel Admission Date: 03/15/19 Report #: [id number] Discharge Date: 03/25/19 CC: Mandy Pavon TONI W MD O'Briant, Deborah FNP HISTORY AND PHYSICAL REPORT CHIEF COMPLAINT: Seizure. PRIMARY CARE PHYSICIAN: Roe Chavez HISTORY OF PRESENT ILLNESS: Ms. Guerra is a 58-year-old female who presented to the emergency room after having a seizure in the lobby of the hospital just prior to arrival. Nurse reports that the patient seized three times after she arrived in the emergency room, 5 minutes apart and les s than 1 minute. Seizures described by witnessed. The patient hype rventilates and starts to seize. Brother reported to the ER staff that they were at the hospital to get the preliminary paperwork and contrast for an MRI that she has scheduled for her increased weight loss and inability to eat or drink [facility] without vomiting and back up. The patient reports that she has had an unexpla ined weight loss, has seen Dr. Rebolledo of the GI clinic and MRI was trying to help disc yasemin why. She has been unable to eat or drink much in the last several weeks. Reports that she does have a seizure disorder, although she has not had one in at least 2 y ears and reports that she has not taken any medication in at least that long. She rep orts pain to her left side initially after her seizures. She was given some Ativan a nd a bolus of fosphenytoin and has remained seizure-free after medications. CT of the brain show ed no mass or bleed or any significant intracranial process. The p atient also had a cervical spine CT which showed no fracture or subluxation. Po stsurgical changes related to anterior cervical fusion are present at C5-C6. Facet degenerative change s seen at the cervical spine. Emphysematous changes seen in the visualized lung apices bilaterally. Biapical pleural and parenchymal sca rring present. Visualized thyroid gland demonstrates a grossly normal nonenhanced CT appearance. Degenerative and postoperative changes including the cervical spin e with no fracture or subluxation seen. The patient also had a CTA of the head and neck and was negative . Blood work unremarkable. Toxicology with cannabinoid s detected, otherwise unremarkable. The patient does have a past medical history which is pertinent for lupus, FAP, unexplained unintentional weight loss, hiatal hernia. The patient subsequently admitted to the stroke unit for further workup. REVIEW OF SYSTEMS: Denies b ack pain or fall. Denies injury. Does report some left side pain. Denies mental st atus changes. Does report seizures. Denies headaches or sensory changes. All oth er systems reviewed and negative unless mentioned in the HPI. PAST MEDICAL HISTORY: Lupus, seizures, FAP, hia jagjit hernia. PAST SURGICAL HISTORY: Mult iple surgeries. Per CT scan of her neck, she has had at least cervical spine surgeries. PSYCHIATRIC HISTORY: None. SOCIAL HISTORY: Denies any alcohol or drug use. Reports that she smokes tobacco. She reports that she has cu t down because she generally is not feeling well and has issues with her stomach, which are being evalua lucy by Dr. Hickman. KNOWN ALLERGIES: She reports that she has aller gies to all opiates. PHYSICAL EXAMINATION: VITAL SIGNS: Blood pressure 125/87, pulse is 79, respirations 20, temperature is 98.2, and pulse ox is 100% on 2 L. CONSTITUTIONAL: The patient appears nontoxic, appears pain free. She is alert and oriented to person, place, and time. HEAD: Atraumatic and normoc ephalic. Eyes, pupils are equally round and reactive to light. Extraocular muscles are intact. ENT: Mucous membranes are moist. She has poor d entition. NECK: Normal range of motion. Trachea is midlin e. RESPIRATORY: Chest; breath sounds are clear. CARDIOVASCULAR: S1, S2. Heart sounds are normal . Regular rate and rhythm. ABDOMEN: Nontender. Bowel sounds are heard. BACK: Normal range of motion. No tenderness. EXTREMITIES: Upper extremit y; normal inspection, normal range of motion, motor strength is normal, sensati on is intact, radial pulses equal bilaterally. Lower extremity; normal range of motion, normal inspection, no signs of trauma, pedal pulses equal bilaterally. NEUROLOGIC: Speech is christina l. Cranial nerves 2 through 12 are grossly intact. No focal motor or sensory deficits. She is alert a nd oriented x3. SKIN: Warm and dry. Normal in color. PSYCH: Has a normal affect. IMAGING: EKG in the emergen cy room shows sinus tach, beats per minute 124, axis is normal. LABORATORY DATA: White bloo d cell count 9.3, hemoglobin 14.5, hematocrit 42.8, and platelet count is 251. Sodi um 138, potassium 3.8, chloride 102, carbon dioxide 17, gap is 23, BUN is 10, creat inine is 0.88, estimated GFR is 66, glucose is 108. Liver enzymes are unremarkable. Urine is negati ve. Toxicology positive for cannabinoids. ASSESSMENT AND PLAN: 1. We have ordered an MRI w ithout contrast and Neurology consult for recurrence of seizures, which she has not had in the last 2 years with some Tuan's paralysis noted. We will start her on some Keppra 500 mg p.o. b.i.d. gentle hydration at 75 mL per hour with normal saline. We have asked O T and PT to consult. 2. Unexplained weight loss, unable to eat or drink within the last several weeks without she says vomiting, even water. We have asked GI for their input and recommendations. The patien t states that she was scheduled for some sort of MRI on Monday with contrast. She w as actually here to worm picker further instructions and when she had her first seizure in the waiting r oom here. 3. Deep venous thrombosis and gastrointestinal prophylaxis started. 4. Case discussed with Dr. Alcala who agrees wi th the plan. 5. Hospital course is dependent on clinical kirti trujillo. Job ID: [id number] K Dictated by: Isadora Rachel <Electronically signed by Isadora Rachel > 04/13/19 1711 K Dictated Date/Time: 03/16/19 0047 Transcribed Date/Time: 03/16/19 0545 Watch Guard Gate: RAFA
[2023-01-25 16:12] LABS: Absolute Lymphocytes (CBC) 0.9 K/uL (0.7-4.9); Hematocrit 38.4 % (36.0-45.0); MCV 89.9 fL (80-100); MPV 8.9 fL (7.6-11.3); RBC Red Blood Cell Count 4.27 M/uL (3.86-4.86)
[2023-01-25] MEDS ORDERED: NA CHLORIDE 0.9% 500 ML ONE (16:40)
[2023-01-25] MEDS ORDERED: METOCLOPRAMIDE 10 MG/2mL INJ ONE (16:40)
[2023-01-25 17:22] LABS: Albumin 3.6 g/dL (3.4-5.0); Bilirubin Total 0.7 mg/dL (0.2-1.0); Potassium 4.3 mEq/L (3.5-5.1); Protein, Total 7.7 g/dL (6.4-8.2)
--- NOTE | 2023-01-25 19:29 | RAD REPORT ---
EXAM DESCRIPTION: RAD - ENTEROSTOMY TUBE CHECK W/CONTR - 01/25/2023 7:21 pm CLINICAL HISTORY: ABD PAIN COMPARISON: No comparisons TECHNIQUE: Single AP view of the abdomen. FINDINGS: Enteric tube of in the left flank. Injected contrast flows along loops of jejunum. No find ings to suggest extraluminal contrast. Punctate foci seen peripherally projecting under the left lowe r ribs may be extracorporeal. Nonobstructive bowel gas pattern. No air-fluid levels, free air, or pneumatosis. No suspicious calcif ications. No significant bony abnormality. IMPRESSION: No evidence of extraluminal contrast or extravasation.
--- NOTE | 2023-01-25 19:45 | ER ---
Nurse's Notes [facility] Name: Claudette Doran Age: 62 yrs Sex: Female : 1960 Arrival Date: 01/25/2023 Time: 14:20 Bed 25 Private MD: Diagnosis: Nausea with vomiting, unspecified;Gastrostomy complication, unspecified Presentation: 01/25 15:17 Chief complaint: Patient states: Severe abdominal pain for 4 days, had a fever along nj1 with pain. Has problems with feeding tube, waiting for new one to be replaced, pt unable to keep anything down "severe gastroparesis". Advised to come to ED by home health nurse to get treatment along with hydration. Coronavirus screen: Vaccine status: Patient reports being unvaccinated. Ebola Screen: Patient denies travel to an Ebola-affected area in the 21 days before illness onset. Initial Sepsis Screen: Does the patient meet any 2 criteria? HR > 90 bpm. No. Patient's initial sepsis screen is negative. Does the patient have a suspected source of infection? No. Patient's initial sepsis screen is negative. Risk Assessment: Do you want to hurt yourself or someone else? Patient reports no desire to harm self or others. Onset of symptoms was January 21, 2023. 15:17 Method Of Arrival: Ambulatory nj 15:17 Acuity: JIMBO 3 nj1 Historical: - Allergies: 15:23 Opiods; nj1 15:23 Morphine; nj1 15:23 Dilaudid; nj1 15:23 [place]; nj1 15:23 Codeine; nj1 15:23 Oxycodone; nj1 15:23 Demerol; nj1 - PMHx: 15:23 Gastroparesis; Lupus erythematosus; FAP; nj1 - PSHx: 15:23 Ileostomy; Feeding tube; nj1 15:25 Hysterectomy; nj1 - Immunization history:: Client reports having NOT received the Covid vaccine. - Social history:: Smoking status: Patient reports the use of cigarette tobacco products, smokes one pack cigarettes per day. Screenin:42 [facility] ED Fall Risk Assessment (Adult) History of falling in the last 3 months, iw including since admission. Abuse screen: Denies threats or abuse. Denies injuries from another. Nutritional screening: No deficits noted. Tuberculosis screening: No symptoms or risk factors identified. Assessment: 18:42 Reassessment: Patient appears in no apparent distress at this time. Patient and/or iw family updated on plan of care and expected duration. Pain level reassessed. Patient is alert, oriented x 3, equal unlabored respirations, skin warm/dry/pink. Patient states feeling better. Patient states symptoms have improved. Vital Signs: 15:17 BP 123 / 78; Pulse 115; Resp 19; Temp 99.5(TE); Pulse Ox 100% ; Weight 37.19 kg; Height nj1 5 ft. 4 in. ; Pain 9/10; 18:42 BP 121 / 78; Pulse 98; Resp 16; Pulse Ox 97% on R/A; iw 18:47 BP 109 / 78; Pulse 79; Resp 16; Pulse Ox 100% on R/A; iw 15:17 Body Mass Index 14.08 (37.19 kg, 162.56 cm) nj1 15:17 Pain Scale: Adult page hospital ED Course: 14:42 Patient arrived in ED. am2 15:14 Leo Johnson PA is PHCP. cp 15:14 Leo Latham MD is Attending Physician. cp 15:23 Triage completed. nj1 15:26 Arm band placed on. nj1 15:52 Inserted saline lock: 22 gauge in right antecubital area, using aseptic technique. iw Blood collected. 15:53 Sabi Sales, RN is Primary Nurse. iw 16:16 PEG Tube Check w/contrast In Process Unspecified. EDMS 18:42 Patient has correct armband on for positive identification. iw 18:47 No provider procedures requiring assistance completed. iw 19:43 Hua Servin MD is Referral Physician. cp 19:52 IV discontinued, intact, bleeding controlled, No redness/swelling at site. Pressure vg1 dressing applied. Administered Medications: 16:38 Drug: NS 0.9% IV 500 ml Route: IV; Rate: bolus; Site: right antecubital; iw 16:38 Drug: metoCLOPramide IVP 10 mg Route: IVP; Site: right antecubital; iw 19:51 Follow up: Response: Marked relief of symptoms vg1 18:47 Not Given (Patient Refused): NS 0.9% IV 500 ml IV at 100 ml/hr continuous iw Medication: 19:52 VIS not applicable for this client. vg1 Outcome: 19:44 Discharge ordered by . cp 19:51 Discharged to home via wheelchair, with family. vg1 19:51 Condition: good 19:51 Discharge instructions given to patient, Instructed on discharge instructions, follow up and referral plans. medication usage, Demonstrated understanding of instructions, follow-up care, medications, Prescriptions given X 1. 19:52 Patient left the ED. vg1 Signatures: Dispatcher [employer] EDMS Sabi Sales RN RN iw Leo Johnson PA PA cp Moreno, Amanda am2 Garcia, Victoria, RN RN vg1 Anna Lynne RN RN nj1
--- NOTE | 2023-01-25 19:45 | EDPHYS ---
Physician Documentation [facility] Name: Claudette Doran Age: 62 yrs Sex: Female : 1960 Arrival Date: 01/25/2023 Time: 14:20 Bed 25 Private MD: ED Physician Leo Latham HPI: 01/25 15:30 This 62 yrs old Female presents to ER via Ambulatory with complaints of Problem With cp Feeding Tube. 15:30 The patient presents with abdominal pain that is diffuse. cp 15:30 Onset: The symptoms/episode began/occurred 4 day(s) ago. Associated signs and symptoms: cp Pertinent positives: nausea and vomiting, anorexia, Pertinent negatives: constipation, diarrhea, fever. The symptoms are described as constant. Severity of pain: in the emergency department the pain is unchanged. Patient with history of gastroparesis and gastrostomy tube placement. Patient concerned gastrostomy tube is blocked due to increased pain. Historical: - Allergies: 15:23 Opiods; nj1 15:23 Morphine; nj1 15:23 Dilaudid; nj1 15:23 [place]; nj1 15:23 Codeine; nj1 15:23 Oxycodone; nj1 15:23 Demerol; nj1 - PMHx: 15:23 Gastroparesis; Lupus erythematosus; FAP; nj1 - PSHx: 15:23 Ileostomy; Feeding tube; nj1 15:25 Hysterectomy; nj1 - Immunization history:: Client reports having NOT received the Covid vaccine. - Social history:: Smoking status: Patient reports the use of cigarette tobacco products, smokes one pack cigarettes per day. ROS: 15:33 Constitutional: Positive for poor PO intake, Negative for body aches, chills, fever. cp 15:33 Eyes: Negative for injury, pain, redness, and discharge. cp 15:33 ENT: Negative for drainage from ear(s), ear pain, sore throat, difficulty swallowing, difficulty handling secretions. 15:33 Cardiovascular: Negative for chest pain, palpitations. 15:33 Respiratory: Negative for cough, shortness of breath, wheezing. 15:33 Abdomen/GI: Positive for abdominal pain, nausea and vomiting, anorexia, Negative for diarrhea, constipation, hematemesis, black/tarry stool, rectal bleeding. 15:33 Back: Negative for pain at rest, pain with movement. 15:33 Neuro: Negative for altered mental status, dizziness, headache, syncope, weakness. 15:33 All other systems are negative. Exam: 15:35 Head/Face: Normocephalic, atraumatic. cp 15:35 Constitutional: The patient appears in no acute distress, alert, awake, non-diaphoretic, non-toxic, well developed, well nourished, in obvious pain, uncomfortable. 15:35 Eyes: Periorbital structures: appear normal, Conjunctiva: normal, no exudate, no cp injection, Sclera: no appreciated abnormality, Lids and lashes: appear normal, bilaterally. 15:35 ENT: External ear(s): are unremarkable, Nose: is normal, Mouth: Lips: dry, Oral mucosa: pink and intact, moist, Posterior pharynx: is normal, airway is patent, no erythema, no exudate. 15:35 Chest/axilla: Inspection: normal, Palpation: is normal, no crepitus, no tenderness. 15:35 Cardiovascular: Rate: tachycardic, Rhythm: regular, Edema: is not appreciated, JVD: is not appreciated. 15:35 Respiratory: the patient does not display signs of respiratory distress, Respirations: normal, no use of accessory muscles, no retractions, labored breathing, is not present, Breath sounds: are clear throughout, no decreased breath sounds, no stridor, no wheezing. 15:35 Abdomen/GI: Inspection: right lower abdomen colostomy noted, left upper abdomen gastrostomy tube noted. 15:35 Back: pain, is absent, ROM is normal. cp 15:35 Skin: cellulitis, is not appreciated, no rash present. 15:35 Neuro: Orientation: to person, place \T\ time. Mentation: is normal, Cerebellar function: is grossly normal, Motor: moves all fours, strength is normal, Sensation: is normal. Vital Signs: 15:17 BP 123 / 78; Pulse 115; Resp 19; Temp 99.5(TE); Pulse Ox 100% ; Weight 37.19 kg; Height nj1 5 ft. 4 in. ; Pain 9/10; 18:42 BP 121 / 78; Pulse 98; Resp 16; Pulse Ox 97% on R/A; iw 18:47 BP 109 / 78; Pulse 79; Resp 16; Pulse Ox 100% on R/A; iw 15:17 Body Mass Index 14.08 (37.19 kg, 162.56 cm) nj1 15:17 Pain Scale: Adult nj1 MDM: 15:34 Patient medically screened. samuel 16:00 Differential diagnosis: bowel obstruction, gastritis, GI Bleed, non-specific abd pain, cp pancreatitis, Peptic Ulcer Disease, Perf. Duodenal Ulcer, Perf. Gastric Ulcer, Pyelonephritis, Ureterolithiasis, urinary tract infection. 19:43 Data reviewed: vital signs, nurses notes, lab test result(s), radiologic studies, plain cp films. 19:43 Consideration of Admission/Observation Escalation of care including cp admission/observation considered. I considered the following discharge prescriptions or medication management in the emergency department Medications were administered in the Emergency Department. See MAR. Test considered but Not performed: CT: abdomen/pelvis. Counseling: I had a detailed discussion with the patient and/or guardian regarding: the historical points, exam findings, and any diagnostic results supporting the discharge/admit diagnosis, lab results, radiology results, the need for outpatient follow up, a general surgeon, to return to the emergency department if symptoms worsen or persist or if there are any questions or concerns that arise at home. Response to treatment: the patient's symptoms have markedly improved after treatment, VSS. Pain and nausea improved. No vomiting observed. Patient declines any further testing. Xrays show patent gastrostomy tube. Will discharge to home for continued monitoring. 01/25 15:22 Order name: CBC with Diff; Complete Time: 18:40 cp 01/25 15:22 Order name: CMP; Complete Time: 18:40 cp 01/25 18:41 Interpretation: Normal except: NA 128; BUN 20; GFR 74; GLOB 4.1; A/G 0.9. cp 01/25 15:22 Order name: Lipase; Complete Time: 18:40 cp 01/25 15:22 Order name: PEG Tube Check w/contrast; Complete Time: 19:39 cp 01/25 15:22 Order name: IV Saline Lock; Complete Time: 15:52 cp 01/25 15:22 Order name: Labs collected and sent; Complete Time: 15:52 cp 01/25 19:39 Order name: PO challenge; Complete Time: 19:51 cp Administered Medications: 16:38 Drug: NS 0.9% IV 500 ml Route: IV; Rate: bolus; Site: right antecubital; iw 16:38 Drug: metoCLOPramide IVP 10 mg Route: IVP; Site: right antecubital; iw 19:51 Follow up: Response: Marked relief of symptoms vg1 18:47 Not Given (Patient Refused): NS 0.9% IV 500 ml IV at 100 ml/hr continuous iw Disposition Summary: 01/25/23 19:44 Discharge Ordered Location: Home cp Problem: an ongoing problem cp Symptoms: have improved cp Condition: Stable cp Diagnosis - Nausea with vomiting, unspecified cp - Gastrostomy complication, unspecified cp Followup: cp - With: Hua Servin MD - When: 1 - 2 days - Reason: Recheck today's complaints Discharge Instructions: - Discharge Summary Sheet cp - Nausea and Vomiting, Adult cp - Gastrostomy Tube Home Guide, Adult cp Forms: - Medication Reconciliation Form cp - Thank You Letter cp - Antibiotic Education cp - Prescription Opioid Use cp Prescriptions: - Reglan 10 mg Oral Tablet - take 1 tablet by ORAL route every 6 hours take 30 minutes before meals and at cp bedtime; 30 tablet; Refills: 0, Product Selection Permitted Signatures: Dispatcher [employer] Leo Wakefield MD MD cha Williams, Irene, RN RN iw Leo Johnson PA PA cp Anna Lynne, RN RN nj1 Coleen Sarabia RN vg1
[2023-01-25 20:26] VITALS: TEMP 99.5
[2023-01-25 20:28] VITALS: BP 109/78; O2SAT 100
== END 2023-01-25 19:52 | disposition home or self-care (01) ==
LOC: ER 14:20
DX: K94.20 Gastrostomy complication, unspecified (principal); K31.84 Gastroparesis; F17.210 Nicotine dependence, cigarettes, uncomplicated; Z88.5 Allergy status to narcotic agent
CPT/HCPCS: 85025; 36415; 83690; 80053; 49465; J2765; J7040